=== PATIENT | female | born 1945 | race Caucasian/White ===

== ENCOUNTER 2018-03-27 01:25 | Outpatient (CLI) | payer MEDICARE, SELFPAY ==
[2018-03-27 11:33] LABS: INR 2.3 (1.0-3.5); Prothrombin Time 21.9 sec (9.3-10.8)
== END 2018-03-27 01:26 ==
PROVIDERS: PCP Family Medicine; Visit Provider Family Medicine
DX: I67.89 Other cerebrovascular disease (principal); Z79.01 Long term (current) use of anticoagulants
CPT/HCPCS: 36415; 85610

== ENCOUNTER 2018-04-23 09:34 | Outpatient (CLI) | payer MEDICARE, SELFPAY ==
[2018-04-23 11:21] LABS: ALT 24 U/L (12-78); AST 18 U/L (15-37); Albumin 3.9 g/dL (3.4-5.0); Alkaline Phosphatase 67 U/L (46-116); BUN 13 mg/dL (7-18); Bilirubin, Total 0.7 mg/dL (0.2-1.0); CREATININE 0.94 mg/dL (0.55-1.02); Calcium 8.5 mg/dL (8.5-10.1); Chloride 104 mmol/L (98-107); Cholesterol 161 mg/dL (50-200); Estimated GFR 58.37 (mL/min/1.73m2); Glucose 128 mg/dL (70-100); HDL Cholesterol 60 mg/dL (40-60); LDL CHOLESTEROL 86 mg/dL (<100); Potassium 4.3 mmol/L (3.5-5.1); Sodium 138 mmol/L (136-145); Total Protein 7.5 g/dL (6.4-8.2); Triglyceride 97 mg/dL (30-150)
[2018-04-23 11:59] LABS: Hemoglobin A1C 5.9 % (4.5-6.2)
== END 2018-04-23 09:35 ==
PROVIDERS: PCP Family Medicine; Visit Provider Family Medicine
DX: I10 Essential (primary) hypertension (principal); E11.9 Type 2 diabetes mellitus without complications; I63.9 Cerebral infarction, unspecified
CPT/HCPCS: 36415; 80053; 80061; 83721; 82043; 82570; 83036

== ENCOUNTER 2018-05-05 09:12 | Outpatient (CLI) | payer MEDICARE, SELFPAY | END 2018-05-05 09:32 | PROVIDERS: PCP Family Medicine; Visit Provider Family Medicine | DX: I67.89 Other cerebrovascular disease (principal); Z79.01 Long term (current) use of anticoagulants | CPT/HCPCS: 36415; 85610 ==

== ENCOUNTER 2018-05-09 12:56 | Outpatient (CLI) | payer MEDICARE, SELFPAY ==
--- NOTE | 2018-05-09 12:47 | DI.US_ITS ---
SYMPTOMS/DIAGNOSIS: POSTMENOPAUSAL BLEEDING, N95.0, ENDOMETRIAL BIOPSY INSUFFICIENT PELVIC ULTRASOUND: Comparison is made with July,. Transabdominal and transvaginal exams were performed. The uterus measures 5.3 x 2.2 x 3.9 cm. The endometrial stripe measures 2 mm in thickness. Calcified fibroid is again noted measuring 2.4 cm in greatest dimension. The ovaries were unable to be visualized. No free fluid or hydronephrosis is seen. IMPRESSION: Calcified uterine fibroid. Normal-thickness endometrial stripe. Nonvisualization of the ovaries.
== END 2018-05-09 13:16 ==
PROVIDERS: PCP Family Medicine; Visit Provider Family Medicine
DX: N95.0 Postmenopausal bleeding (principal); D25.9 Leiomyoma of uterus, unspecified
CPT/HCPCS: 76830; 76856

== ENCOUNTER 2018-06-04 00:55 | Outpatient (CLI) | payer MEDICARE, SELFPAY ==
[2018-06-04 11:29] LABS: INR 2.7 (1.0-3.5); Prothrombin Time 25.8 sec (9.3-10.8)
== END 2018-06-04 01:15 ==
PROVIDERS: PCP Family Medicine; Visit Provider Family Medicine
DX: I67.89 Other cerebrovascular disease (principal); Z79.01 Long term (current) use of anticoagulants
CPT/HCPCS: 36415; 85610

== ENCOUNTER 2018-07-07 01:46 | Outpatient (CLI) | payer MEDICARE, SELFPAY ==
[2018-07-07 11:39] LABS: INR 1.8 (1.0-3.5)
== END 2018-07-07 02:06 ==
LOC: LBO 01:46 → LOS 08:30
PROVIDERS: PCP Family Medicine; Visit Provider Family Medicine
DX: I67.89 Other cerebrovascular disease (principal); Z79.01 Long term (current) use of anticoagulants
CPT/HCPCS: 36415; 85610

== ENCOUNTER 2018-07-21 01:48 | Outpatient (CLI) | payer MEDICARE, SELFPAY ==
[2018-07-21 11:18] LABS: INR 1.8 (1.0-3.5); Prothrombin Time 17.3 sec (9.3-10.8)
== END 2018-07-21 02:08 ==
PROVIDERS: PCP Family Medicine; Visit Provider Family Medicine
DX: I67.89 Other cerebrovascular disease (principal); Z79.01 Long term (current) use of anticoagulants
CPT/HCPCS: 36415; 85610

== ENCOUNTER 2018-07-29 01:11 | Outpatient (CLI) | payer MEDICARE, SELFPAY ==
[2018-07-29 11:59] LABS: INR 2.3 (1.0-3.5); Prothrombin Time 21.4 sec (9.3-10.8)
== END 2018-07-29 01:31 ==
PROVIDERS: PCP Family Medicine; Visit Provider Family Medicine
DX: I67.89 Other cerebrovascular disease (principal); Z79.01 Long term (current) use of anticoagulants
CPT/HCPCS: 36415; 85610

== ENCOUNTER 2018-08-05 02:02 | Outpatient (CLI) | payer MEDICARE, SELFPAY ==
[2018-08-05 11:18] LABS: INR 2.2 (1.0-3.5); Prothrombin Time 21.1 sec (9.3-10.8)
== END 2018-08-05 02:22 ==
PROVIDERS: PCP Family Medicine; Visit Provider Family Medicine
DX: I67.89 Other cerebrovascular disease (principal); Z79.01 Long term (current) use of anticoagulants
CPT/HCPCS: 36415; 85610

== ENCOUNTER 2018-08-12 02:35 | Outpatient (CLI) | payer MEDICARE, SELFPAY ==
[2018-08-12 11:39] LABS: INR 2.8 (1.0-3.5); Prothrombin Time 28.7 sec (9.3-11.0)
== END 2018-08-12 02:55 ==
PROVIDERS: PCP Family Medicine; Visit Provider Family Medicine
DX: I67.89 Other cerebrovascular disease (principal); Z79.01 Long term (current) use of anticoagulants
CPT/HCPCS: 36415; 85610

== ENCOUNTER 2018-08-27 02:32 | Outpatient (CLI) | payer MEDICARE, SELFPAY ==
[2018-08-27 11:53] LABS: INR 2.3 (1.0-3.5); Prothrombin Time 22.8 sec (9.3-11.0)
== END 2018-08-27 02:52 ==
PROVIDERS: PCP Family Medicine; Visit Provider Family Medicine
DX: I67.89 Other cerebrovascular disease (principal); Z79.01 Long term (current) use of anticoagulants
CPT/HCPCS: 36415; 85610

== ENCOUNTER 2018-09-17 02:34 | Outpatient (CLI) | payer MEDICARE, SELFPAY ==
[2018-09-17 12:09] LABS: INR 2.9 (0.9-1.1); Prothrombin Time 29.1 sec (9.3-11.0)
== END 2018-09-17 02:54 ==
PROVIDERS: PCP Family Medicine; Visit Provider Family Medicine
DX: I67.89 Other cerebrovascular disease (principal); Z79.01 Long term (current) use of anticoagulants
CPT/HCPCS: 36415; 85610

== ENCOUNTER 2018-10-17 01:13 | Outpatient (CLI) | payer MEDICARE, SELFPAY ==
[2018-10-17 11:37] LABS: INR 3.5 (0.9-1.1); Prothrombin Time 35.5 sec (9.3-11.0)
== END 2018-10-17 01:33 ==
PROVIDERS: PCP Family Medicine; Visit Provider Family Medicine
DX: I67.89 Other cerebrovascular disease (principal); Z79.01 Long term (current) use of anticoagulants
CPT/HCPCS: 36415; 85610

== ENCOUNTER 2018-10-24 01:34 | Outpatient (CLI) | payer MEDICARE, SELFPAY ==
[2018-10-24 11:25] LABS: INR 2.9 (0.9-1.1)
[2018-10-24 11:32] LABS: ALT 28 U/L (12-78); AST 19 U/L (15-37); Alkaline Phosphatase 78 U/L (46-116); Anion Gap 7.4 mmol/L (3-11); BUN 13 mg/dL (7-18); Bilirubin, Total 0.6 mg/dL (0.2-1.0); CO2 29.6 mmol/L (21.0-32.0); CREATININE 0.82 mg/dL (0.55-1.02); Calcium 9.1 mg/dL (8.5-10.1); Chloride 104 mmol/L (98-107); Glucose 132 mg/dL (70-100); Potassium 4.6 mmol/L (3.5-5.1); Sodium 141 mmol/L (136-145); Total Protein 7.7 g/dL (6.4-8.2)
[2018-10-24 11:39] LABS: Hemoglobin A1C 6.1 % (4.5-6.2)
== END 2018-10-24 01:54 ==
PROVIDERS: PCP Family Medicine; Visit Provider Family Medicine
DX: I67.89 Other cerebrovascular disease (principal); Z79.01 Long term (current) use of anticoagulants; E11.9 Type 2 diabetes mellitus without complications
CPT/HCPCS: 36415; 80053; 82043; 82570; 83036; 85610

== ENCOUNTER 2018-11-07 02:21 | Outpatient (CLI) | payer MEDICARE, SELFPAY ==
[2018-11-07 11:06] LABS: INR 2.2 (0.9-1.1); Prothrombin Time 21.9 sec (9.3-11.0)
== END 2018-11-07 02:41 ==
PROVIDERS: PCP Family Medicine; Visit Provider Family Medicine
DX: I67.89 Other cerebrovascular disease (principal); Z79.01 Long term (current) use of anticoagulants
CPT/HCPCS: 36415; 85610

== ENCOUNTER 2018-11-19 01:45 | Outpatient (CLI) | payer MEDICARE, SELFPAY ==
--- NOTE | 2018-11-19 10:17 | DI.MAMMO_ITS ---
SYMPTOM/DIAGNOSIS: SCREENING, Z12.31 MAMMOGRAMS: Mammograms were interpreted according to the usual protocol including computer analysis with CAD system, tomosynthesis and C view imaging. Comparison is made with exams from [id number]. The breasts are composed of heterogeneously dense fibroglandular tissue, breast density, Category C. Benign calcifications are again noted bilaterally. There are also multiple stable benign appearing nodules. No suspicious masses or suspicious microcalcifications or changes are seen. IMPRESSION: Category 2, negative mammogram with benign findings. Yearly screening mammography is recommended. MQSA ASSESSMENT OF FINDINGS: Negative with benign findings. Category 2. Patient will receive a letter notifying them of these results. Bi-RADS category C. The breasts are heterogeneously dense, which may obscure small masses.
== END 2018-11-19 02:05 ==
PROVIDERS: PCP Family Medicine; Visit Provider Family Medicine
DX: Z12.31 Encounter for screening mammogram for malignant neoplasm of breast (principal)
CPT/HCPCS: 77063; 77067

== ENCOUNTER 2018-12-08 01:49 | Outpatient (CLI) | payer MEDICARE, SELFPAY ==
[2018-12-08 10:53] LABS: INR 2.7 (0.9-1.1); Prothrombin Time 27.4 sec (9.3-11.0)
== END 2018-12-08 02:09 ==
PROVIDERS: PCP Family Medicine; Visit Provider Family Medicine
DX: I67.89 Other cerebrovascular disease (principal); Z79.01 Long term (current) use of anticoagulants
CPT/HCPCS: 36415; 85610

== ENCOUNTER 2019-01-07 02:23 | Outpatient (CLI) | payer MEDICARE, SELFPAY ==
[2019-01-07 11:15] LABS: INR 2.3 (0.9-1.1); Prothrombin Time 22.8 sec (9.3-11.0)
== END 2019-01-07 02:43 ==
PROVIDERS: PCP Family Medicine; Visit Provider Family Medicine
DX: I67.89 Other cerebrovascular disease (principal); Z79.01 Long term (current) use of anticoagulants
CPT/HCPCS: 36415; 85610

== ENCOUNTER 2019-02-10 01:53 | Outpatient (CLI) | payer MEDICARE, SELFPAY ==
[2019-02-10 11:39] LABS: INR 1.6 (0.9-1.1); Prothrombin Time 15.8 sec (9.3-11.0)
== END 2019-02-10 02:13 ==
PROVIDERS: PCP Family Medicine; Visit Provider Family Medicine
DX: I67.89 Other cerebrovascular disease (principal); Z79.01 Long term (current) use of anticoagulants
CPT/HCPCS: 36415; 85610

== ENCOUNTER 2019-02-17 01:45 | Outpatient (CLI) | payer MEDICARE, SELFPAY ==
[2019-02-17 11:15] LABS: INR 2.2 (0.9-1.1); Prothrombin Time 22.5 sec (9.3-11.0)
== END 2019-02-17 02:05 ==
PROVIDERS: PCP Family Medicine; Visit Provider Family Medicine
DX: I67.89 Other cerebrovascular disease (principal); Z79.01 Long term (current) use of anticoagulants
CPT/HCPCS: 36415; 85610

== ENCOUNTER 2019-02-24 02:05 | Outpatient (CLI) | payer MEDICARE, SELFPAY ==
[2019-02-24 11:04] LABS: INR 2.3 (0.9-1.1)
== END 2019-02-24 02:25 ==
PROVIDERS: PCP Family Medicine; Visit Provider Family Medicine
DX: I67.89 Other cerebrovascular disease (principal); Z79.01 Long term (current) use of anticoagulants
CPT/HCPCS: 36415; 85610

== ENCOUNTER 2019-03-17 01:41 | Outpatient (CLI) | payer MEDICARE, SELFPAY ==
[2019-03-17 11:50] LABS: INR 2.8 (0.9-1.1); Prothrombin Time 28.3 sec (9.3-11.0)
== END 2019-03-17 02:01 ==
PROVIDERS: PCP Family Medicine; Visit Provider Family Medicine
DX: I67.89 Other cerebrovascular disease (principal); Z79.01 Long term (current) use of anticoagulants
CPT/HCPCS: 36415; 85610

== ENCOUNTER 2019-04-07 02:27 | Outpatient (CLI) | payer MEDICARE, SELFPAY ==
[2019-04-07 12:07] LABS: INR 2.6 (0.9-1.1); Prothrombin Time 26.3 sec (9.3-11.0)
== END 2019-04-07 02:47 ==
PROVIDERS: PCP Family Medicine; Visit Provider Family Medicine
DX: I67.89 Other cerebrovascular disease (principal); Z79.01 Long term (current) use of anticoagulants
CPT/HCPCS: 36415; 85610

== ENCOUNTER 2019-05-07 02:30 | Outpatient (CLI) | payer MEDICARE, SELFPAY ==
[2019-05-07 10:37] LABS: INR 2.3 (0.9-1.1); Prothrombin Time 22.7 sec (9.3-11.0)
== END 2019-05-07 02:50 ==
PROVIDERS: PCP Family Medicine; Visit Provider Family Medicine
DX: I67.89 Other cerebrovascular disease (principal); Z79.01 Long term (current) use of anticoagulants
CPT/HCPCS: 36415; 85610

== ENCOUNTER 2019-05-22 02:31 | Outpatient (CLI) | payer MEDICARE, SELFPAY ==
[2019-05-22 11:20] LABS: INR 2.8 (0.9-1.1); Prothrombin Time 27.6 sec (9.3-11.0)
[2019-05-22 11:26] LABS: ALT 29 U/L (14-59); AST 19 U/L (15-37); Albumin 3.9 g/dL (3.4-5.0); Alkaline Phosphatase 82 U/L (46-116); Anion Gap 8.9 mmol/L (3-11); BUN 14 mg/dL (7-18); Bilirubin, Total 0.6 mg/dL (0.2-1.0); CO2 28.1 mmol/L (21.0-32.0); CREATININE 0.96 mg/dL (0.55-1.02); Calcium 8.8 mg/dL (8.5-10.1); Chloride 103 mmol/L (98-107); Estimated GFR 56.81 (mL/min/1.73m2); Glucose 142 mg/dL (70-100); Potassium 4.4 mmol/L (3.5-5.1); Sodium 140 mmol/L (136-145); Total Protein 7.7 g/dL (6.4-8.2)
[2019-05-22 12:53] LABS: Hemoglobin A1C 6.1 % (4.5-6.2)
== END 2019-05-22 02:51 ==
LOC: LBO 02:32 → LOS 08:16
PROVIDERS: PCP Family Medicine; Visit Provider Family Medicine
DX: E11.9 Type 2 diabetes mellitus without complications (principal); I67.89 Other cerebrovascular disease; Z79.01 Long term (current) use of anticoagulants
CPT/HCPCS: 36415; 80053; 83036; 85610

== ENCOUNTER 2019-06-05 02:43 | Outpatient (CLI) | payer MEDICARE, SELFPAY ==
[2019-06-05 11:14] LABS: INR 2.7 (0.9-1.1); Prothrombin Time 26.3 sec (9.3-11.0)
== END 2019-06-05 03:03 ==
PROVIDERS: PCP Family Medicine; Visit Provider Family Medicine
DX: I67.89 Other cerebrovascular disease (principal); Z79.01 Long term (current) use of anticoagulants
CPT/HCPCS: 36415; 85610

== ENCOUNTER 2019-07-06 01:16 | Outpatient (CLI) | payer MEDICARE, SELFPAY ==
--- NOTE | 2019-07-06 12:40 | DI.US_ITS ---
EXAM: US PELVIS AND TRANSVAGINAL CLINICAL HISTORY: post menopausal spotting N95.0 TECHNIQUE: Ultrasound performed using standard protocol. COMPARISON: PELVLIC/LOWER ABD W/WO CONT(P) from 05/15/2017 US PELVIS TRANSVAGINAL from 05/09/2018 FINDINGS: Uterus measures 7 cm long by 3.1 cm AP x 3.3 cm transverse. There is a 2.7 x 2.5 x 2.1 cm calcified mass in the right aspect of the uterus, most consistent with a uterine fibroid. This is visualized o n the CT scan of the abdomen and pelvis from 05/15/2017. Endometrial stripe was not visualized. The ovaries were not visualized transabdominally or transvaginally. No adnexal mass is seen. No free pelvic fluid or hydronephrosis is present. IMPRESSION: 1. Limited examination secondary to bowel gas, calcified uterine fibroid. 2. Stable uterine fibroid. 3. Ovaries could not be visualized transabdominally or transvaginally.
== END 2019-07-06 01:36 ==
PROVIDERS: PCP Family Medicine; Visit Provider Family Medicine
DX: N95.0 Postmenopausal bleeding (principal); D25.2 Subserosal leiomyoma of uterus
CPT/HCPCS: 76830; 76856

== ENCOUNTER 2019-07-06 01:36 | Outpatient (CLI) | payer MEDICARE, SELFPAY ==
[2019-07-06 11:43] LABS: INR 3.3 (0.9-1.1); Prothrombin Time 32.4 sec (9.3-11.0)
== END 2019-07-06 01:56 ==
PROVIDERS: PCP Family Medicine; Visit Provider Family Medicine
DX: I67.89 Other cerebrovascular disease (principal); Z79.01 Long term (current) use of anticoagulants; N95.0 Postmenopausal bleeding; D25.2 Subserosal leiomyoma of uterus
CPT/HCPCS: 36415; 76830; 76856; 85610

== ENCOUNTER 2019-07-13 02:07 | Outpatient (CLI) | payer MEDICARE, SELFPAY ==
[2019-07-13 12:22] LABS: INR 2.4 (0.9-1.1)
== END 2019-07-13 02:27 ==
PROVIDERS: PCP Family Medicine; Visit Provider Family Medicine
DX: I67.89 Other cerebrovascular disease (principal); Z79.01 Long term (current) use of anticoagulants
CPT/HCPCS: 36415; 85610

== ENCOUNTER 2019-08-12 01:21 | Outpatient (CLI) | payer MEDICARE, SELFPAY ==
[2019-08-12 10:18] LABS: INR 2.9 (0.9-1.1); Prothrombin Time 28.4 sec (9.3-11.0)
== END 2019-08-12 01:41 ==
PROVIDERS: PCP Family Medicine; Visit Provider Family Medicine
DX: I67.89 Other cerebrovascular disease (principal); Z79.01 Long term (current) use of anticoagulants
CPT/HCPCS: 36415; 85610

== ENCOUNTER 2019-09-14 01:17 | Outpatient (CLI) | payer MEDICARE, SELFPAY ==
[2019-09-14 12:14] LABS: INR 2.2 (0.9-1.1); Prothrombin Time 21.6 sec (9.3-11.0)
== END 2019-09-14 01:37 ==
PROVIDERS: PCP Family Medicine; Visit Provider Family Medicine
DX: I67.89 Other cerebrovascular disease (principal); Z79.01 Long term (current) use of anticoagulants
CPT/HCPCS: 36415; 85610

== ENCOUNTER 2019-10-15 00:17 | Outpatient (CLI) | payer MEDICARE, SELFPAY ==
[2019-10-15 10:49] LABS: INR 3.2 (0.9-1.1); Prothrombin Time 31.5 sec (9.3-11.0)
== END 2019-10-15 00:37 ==
PROVIDERS: PCP Family Medicine; Visit Provider Family Medicine
DX: I67.89 Other cerebrovascular disease (principal); Z79.01 Long term (current) use of anticoagulants
CPT/HCPCS: 36415; 85610

== ENCOUNTER 2019-10-22 03:32 | Outpatient (CLI) | payer MEDICARE, SELFPAY ==
[2019-10-22 11:11] LABS: Prothrombin Time 34.5 sec (9.3-11.0)
[2019-10-22 11:21] LABS: INR 3.5 (0.9-1.1)
== END 2019-10-22 03:52 ==
PROVIDERS: PCP Family Medicine; Visit Provider Family Medicine
DX: Z79.01 Long term (current) use of anticoagulants (principal); I67.89 Other cerebrovascular disease
CPT/HCPCS: 36415; 85610

== ENCOUNTER 2019-11-02 01:53 | Outpatient (CLI) | payer MEDICARE, SELFPAY ==
[2019-11-02 12:16] LABS: INR 2.6 (0.9-1.1); Prothrombin Time 25.2 sec (9.3-11.0)
== END 2019-11-02 02:13 ==
PROVIDERS: PCP Family Medicine; Visit Provider Family Medicine
DX: I67.89 Other cerebrovascular disease (principal); Z79.01 Long term (current) use of anticoagulants
CPT/HCPCS: 36415; 85610

== ENCOUNTER 2019-11-16 02:59 | Outpatient (CLI) | payer MEDICARE, SELFPAY ==
[2019-11-16 10:57] LABS: INR 2.3 (0.9-1.1); Prothrombin Time 22.2 sec (9.3-11.0)
== END 2019-11-16 03:19 ==
PROVIDERS: PCP Family Medicine; Visit Provider Family Medicine
DX: I67.89 Other cerebrovascular disease (principal); Z79.01 Long term (current) use of anticoagulants
CPT/HCPCS: 36415; 85610

== ENCOUNTER 2020-02-29 02:23 | Outpatient (CLI) | payer MEDICARE, SELFPAY ==
[2020-02-29 12:45] LABS: ALT 21 U/L (14-59); AST 15 U/L (15-37); Albumin 3.9 g/dL (3.4-5.0); Alkaline Phosphatase 76 U/L (46-116); Anion Gap 10.6 mmol/L (3-11); BUN 19 mg/dL (7-18); Bilirubin, Total 0.6 mg/dL (0.2-1.0); CO2 26.4 mmol/L (21.0-32.0); CREATININE 0.79 mg/dL (0.55-1.02); Calcium 9.3 mg/dL (8.5-10.1); Calculated LDL 82 mg/dL (<100); Chloride 104 mmol/L (98-107); Cholesterol 154 mg/dL (<200); Glucose 111 mg/dL (74-106); HDL Cholesterol 57 mg/dL (40-60); Hemoglobin A1C 6.1 % (3.8-5.6); Potassium 4.5 mmol/L (3.5-5.1); Sodium 141 mmol/L (136-145); Total Protein 7.4 g/dL (6.4-8.2); Triglyceride 77 mg/dL (<150)
[2020-02-29 12:45] LABS: INR 1.5 (0.9-1.1); Prothrombin Time 15.3 sec (9.3-11.0)
== END 2020-02-29 02:43 ==
PROVIDERS: PCP Family Medicine; Visit Provider Family Medicine
DX: E11.9 Type 2 diabetes mellitus without complications (principal); E55.9 Vitamin D deficiency, unspecified; I67.89 Other cerebrovascular disease; Z79.01 Long term (current) use of anticoagulants
CPT/HCPCS: 36415; 80053; 80061; 82306; 82043; 82570; 83036; 85610

== ENCOUNTER 2020-03-09 01:28 | Outpatient (CLI) | payer MEDICARE, SELFPAY ==
[2020-03-09 14:31] LABS: INR 2.2 (0.9-1.1)
== END 2020-03-09 01:48 ==
PROVIDERS: PCP Family Medicine; Visit Provider Family Medicine
DX: I67.89 Other cerebrovascular disease (principal); Z79.01 Long term (current) use of anticoagulants
CPT/HCPCS: 36415; 85610

== ENCOUNTER 2020-04-22 00:37 | Outpatient (CLI) | payer MEDICARE, SELFPAY ==
[2020-04-22 13:23] LABS: INR 2.6 (0.9-1.1); Prothrombin Time 25.1 sec (9.3-11.0)
== END 2020-04-22 00:57 ==
PROVIDERS: PCP Family Medicine; Visit Provider Family Medicine
DX: Z79.01 Long term (current) use of anticoagulants (principal); I67.89 Other cerebrovascular disease
CPT/HCPCS: 36415; 85610

== ENCOUNTER 2020-05-23 03:14 | Outpatient (CLI) | payer MEDICARE, SELFPAY ==
[2020-05-23 13:22] LABS: INR 2.6 (0.9-1.1); Prothrombin Time 25.4 sec (9.3-11.0)
== END 2020-05-23 03:34 ==
PROVIDERS: PCP Family Medicine; Visit Provider Family Medicine
DX: I67.89 Other cerebrovascular disease (principal); Z79.01 Long term (current) use of anticoagulants
CPT/HCPCS: 36415; 85610

== ENCOUNTER 2020-06-22 04:09 | Outpatient (CLI) | payer MEDICARE, SELFPAY ==
[2020-06-22 13:25] LABS: INR 2.4 (0.9-1.1)
== END 2020-06-22 04:29 ==
PROVIDERS: PCP Family Medicine; Visit Provider Family Medicine
DX: I67.89 Other cerebrovascular disease (principal); Z79.01 Long term (current) use of anticoagulants
CPT/HCPCS: 36415; 85610

== ENCOUNTER 2020-07-25 03:11 | Outpatient (CLI) | payer MEDICARE, SELFPAY ==
[2020-07-25 12:31] LABS: INR 2.6 (0.9-1.1); Prothrombin Time 25.5 sec (9.3-11.0)
== END 2020-07-25 03:31 ==
PROVIDERS: PCP Family Medicine; Visit Provider Family Medicine
DX: I67.89 Other cerebrovascular disease (principal); Z79.01 Long term (current) use of anticoagulants
CPT/HCPCS: 36415; 85610

== ENCOUNTER 2020-08-22 02:48 | Outpatient (CLI) | payer MEDICARE, SELFPAY ==
[2020-08-22 12:48] LABS: INR 2.3 (0.9-1.1); Prothrombin Time 22.9 sec (9.3-11.0)
== END 2020-08-22 03:08 ==
PROVIDERS: PCP Family Medicine; Visit Provider Family Medicine
DX: I67.89 Other cerebrovascular disease (principal); Z79.01 Long term (current) use of anticoagulants
CPT/HCPCS: 36415; 85610

== ENCOUNTER 2020-09-23 01:13 | Outpatient (CLI) | payer MEDICARE, SELFPAY ==
[2020-09-23 12:36] LABS: INR 2.9 (0.9-1.1); Prothrombin Time 28.2 sec (9.3-11.0)
== END 2020-09-23 01:33 ==
PROVIDERS: PCP Family Medicine; Visit Provider Family Medicine
DX: I67.89 Other cerebrovascular disease (principal); Z79.01 Long term (current) use of anticoagulants
CPT/HCPCS: 36415; 85610

== ENCOUNTER 2020-09-28 12:32 | Outpatient (REF) | payer MEDICARE, SELFPAY ==
--- NOTE | 2020-09-28 10:45 | SKI_PTH ---
PATIENT: Viry Ward LOC: [facility] U#:[id number] AGE/SX: 75/F ROOM: RE09/28/[address]: Ginny Christina MD : [id number] BED: DIS: 09/28/2020 SPEC #: [id number] RECD: 09/28/20 13:01 STATUS: [facility] PRO #: [id number] EMY: 09/28/20 10:[address]: Ginny Christina DEPT: Surgical Specimen RECD BY: Rosalinda Pittman Tissues: 1 - SKIN BIOPSY(SHAVE/PUNCH) Procedures: SKIN LEVEL 4 Comments: [id number]
== END 2020-09-28 12:33 | disposition home or self-care (01) ==
LOC: LBN 12:32
PROVIDERS: PCP Family Medicine; Visit Provider Family Medicine
DX: L82.1 Other seborrheic keratosis (principal)
CPT/HCPCS: 88305

== ENCOUNTER 2020-10-24 03:33 | Outpatient (CLI) | payer MEDICARE, SELFPAY ==
[2020-10-24 12:43] LABS: INR 2.9 (0.9-1.1); Prothrombin Time 28.3 sec (9.3-11.0)
== END 2020-10-24 03:34 | disposition home or self-care (01) ==
LOC: LOS 03:33
PROVIDERS: PCP Family Medicine; Visit Provider Family Medicine
DX: I67.89 Other cerebrovascular disease (principal); Z79.01 Long term (current) use of anticoagulants
CPT/HCPCS: 36415; 85610

== ENCOUNTER 2020-11-22 03:36 | Outpatient (CLI) | payer MEDICARE, SELFPAY ==
[2020-11-22 12:59] LABS: INR 2.1 (0.9-1.1); Prothrombin Time 20.5 sec (9.3-11.0)
== END 2020-11-22 03:37 | disposition home or self-care (01) ==
LOC: LOS 03:36
PROVIDERS: PCP Family Medicine; Visit Provider Family Medicine
DX: I67.89 Other cerebrovascular disease (principal); Z79.01 Long term (current) use of anticoagulants
CPT/HCPCS: 36415; 85610

== ENCOUNTER 2020-12-23 01:41 | Outpatient (CLI) | payer MEDICARE, SELFPAY ==
[2020-12-23 13:19] LABS: INR 3.5 (0.9-1.1); Prothrombin Time 33.9 sec (9.3-11.0)
[2020-12-23 13:19] LABS: ALT 27 U/L (14-59); AST 17 U/L (15-37); Albumin 3.9 g/dL (3.4-5.0); Anion Gap 6.8 mmol/L (3-11); BUN 19 mg/dL (7-18); Bilirubin, Total 0.6 mg/dL (0.2-1.0); CO2 30.2 mmol/L (21.0-32.0); CREATININE 0.8 mg/dL (0.55-1.02); Calcium 8.6 mg/dL (8.5-10.1); Chloride 106 mmol/L (98-107); Cholesterol 133 mg/dL (<200); Glucose 118 mg/dL (74-106); Hemoglobin A1C 5.8 % (<5.7); Potassium 4.3 mmol/L (3.5-5.1); Sodium 143 mmol/L (136-145); Total Protein 7.5 g/dL (6.4-8.2); Triglyceride 75 mg/dL (<150)
[2020-12-23 13:40] LABS: Alkaline Phosphatase 80 U/L (46-116); Calculated LDL 56 mg/dL (<100); HDL Cholesterol 62 mg/dL (40-60)
== END 2020-12-23 01:42 | disposition home or self-care (01) ==
LOC: LOS 01:42
PROVIDERS: PCP Family Medicine; Visit Provider Family Medicine
DX: I67.89 Other cerebrovascular disease (principal); Z79.01 Long term (current) use of anticoagulants; E11.9 Type 2 diabetes mellitus without complications
CPT/HCPCS: 36415; 80053; 80061; 83036; 85610

== ENCOUNTER 2020-12-28 04:21 | Outpatient (CLI) | payer MEDICARE, SELFPAY ==
[2020-12-28 13:34] LABS: Prothrombin Time 19.9 sec (9.3-11.0)
== END 2020-12-28 04:22 | disposition home or self-care (01) ==
PROVIDERS: PCP Family Medicine; Visit Provider Family Medicine
DX: I67.89 Other cerebrovascular disease (principal); Z79.01 Long term (current) use of anticoagulants
CPT/HCPCS: 36415; 85610

== ENCOUNTER 2021-01-11 02:27 | Outpatient (CLI) | payer MEDICARE, SELFPAY ==
[2021-01-11 13:01] LABS: INR 1.2 (0.9-1.1); Prothrombin Time 12.1 sec (9.3-11.0)
== END 2021-01-11 02:28 | disposition home or self-care (01) ==
LOC: LOS 02:28
PROVIDERS: PCP Family Medicine; Visit Provider Family Medicine
DX: I67.89 Other cerebrovascular disease (principal); Z79.01 Long term (current) use of anticoagulants
CPT/HCPCS: 36415; 85610

== ENCOUNTER 2021-01-18 03:14 | Outpatient (CLI) | payer MEDICARE, SELFPAY ==
[2021-01-18 13:23] LABS: Prothrombin Time 19.3 sec (9.3-11.0)
[2021-01-18 13:24] LABS: INR 1.9 (0.9-1.1)
== END 2021-01-18 03:15 | disposition home or self-care (01) ==
LOC: LOS 03:14
PROVIDERS: PCP Family Medicine; Visit Provider Family Medicine
DX: I67.89 Other cerebrovascular disease (principal); Z79.01 Long term (current) use of anticoagulants
CPT/HCPCS: 36415; 85610

== ENCOUNTER 2021-02-01 02:35 | Outpatient (CLI) | payer MEDICARE, SELFPAY ==
[2021-02-01 14:13] LABS: INR 2.6 (0.9-1.1); Prothrombin Time 25.2 sec (9.3-11.0)
== END 2021-02-01 02:36 | disposition home or self-care (01) ==
LOC: LOS 02:36
PROVIDERS: PCP Family Medicine; Visit Provider Family Medicine
DX: I67.89 Other cerebrovascular disease (principal); Z79.01 Long term (current) use of anticoagulants
CPT/HCPCS: 36415; 85610

== ENCOUNTER 2021-03-03 01:09 | Outpatient (CLI) | payer MEDICARE, SELFPAY ==
[2021-03-03 13:02] LABS: Prothrombin Time 24.1 sec (9.3-11.0)
[2021-03-03 13:05] LABS: INR 2.4 (0.9-1.1)
== END 2021-03-03 01:10 | disposition home or self-care (01) ==
LOC: LOS 01:09
PROVIDERS: PCP Family Medicine; Visit Provider Family Medicine
DX: I67.89 Other cerebrovascular disease (principal); Z79.01 Long term (current) use of anticoagulants
CPT/HCPCS: 36415; 85610

== ENCOUNTER 2021-03-27 10:41 | Outpatient (CLI) | payer MEDICARE, SELFPAY ==
[2021-03-27 13:43] LABS: Hemoglobin A1C 6.1 % (<5.7)
== END 2021-03-27 10:42 | disposition home or self-care (01) ==
LOC: LOS 10:42
PROVIDERS: PCP Family Medicine; Visit Provider Family Medicine
DX: E11.9 Type 2 diabetes mellitus without complications (principal)
CPT/HCPCS: 36415; 83036

== ENCOUNTER 2021-04-03 03:38 | Outpatient (CLI) | payer MEDICARE, SELFPAY ==
[2021-04-03 12:52] LABS: INR 3.1 (0.9-1.1); Prothrombin Time 30.7 sec (9.3-11.0)
== END 2021-04-03 03:39 | disposition home or self-care (01) ==
LOC: LOS 03:38
PROVIDERS: PCP Family Medicine; Visit Provider Family Medicine
DX: I67.89 Other cerebrovascular disease (principal); Z86.73 Personal history of transient ischemic attack (TIA), and cerebral infarction without residual deficits; Z79.01 Long term (current) use of anticoagulants
CPT/HCPCS: 36415; 85610

== ENCOUNTER 2021-05-04 02:35 | Outpatient (CLI) | payer MEDICARE, SELFPAY ==
[2021-05-04 12:40] LABS: INR 2.3 (0.9-1.1); Prothrombin Time 22.9 sec (9.3-11.0)
== END 2021-05-04 02:36 | disposition home or self-care (01) ==
LOC: LOS 02:35
PROVIDERS: PCP Family Medicine; Visit Provider Family Medicine
DX: I67.89 Other cerebrovascular disease (principal); Z86.73 Personal history of transient ischemic attack (TIA), and cerebral infarction without residual deficits; Z79.01 Long term (current) use of anticoagulants
CPT/HCPCS: 36415; 85610

== ENCOUNTER 2021-06-02 01:43 | Outpatient (CLI) | payer MEDICARE, SELFPAY ==
[2021-06-02 12:47] LABS: INR 3.2 (0.9-1.1); Prothrombin Time 30.8 sec (9.3-11.0)
== END 2021-06-02 01:44 | disposition home or self-care (01) ==
LOC: LOS 01:43
PROVIDERS: PCP Family Medicine; Visit Provider Family Medicine
DX: Z79.01 Long term (current) use of anticoagulants (principal)
CPT/HCPCS: 36415; 85610

== ENCOUNTER 2021-06-16 01:53 | Outpatient (CLI) | payer MEDICARE, SELFPAY ==
[2021-06-16 10:03] LABS: Prothrombin Time 29.1 sec (9.3-11.0)
== END 2021-06-16 01:54 | disposition home or self-care (01) ==
LOC: LOS 01:54
PROVIDERS: PCP Family Medicine; Visit Provider Family Medicine
DX: I67.89 Other cerebrovascular disease (principal); Z79.01 Long term (current) use of anticoagulants
CPT/HCPCS: 36415; 85610

== ENCOUNTER 2021-07-17 02:05 | Outpatient (CLI) | payer MEDICARE, SELFPAY ==
[2021-07-17 11:39] LABS: INR 3.6 (0.9-1.1); Prothrombin Time 35.4 sec (9.3-11.0)
== END 2021-07-17 02:06 | disposition home or self-care (01) ==
LOC: LOS 02:05
PROVIDERS: PCP Family Medicine; Visit Provider Family Medicine
DX: Z79.01 Long term (current) use of anticoagulants (principal)
CPT/HCPCS: 36415; 85610

== ENCOUNTER 2021-08-01 02:44 | Outpatient (CLI) | payer MEDICARE, SELFPAY ==
[2021-08-01 09:17] LABS: INR 2.5 (0.9-1.1); Prothrombin Time 24.8 sec (9.3-11.0)
== END 2021-08-01 02:45 | disposition home or self-care (01) ==
LOC: LBO 02:44
PROVIDERS: PCP Family Medicine; Visit Provider Family Medicine
DX: Z79.01 Long term (current) use of anticoagulants (principal)
CPT/HCPCS: 36415; 85610

== ENCOUNTER 2021-08-15 01:56 | Outpatient (CLI) | payer MEDICARE, SELFPAY ==
[2021-08-15 08:58] LABS: Prothrombin Time 39.1 sec (9.3-11.0)
== END 2021-08-15 01:57 | disposition home or self-care (01) ==
LOC: LBO 01:56
PROVIDERS: PCP Family Medicine; Visit Provider Family Medicine
DX: I67.89 Other cerebrovascular disease (principal); Z79.01 Long term (current) use of anticoagulants
CPT/HCPCS: 36415; 85610

== ENCOUNTER 2021-08-29 03:02 | Outpatient (CLI) | payer MEDICARE, SELFPAY ==
[2021-08-29 09:24] LABS: INR 2.5 (0.9-1.1); Prothrombin Time 24.6 sec (9.3-11.0)
== END 2021-08-29 03:03 | disposition home or self-care (01) ==
LOC: LBO 03:02
PROVIDERS: PCP Family Medicine; Visit Provider Family Medicine
DX: Z79.01 Long term (current) use of anticoagulants (principal)
CPT/HCPCS: 36415; 85610

== ENCOUNTER 2021-10-04 01:46 | Outpatient (CLI) | payer MEDICARE, SELFPAY ==
[2021-10-04 11:22] LABS: INR 1.9 (0.9-1.1); Prothrombin Time 18.7 sec (9.3-11.0)
== END 2021-10-04 01:47 | disposition home or self-care (01) ==
LOC: LBO 01:46
PROVIDERS: PCP Family Medicine; Visit Provider Family Medicine
DX: I67.89 Other cerebrovascular disease (principal); Z79.01 Long term (current) use of anticoagulants
CPT/HCPCS: 36415; 85610

== ENCOUNTER 2021-11-01 03:55 | Outpatient (CLI) | payer MEDICARE, SELFPAY ==
[2021-11-01 08:41] LABS: INR 1.8 (0.9-1.1); Prothrombin Time 17.6 sec (9.3-11.0)
== END 2021-11-01 03:56 | disposition home or self-care (01) ==
LOC: LBO 03:55
PROVIDERS: PCP Family Medicine; Visit Provider Family Medicine
DX: Z79.01 Long term (current) use of anticoagulants (principal); I67.89 Other cerebrovascular disease
CPT/HCPCS: 36415; 85610

== ENCOUNTER 2021-11-15 02:13 | Outpatient (CLI) | payer MEDICARE, SELFPAY ==
[2021-11-15 08:50] LABS: INR 3.4 (0.9-1.1); Prothrombin Time 33.4 sec (9.3-11.0)
== END 2021-11-15 02:14 | disposition home or self-care (01) ==
LOC: LBO 02:13
PROVIDERS: PCP Family Medicine; Visit Provider Family Medicine
DX: Z79.01 Long term (current) use of anticoagulants (principal); I67.89 Other cerebrovascular disease
CPT/HCPCS: 36415; 85610

== ENCOUNTER 2021-11-22 12:38 | Outpatient (CLI) | payer MEDICARE, SELFPAY ==
[2021-11-22 11:29] LABS: INR 4.3 (0.9-1.1)
== END 2021-11-22 12:39 | disposition home or self-care (01) ==
LOC: LBO 12:40
PROVIDERS: Referring Provider Nurse Practitioner Family; Visit Provider Nurse Practitioner Family
DX: I63.9 Cerebral infarction, unspecified (principal)
CPT/HCPCS: 36415; 85610

== ENCOUNTER 2021-11-28 04:38 | Outpatient (CLI) | payer MEDICARE, SELFPAY ==
[2021-11-28 12:03] LABS: INR 1.5 (0.9-1.1)
== END 2021-11-28 04:39 | disposition home or self-care (01) ==
LOC: LBO 04:38
PROVIDERS: PCP Family Medicine; Visit Provider Family Medicine
DX: I67.89 Other cerebrovascular disease; Z79.01 Long term (current) use of anticoagulants
CPT/HCPCS: 36415; 85610

== ENCOUNTER 2021-12-05 03:12 | Outpatient (CLI) | payer MEDICARE, SELFPAY ==
[2021-12-05 13:23] LABS: INR 1.5 (0.9-1.1)
== END 2021-12-05 03:13 | disposition home or self-care (01) ==
LOC: LBO 03:12
PROVIDERS: PCP Family Medicine; Visit Provider Family Medicine
DX: I67.89 Other cerebrovascular disease (principal); Z79.01 Long term (current) use of anticoagulants
CPT/HCPCS: 36415; 85610

== ENCOUNTER 2021-12-11 02:47 | Outpatient (CLI) | payer MEDICARE, SELFPAY ==
[2021-12-11 14:33] LABS: INR 1.5 (0.9-1.1); Prothrombin Time 14.5 sec (9.3-11.0)
== END 2021-12-11 02:48 | disposition home or self-care (01) ==
LOC: LBO 02:47
PROVIDERS: PCP Family Medicine; Visit Provider Family Medicine
DX: Z79.01 Long term (current) use of anticoagulants (principal); I67.89 Other cerebrovascular disease
CPT/HCPCS: 36415; 85610

== ENCOUNTER 2022-01-01 01:27 | Outpatient (CLI) | payer MEDICARE, SELFPAY ==
[2022-01-01 13:00] LABS: INR 3.2 (0.9-1.1); Prothrombin Time 31.4 sec (9.3-11.0)
[2022-01-01 13:22] LABS: ALT 29 U/L (14-59); Anion Gap 8.7 mmol/L (3-11); BUN 19 mg/dL (7-18); CO2 26.3 mmol/L (21.0-32.0); CREATININE 0.9 mg/dL (0.55-1.02); Calcium 8.7 mg/dL (8.5-10.1); Chloride 103 mmol/L (98-107); Glucose 140 mg/dL (74-106); Potassium 4.5 mmol/L (3.5-5.1); Sodium 138 mmol/L (136-145)
[2022-01-01 13:47] LABS: Calculated LDL 70 mg/dL (<100); Cholesterol 148 mg/dL (<200); HDL Cholesterol 63 mg/dL (40-60); Triglyceride 76 mg/dL (<150)
[2022-01-01 13:53] LABS: Hemoglobin A1C 6.4 % (<5.7)
== END 2022-01-01 01:28 | disposition home or self-care (01) ==
LOC: LOS 01:27
PROVIDERS: PCP Family Medicine; Visit Provider Family Medicine
DX: E11.9 Type 2 diabetes mellitus without complications (principal); I10 Essential (primary) hypertension; I63.89 Other cerebral infarction; E78.5 Hyperlipidemia, unspecified; N93.9 Abnormal uterine and vaginal bleeding, unspecified; I67.89 Other cerebrovascular disease; Z79.01 Long term (current) use of anticoagulants
CPT/HCPCS: 36415; 80048; 80061; 82043; 82570; 83036; 84460; 85610

== ENCOUNTER 2022-01-03 13:00 | Outpatient (REF) | payer MEDICARE, SELFPAY ==
[2022-01-03 14:23] LABS: COMMENT (LAB VIEW ONLY) < 13.00 mg/dL
== END 2022-01-03 13:01 | disposition home or self-care (01) ==
LOC: LBN 13:00
PROVIDERS: PCP Family Medicine; Visit Provider Family Medicine
DX: E11.9 Type 2 diabetes mellitus without complications (principal); I10 Essential (primary) hypertension
CPT/HCPCS: 82043; 82570

== ENCOUNTER 2022-01-09 02:05 | Outpatient (CLI) | payer MEDICARE, SELFPAY ==
[2022-01-09 12:54] LABS: INR 1.9 (0.9-1.1); Prothrombin Time 19.2 sec (9.3-11.0)
== END 2022-01-09 02:06 | disposition home or self-care (01) ==
LOC: LOS 02:05
PROVIDERS: PCP Family Medicine; Visit Provider Family Medicine
DX: I63.89 Other cerebral infarction (principal); Z79.01 Long term (current) use of anticoagulants
CPT/HCPCS: 36415; 85610

== ENCOUNTER 2022-01-19 01:35 | Outpatient (CLI) | payer MEDICARE, SELFPAY ==
[2022-01-19 12:30] LABS: INR 1.8 (0.9-1.1); Prothrombin Time 17.9 sec (9.3-11.0)
== END 2022-01-19 01:36 | disposition home or self-care (01) ==
LOC: LOS 01:36
PROVIDERS: PCP Family Medicine; Visit Provider Family Medicine
DX: I63.89 Other cerebral infarction (principal); Z79.01 Long term (current) use of anticoagulants
CPT/HCPCS: 36415; 85610

== ENCOUNTER 2022-01-26 01:12 | Outpatient (CLI) | payer MEDICARE, SELFPAY ==
[2022-01-26 15:19] LABS: Prothrombin Time 21.8 sec (9.3-11.0)
[2022-01-26 15:55] LABS: INR 2.3 (0.9-1.1)
== END 2022-01-26 01:13 | disposition home or self-care (01) ==
LOC: LOS 01:12
PROVIDERS: PCP Family Medicine; Visit Provider Family Medicine
DX: I63.89 Other cerebral infarction (principal); Z79.01 Long term (current) use of anticoagulants
CPT/HCPCS: 36415; 85610

== ENCOUNTER 2022-02-09 10:35 | Outpatient (CLI) | payer MEDICARE, SELFPAY ==
[2022-02-09 09:11] LABS: INR 3.1 (0.9-1.1); Prothrombin Time 29.2 sec (9.3-11.0)
== END 2022-02-09 10:36 | disposition home or self-care (01) ==
LOC: LBO 10:35
PROVIDERS: PCP Family Medicine; Visit Provider Nurse Practitioner Family
DX: I63.89 Other cerebral infarction (principal); Z79.01 Long term (current) use of anticoagulants
CPT/HCPCS: 36415; 85610

== ENCOUNTER 2022-02-16 11:44 | Outpatient (CLI) | payer MEDICARE, SELFPAY ==
[2022-02-16 12:55] LABS: INR 2.8 (0.9-1.1)
== END 2022-02-16 11:45 | disposition home or self-care (01) ==
LOC: LOS 11:49
PROVIDERS: PCP Family Medicine; Visit Provider Nurse Practitioner Family
DX: I63.89 Other cerebral infarction (principal); Z79.01 Long term (current) use of anticoagulants
CPT/HCPCS: 36415; 85610

== ENCOUNTER 2022-02-23 02:35 | Outpatient (CLI) | payer MEDICARE, SELFPAY ==
[2022-02-23 12:39] LABS: INR 2.9 (0.9-1.1)
== END 2022-02-23 02:36 | disposition home or self-care (01) ==
LOC: LOS 02:35
PROVIDERS: PCP Family Medicine; Visit Provider Family Medicine
DX: I63.89 Other cerebral infarction (principal); Z79.01 Long term (current) use of anticoagulants
CPT/HCPCS: 36415; 85610

== ENCOUNTER 2022-03-09 09:16 | Outpatient (CLI) | payer MEDICARE, SELFPAY ==
[2022-03-09 12:41] LABS: INR 1.4 (0.9-1.1); Prothrombin Time 14.2 sec (9.3-11.0)
== END 2022-03-09 09:17 | disposition home or self-care (01) ==
LOC: LOS 09:19
PROVIDERS: PCP Family Medicine; Visit Provider Nurse Practitioner Family
DX: I63.9 Cerebral infarction, unspecified (principal); Z79.01 Long term (current) use of anticoagulants
CPT/HCPCS: 36415; 85610

== ENCOUNTER 2022-03-28 02:59 | Outpatient (CLI) | payer MEDICARE, SELFPAY ==
[2022-03-28 12:42] LABS: Prothrombin Time 27.9 sec (9.3-11.0)
== END 2022-03-28 03:00 | disposition home or self-care (01) ==
LOC: LOS 02:59
PROVIDERS: Nurse Practitioner Family; PCP Family Medicine; Visit Provider Family Medicine
DX: I63.89 Other cerebral infarction (principal); Z79.01 Long term (current) use of anticoagulants
CPT/HCPCS: 36415; 85610

== ENCOUNTER 2022-04-04 03:13 | Outpatient (CLI) | payer MEDICARE, SELFPAY ==
[2022-04-04 12:35] LABS: INR 3.1 (0.9-1.1); Prothrombin Time 29.2 sec (9.3-11.0)
== END 2022-04-04 03:14 | disposition home or self-care (01) ==
LOC: LOS 03:13
PROVIDERS: Nurse Practitioner Family; PCP Family Medicine; Visit Provider Family Medicine
DX: I63.9 Cerebral infarction, unspecified (principal)
CPT/HCPCS: 36415; 85610

== ENCOUNTER 2022-04-11 09:45 | Outpatient (CLI) | payer MEDICARE, SELFPAY ==
[2022-04-11 12:50] LABS: INR 2.5 (0.9-1.1); Prothrombin Time 23.5 sec (9.3-11.0)
== END 2022-04-11 09:46 | disposition home or self-care (01) ==
LOC: LOS 09:46
PROVIDERS: PCP Family Medicine; Visit Provider Nurse Practitioner Family
DX: I63.89 Other cerebral infarction (principal); Z79.01 Long term (current) use of anticoagulants
CPT/HCPCS: 36415; 85610

== ENCOUNTER → 2022-04-26 08:18 | Outpatient (BNVA) | payer MEDICARE, SELFPAY | PROVIDERS: PCP Family Medicine; Referring Provider Family Medicine; Visit Provider Psychiatry & Neurology Neurology | DX: I65.22 Occlusion and stenosis of left carotid artery (principal) | CPT/HCPCS: 99205 ==

== ENCOUNTER → 2022-05-04 14:55 | Outpatient (CLI) | payer MEDICARE, SELFPAY ==
--- NOTE | 2022-05-04 | DI.US_ITS ---
Exam(s) US CAROTID EXAM: US CAROTID CLINICAL HISTORY: LT ICA OCCLUSION, CVA, CEREBRAL INFARCTION, I63.9. TECHNIQUE: Ultrasound carotids performed using grayscale, color-flow, and spectral Doppler imaging. COMPARISON: US CAROTID ULTRASOUND from 04/01/2012 FINDINGS: RIGHT CAROTID ARTERY: Plaque: [id number] calcific plaque is seen in the carotid bulb, proximal external carotid and p roximal internal carotid artery. Velocity elevation: Please see below. LEFT CAROTID ARTERY: Plaque: Calcific plaque seen in the carotid bulb and proximal external carotid artery. Velocity elevation: None. VERTEBRAL ARTERIES: Antegrade flow. Measurements: R Bulb: 51.6 cm/s PS / 12.2 cm/s ED R CCA: 87.4 cm/s PS / 21.7 cm/s ED R ECA: 122.2 cm/s PS / 19.1 cm/s ED R ICA Prox: 153.3 cm/s PS / 39.6 cm/s ED R ICA Mid: 95 cm/s PS / 25.8 cm/s ED R ICA Distal: 102.2 cm/s PS /31 cm/s ED R Vert: 99.4 cm/s PS / 25.8 cm/s ED R SVR: 1.8 R DVR: 1.8 L Bulb: 92.4 cm/s PS / 13.6 cm/s ED L CCA: 49.9 cm/s PS / 8.91 cm/s ED L ECA: 161.6 cm/s PS / 28.7 cm/s ED L ICA Prox: There is again seen occlusion of the left internal carotid artery. L Vert: 95.5 cm/s PS / 22 cm/s ED L SVR:1.8 L DVR:1.6 IMPRESSION: 1. Velocity elevations seen in the proximal right ICA consistent with 50-69 percent proximal right in ternal carotid artery stenosis. 2. Findings again is seen of occlusion of the left internal carotid artery. Criteria for Carotid Stenosis: Normal: ICA PSV <125 cm/s no plaque or intimal thickening is visible. <50% stenosis: ICA PSV <125 cm/s and plaque or intimal thickening is visible. 50-69% stenosis: ICA PSV is 125-250 cm/s and plaque is visible. >70% stenosis to near occlusion: ICA PSV >250 cm/s with visible plaque and luminal narrowing. DATA REPOSITORY:
== END ==
PROVIDERS: PCP Family Medicine; Visit Provider Psychiatry & Neurology Neurology
DX: I63.9 Cerebral infarction, unspecified (principal); I65.23 Occlusion and stenosis of bilateral carotid arteries
CPT/HCPCS: 93880

== ENCOUNTER 2022-05-11 01:18 | Outpatient (CLI) | payer MEDICARE, SELFPAY ==
[2022-05-11 12:34] LABS: INR 1.8 (0.9-1.1); Prothrombin Time 17.2 sec (9.3-11.0)
== END 2022-05-11 01:19 | disposition home or self-care (01) ==
LOC: LOS 01:18
PROVIDERS: Nurse Practitioner Family; PCP Family Medicine; Visit Provider Family Medicine
DX: I65.9 Occlusion and stenosis of unspecified precerebral artery (principal)
CPT/HCPCS: 36415; 85610

== ENCOUNTER 2022-05-22 03:30 | Outpatient (CLI) | payer MEDICARE, SELFPAY | END 2022-05-22 03:31 | disposition home or self-care (01) | LOC: RT 03:30 | PROVIDERS: PCP Family Medicine; Visit Provider Psychiatry & Neurology Neurology | DX: I63.9 Cerebral infarction, unspecified (principal) | CPT/HCPCS: 93246 ==

== ENCOUNTER 2022-05-25 01:21 | Outpatient (CLI) | payer MEDICARE, SELFPAY ==
[2022-05-25 13:32] LABS: INR 2.6 (0.9-1.1); Prothrombin Time 24.6 sec (9.3-11.0)
== END 2022-05-25 01:22 | disposition home or self-care (01) ==
LOC: LOS 01:21
PROVIDERS: Nurse Practitioner Family; PCP Family Medicine; Visit Provider Family Medicine
DX: I63.9 Cerebral infarction, unspecified (principal)
CPT/HCPCS: 36415; 85610

== ENCOUNTER 2022-06-18 14:46 | Outpatient (CLI) | payer MEDICARE, SELFPAY ==
--- NOTE | 2022-06-18 14:54 | W.CARDEVENT ---
Date of service: 06/18/22 Time of Service: 14:55 Cardiac Event Recorder Referring Provider:: Elisa Phillips Indications:: Stroke Cardiac Event Note: This is a 14-day cardiac event monitor. Predominant rhythm was sinus with an average heart rate of 82. Minimum was 64, maximum 138 There were rare premature ventricular contractions There were very rare atrial premature beats there was no atrial fibrillation no high-grade AV block no pauses greater than 3 seconds No patient symptoms were reported 6
== END 2022-06-18 14:47 | disposition home or self-care (01) ==
LOC: CARDOPNVT 14:46
PROVIDERS: PCP Family Medicine; Visit Provider Internal Medicine Cardiovascular Disease
DX: I63.9 Cerebral infarction, unspecified (principal); I49.1 Atrial premature depolarization
CPT/HCPCS: 93248

== ENCOUNTER → 2022-06-25 14:47 | Outpatient (BNVA) | payer MEDICARE, SELFPAY | PROVIDERS: PCP Family Medicine; Referring Provider Family Medicine; Visit Provider Psychiatry & Neurology Neurology | DX: I69.320 Aphasia following cerebral infarction (principal); I69.351 Hemiplegia and hemiparesis following cerebral infarction affecting right dominant side; Z79.82 Long term (current) use of aspirin; Z79.02 Long term (current) use of antithrombotics/antiplatelets; I10 Essential (primary) hypertension; E11.9 Type 2 diabetes mellitus without complications; I65.22 Occlusion and stenosis of left carotid artery | CPT/HCPCS: 99214 ==

== ENCOUNTER 2022-06-26 03:51 | Outpatient (CLI) | payer MEDICARE, SELFPAY ==
[2022-06-26 12:53] LABS: BUN 20 mg/dL (7-18); CREATININE 0.9 mg/dL (0.55-1.02); Calcium 9.3 mg/dL (8.5-10.1); Chloride 106 mmol/L (98-107); Estimated GFR 65.84 (mL/min/1.73m2); Glucose 160 mg/dL (74-106); Potassium 4.4 mmol/L (3.5-5.1); Sodium 142 mmol/L (136-145)
== END 2022-06-26 03:52 | disposition home or self-care (01) ==
LOC: LOS 03:51
PROVIDERS: PCP Family Medicine; Visit Provider Family Medicine
DX: E11.9 Type 2 diabetes mellitus without complications (principal)
CPT/HCPCS: 36415; 80048

== ENCOUNTER 2022-07-11 02:49 | Outpatient (CLI) | payer MEDICARE, SELFPAY ==
[2022-07-11 12:38] LABS: Prothrombin Time 9.8 sec (9.3-11.0)
== END 2022-07-11 02:50 | disposition home or self-care (01) ==
LOC: LOS 02:49
PROVIDERS: PCP Family Medicine; Visit Provider Family Medicine
DX: I63.89 Other cerebral infarction (principal); Z79.01 Long term (current) use of anticoagulants
CPT/HCPCS: 36415; 85610

== ENCOUNTER → 2022-12-31 13:14 | Outpatient (BNVA) | payer MEDICARE, SELFPAY | PROVIDERS: PCP Family Medicine; Referring Provider Family Medicine; Visit Provider Psychiatry & Neurology Neurology | DX: I69.351 Hemiplegia and hemiparesis following cerebral infarction affecting right dominant side (principal); I69.320 Aphasia following cerebral infarction; I69.312 Visuospatial deficit and spatial neglect following cerebral infarction; I65.22 Occlusion and stenosis of left carotid artery; Z79.01 Long term (current) use of anticoagulants | CPT/HCPCS: 99214 ==

== ENCOUNTER 2023-02-11 02:47 | Outpatient (CLI) | payer MEDICARE, SELFPAY ==
--- NOTE | 2023-02-11 08:00 | DI.US_ITS ---
Exam(s) US CAROTID EXAM: US CAROTID CLINICAL HISTORY: R carotid stenosis, I65.21 OCCLUSION/STENOSIS RT CAROTID ARTERY. TECHNIQUE: Ultrasound carotids performed using grayscale, color-flow, and spectral Doppler imaging. COMPARISON: US US CAROTID from 05/04/2022 FINDINGS: RIGHT CAROTID ARTERY: Plaque: [id number] Velocity elevation: Mildly elevated systolic and diastolic velocities in the proximal and mid right i nternal carotid artery. LEFT CAROTID ARTERY: Plaque: Occlusive plaque. Velocity elevation: N/a VERTEBRAL ARTERIES: Antegrade flow. Measurements: R Bulb: 83.4cm/s PS / 25.6cm/s ED R CCA: 89.8cm/s PS / 24.3cm/s ED R ECA: 114.3cm/s PS / 14.5cm/s ED R ICA Prox: 128.9cm/s PS / 37.5cm/s ED R ICA Mid: 150.7cm/s PS / 28.7cm/s ED R ICA Distal: 119.2cm/s PS /30.1cm/s ED R Vert: 37cm/s PS / 7.6cm/s ED R SVR: 1.7 R DVR: 1.2 L Bulb: 58.2cm/s PS / 7.6cm/s ED L CCA: 56.9cm/s PS / 15.4cm/s ED L ECA: 106.1cm/s PS / 11.5cm/s ED L ICA Prox: Occlusion L ICA Mid: Occlusion L ICA Distal: O'clock L Vert: 79.1cm/s PS / 22.9cm/s ED L SVR: 1.9 L DVR: 1 IMPRESSION: Occlusion of the left internal carotid artery is again noted. 50-69 percent stenosis of the proximal and mid right internal carotid artery. Criteria for Carotid Stenosis: Normal: ICA PSV <125 cm/s no plaque or intimal thickening is visible. <50% stenosis: ICA PSV <125 cm/s and plaque or intimal thickening is visible. 50-69% stenosis: ICA PSV is 125-250 cm/s and plaque is visible. >70% stenosis to near occlusion: ICA PSV >250 cm/s with visible plaque and luminal narrowing. DATA REPOSITORY:
== END 2023-02-11 03:07 ==
LOC: DI 02:47
PROVIDERS: PCP Family Medicine; Visit Provider Psychiatry & Neurology Neurology
DX: I65.21 Occlusion and stenosis of right carotid artery (principal)
CPT/HCPCS: 93880

== ENCOUNTER 2023-06-13 04:45 | Outpatient (CLI) | payer MEDICARE, SELFPAY ==
[2023-06-13 12:37] LABS: Anion Gap 6.5 mmol/L (3-11); BUN 14 mg/dL (7-18); CO2 29.5 mmol/L (21.0-32.0); CREATININE 0.8 mg/dL (0.55-1.02); Calcium 9.4 mg/dL (8.5-10.1); Chloride 104 mmol/L (98-107); Estimated GFR 75.37 (mL/min/1.73m2); Glucose 152 mg/dL (74-106); Potassium 4.5 mmol/L (3.5-5.1); Sodium 140 mmol/L (136-145)
[2023-06-13 13:14] LABS: Microalb ug/mg Crea 7.6 ug/mg Cr
== END 2023-06-13 04:46 | disposition home or self-care (01) ==
LOC: LOS 04:45
PROVIDERS: PCP Family Medicine; Visit Provider Family Medicine
DX: E11.9 Type 2 diabetes mellitus without complications
CPT/HCPCS: 36415; 80048; 82043; 82570

== ENCOUNTER → 2023-10-09 01:32 | Outpatient (CLI) | payer MEDICARE, SELFPAY ==
--- NOTE | 2023-10-09 07:45 | DI.US_ITS ---
Exam(s) US CAROTID EXAM: US CAROTID CLINICAL HISTORY: f/u RT carotid stenosis,i65.21,HYPERTENSION. TECHNIQUE: Ultrasound carotids performed using grayscale, color-flow, and spectral Doppler imaging. COMPARISON: US US CAROTID from 05/04/2022 US US CAROTID from 02/11/2023 FINDINGS: RIGHT CAROTID ARTERY: Plaque: Moderate plaque at common carotid bulb and proximal internal carotid artery. LEFT CAROTID ARTERY: Plaque: Heavily calcified plaque at left common carotid bulb. VERTEBRAL ARTERIES: Antegrade flow. Measurements: R Bulb: 69.3cm/s PS / 7.5cm/s ED R CCA: 105cm/s PS / 29.8cm/s ED R ECA: 202.4cm/s PS / 25.4cm/s ED R ICA Prox: 141.6cm/s PS / 31.2cm/s ED R ICA Mid: 145.7cm/s PS / 38.5cm/s ED R ICA Distal: 123.6cm/s PS /31.3cm/s ED R Vert: 38.2cm/s PS / 2.7cm/s ED R SVR: 1.4 R DVR: 1.3 L Bulb: 69.7cm/s PS / 7.7cm/s ED L CCA: 70 PS / 9.7cm/s ED L ECA: 119cm/s PS / 11.3cm/s ED L ICA Prox: 34.3cm/s PS / 19.7cm/s ED L ICA Mid: 20.5cm/s PS / 0cm/s ED L ICA Distal: Flow not detected. L Vert: 60.2cm/s PS / 12.2cm/s ED L SVR: 1 L DVR: 0.8 IMPRESSION: Heavy calcific plaque at the left common carotid bulb. Very little flow detected in the proximal and mid ICA. Occlusion of the distal ICA. calcific plaque at the right common carotid bulb and proximal right internal carotid artery, consiste nt with a 50-69 percent stenosis, similar to prior.. Criteria for Carotid Stenosis: Normal: ICA PSV <125 cm/s no plaque or intimal thickening is visible. <50% stenosis: ICA PSV <125 cm/s and plaque or intimal thickening is visible. 50-69% stenosis: ICA PSV is 125-250 cm/s and plaque is visible. >70% stenosis to near occlusion: ICA PSV >250 cm/s with visible plaque and luminal narrowing. DATA REPOSITORY:
== END ==
PROVIDERS: PCP Family Medicine; Visit Provider Family Medicine
DX: I65.21 Occlusion and stenosis of right carotid artery (principal); I10 Essential (primary) hypertension
CPT/HCPCS: 93880

== ENCOUNTER 2023-10-11 02:30 | Outpatient (CLI) | payer MEDICARE, SELFPAY ==
[2023-10-15 16:34] LABS: Renin Activity, Plasma 0.6 ng/mL/h
== END 2023-10-11 02:31 | disposition home or self-care (01) ==
LOC: LOS 02:30 → LBO 10:17
PROVIDERS: PCP Family Medicine; Visit Provider Family Medicine
DX: I10 Essential (primary) hypertension (principal)
CPT/HCPCS: 36415; 82088; 84244

== ENCOUNTER → 2023-12-31 12:15 | Outpatient (BNVA) | payer MEDICARE, SELFPAY | PROVIDERS: PCP Family Medicine; Visit Provider Psychiatry & Neurology Neurology | DX: I63.9 Cerebral infarction, unspecified (principal); I65.22 Occlusion and stenosis of left carotid artery; I65.21 Occlusion and stenosis of right carotid artery | CPT/HCPCS: 99213 ==

== ENCOUNTER 2024-01-24 00:42 | Outpatient (CLI) | payer MEDICARE, SELFPAY ==
[2024-01-24 10:51] LABS: Hemoglobin A1C 7.1 % (<5.7)
[2024-01-24 10:55] LABS: ALT 24 U/L (14-59); AST 16 U/L (15-37); Albumin 3.6 g/dL (3.4-5.0); Alkaline Phosphatase 100 U/L (46-116); Anion Gap 6.1 mmol/L (3-11); BUN 17 mg/dL (7-18); Bilirubin, Total 0.9 mg/dL (0.2-1.0); CO2 30.9 mmol/L (21.0-32.0); CREATININE 0.9 mg/dL (0.55-1.02); Calcium 9.1 mg/dL (8.5-10.1); Chloride 106 mmol/L (98-107); Estimated GFR 65.44 (mL/min/1.73m2); Glucose 170 mg/dL (74-106); Potassium 4.4 mmol/L (3.5-5.1); Sodium 143 mmol/L (136-145); Total Protein 7.4 g/dL (6.4-8.2)
== END 2024-01-24 00:43 | disposition home or self-care (01) ==
LOC: LOS 00:42
PROVIDERS: PCP Family Medicine; Visit Provider Family Medicine
DX: Z00.00 Encounter for general adult medical examination without abnormal findings (principal)
CPT/HCPCS: 36415; 80053; 83036

== ENCOUNTER 2024-06-05 02:03 | Outpatient (CLI) | payer MEDICARE, SELFPAY ==
[2024-06-05 12:38] LABS: Anion Gap 7.2 mmol/L (3-11); BUN 16 mg/dL (7-18); CO2 29.8 mmol/L (21.0-32.0); CREATININE 0.9 mg/dL (0.55-1.02); Chloride 108 mmol/L (98-107); Estimated GFR 65.03 (mL/min/1.73m2); Glucose 148 mg/dL (74-106); Potassium 4.1 mmol/L (3.5-5.1); Sodium 145 mmol/L (136-145)
[2024-06-05 12:39] LABS: Hemoglobin A1C 6.4 % (<5.7)
[2024-06-05 12:52] LABS: COMMENT (LAB VIEW ONLY) 93.16 mg/dL; Microalb ug/mg Crea 5.5 ug/mg Cr
== END 2024-06-05 02:04 | disposition home or self-care (01) ==
LOC: LOS 02:03
PROVIDERS: PCP Family Medicine; Visit Provider Family Medicine
DX: E08.40 Diabetes mellitus due to underlying condition with diabetic neuropathy, unspecified; Z23 Encounter for immunization; I10 Essential (primary) hypertension
CPT/HCPCS: 36415; 80048; 82043; 82570; 83036

== ENCOUNTER 2024-09-15 01:47 | Outpatient (CLI) | payer MEDICARE, SELFPAY ==
--- NOTE | 2024-09-15 07:30 | DI.US_ITS ---
Exam(s) US CAROTID EXAM: US CAROTID CLINICAL HISTORY: R carotid stenosis,lt carotid occlusion,i65.22,i65.21. TECHNIQUE: Ultrasound carotids performed using grayscale, color-flow, and spectral Doppler imaging. COMPARISON: US US CAROTID from 10/09/2023 FINDINGS: RIGHT CAROTID ARTERY: Plaque: Minimal plaque at the common carotid artery. Calcific plaque at the common carotid bulb and proximal internal carotid artery. Velocity elevation: Elevated systolic and diastolic velocity measurements consistent with a 50-69 per cent stenosis. LEFT CAROTID ARTERY: Plaque: Plaque at the common carotid bulb causing occlusion. Occlusion of proximal through distal internal carotid artery. External carotid artery patent which shows plaque and elevated velocities with visually [address] enosis. VERTEBRAL ARTERIES: Antegrade flow. IMPRESSION: Occlusion of the left internal carotid artery beginning at the origin. 50-69 percent stenosis of the proximal right internal carotid artery. DATA REPOSITORY:
== END 2024-09-15 02:07 ==
LOC: DI 01:47
PROVIDERS: PCP Family Medicine; Visit Provider Psychiatry & Neurology Neurology
DX: I65.22 Occlusion and stenosis of left carotid artery (principal); I65.21 Occlusion and stenosis of right carotid artery
CPT/HCPCS: 93880

== ENCOUNTER 2024-09-16 01:51 | Outpatient (CLI) | payer MEDICARE, SELFPAY ==
[2024-09-16 12:35] LABS: Anion Gap 7.6 mmol/L (3-11); BUN 34 mg/dL (7-18); CO2 31.4 mmol/L (21.0-32.0); CREATININE 1.1 mg/dL (0.55-1.02); Chloride 103 mmol/L (98-107); Estimated GFR 51.11 (mL/min/1.73m2); Glucose 168 mg/dL (74-106); Potassium 3.8 mmol/L (3.5-5.1); Sodium 142 mmol/L (136-145)
== END 2024-09-16 01:52 | disposition home or self-care (01) ==
LOC: LOS 01:51
PROVIDERS: PCP Family Medicine; Referring Provider Family Medicine; Visit Provider Family Medicine
DX: E11.9 Type 2 diabetes mellitus without complications (principal); I10 Essential (primary) hypertension
CPT/HCPCS: 36415; 80048

== ENCOUNTER → 2024-12-29 12:37 | Outpatient (BNVA) | payer MEDICARE, SELFPAY | PROVIDERS: PCP Family Medicine; Visit Provider Psychiatry & Neurology Neurology | DX: I63.9 Cerebral infarction, unspecified (principal); I65.22 Occlusion and stenosis of left carotid artery; I65.21 Occlusion and stenosis of right carotid artery; I10 Essential (primary) hypertension; E11.9 Type 2 diabetes mellitus without complications | CPT/HCPCS: 99214 ==

== ENCOUNTER 2025-03-16 03:06 | Outpatient (CLI) | payer MEDICARE, SELFPAY ==
[2025-03-16 12:40] LABS: Calculated LDL 63 mg/dL (<100); Cholesterol 135 mg/dL (<200); HDL Cholesterol 49 mg/dL (>or=50); Triglyceride 119 mg/dL (<150)
[2025-03-16 13:37] LABS: Hemoglobin A1C 6.3 % (<5.7)
== END 2025-03-16 03:07 | disposition home or self-care (01) ==
PROVIDERS: PCP Family Medicine; Visit Provider Family Medicine
DX: E08.40 Diabetes mellitus due to underlying condition with diabetic neuropathy, unspecified (principal)
CPT/HCPCS: 36415; 80061; 83036

== ENCOUNTER 2025-07-17 11:55 | Outpatient (REF) | payer MEDICARE, SELFPAY ==
[2025-07-17 12:47] LABS: Glucose Negative (Negative)
== END 2025-07-17 11:56 | disposition home or self-care (01) ==
LOC: LBN 11:55
PROVIDERS: PCP Nurse Practitioner Family; Visit Provider Nurse Practitioner Family
DX: R41.0 Disorientation, unspecified (principal)
CPT/HCPCS: 81003; 87086

== ENCOUNTER 2025-08-04 12:38 | Inpatient (IN) | payer MEDICARE, SELFPAY ==
[2025-08-04] VITALS (66 sets, daily range): BP systolic 96–142; BP diastolic 40–93; PULSE 65–87; RESP 15–29; TEMP 36.8–37; O2SAT 92–99
--- NOTE | 2025-08-04 | DI.CT_ITS ---
Exam(s) CT CHEST/ABD/PEL W CT THORACIC LUMBAR SPINE REC EXAM: CT CHEST/ABD/PEL W CLINICAL HISTORY: right hip deformed, ecchymosis flank, fall. TECHNIQUE: Imaging Protocol: Axial computed tomography images with coronal and sagittal reformatted images were created and reviewed. Computer aided detection (CAD) was utilized. CONTRAST MATERIAL: Intravenous: Omnipaque 350 Contrast volume:75 ml Oral: no COMPARISON: CT PELVLIC/LOWER ABD W/WO CONT(P) from 05/15/2017 FINDINGS: CHEST: Pulmonary parenchyma: Limited evaluation due to expiratory changes and respiratory motion. No evidence of consolidation. No consolidation. No dominant measurable mass. Pleura: No effusion or pneumothorax. Mediastinum: Within normal limits. Markedly enlarged multinodular goiter. Pulmonary arteries: No visible emboli. Cardiovascular: Heart is mildly enlarged. There are coronary artery calcifications. No pericardial effusion. Thoracic aorta non-dilated. Bones: Unremarkable for age. No lytic or blastic lesions. No rib fractures or thoracic spine compression fractures. Soft tissues: Unremarkable. ABDOMEN and PELVIS: Liver: Evaluation mildly limited due to streak artifact secondary to patient arm positioning. Normal density. No suspicious mass. Gallbladder and biliary tract: Single calcified gallstone. No evidence of wall thickening. No biliary dilatation. Pancreas: Normal density, no abnormal calcifications or inflammatory process. Spleen: Normal. Kidneys: Normal size, contour and axis. No radiodense stones. No obstructive uropathy. No evidence of renal injury. There is an exophytic lobulated and enhancing mass from the posterior medial aspect of the right kidney measuring 2 by 2.5 x 3.8 cm. Adrenal glands: No masses seen. Aorta: Abdominal portion non-dilated. Lymph nodes: Within normal limits. Soft tissues: Small fat containing left inguinal hernia. Small fat containing umbilical hernia. Bladder: Unremarkable. Bowel: No obstruction or bowel wall thickening. Peritoneal cavity: No ascites. No focal collection. No mesenteric inflammatory response. No free air. Bones: Comminuted intertrochanteric fracture of the right femur. Mild amount of surrounding hematoma. No additional pelvic fractures. No evidence of spine fracture. Reproductive organs: Calcified uterine fibroid. IMPRESSION: No acute abnormality in the chest. Comminuted intertrochanteric fracture of the right femur. No additional posttraumatic findings. Suspicious appearing mass of the right kidney. Findings called to ER provider. RADIATION DOSE DELIVERED: Total DLP DATA REPOSITORY: All CT scans at this facility are submitted to the National Radiology Data Registry (NRDR) Dose Index Registry (DIR) with the [employer] (A[employer]). RADIATION OPTIMIZATION: All CT scans at this facility use at least one of these dose optimization techniques: automated exposure control; mA and/or kV adjustment per patient size (includes targeted exams where dose is matched to clinical indication); or iterative reconstruction.
--- NOTE | 2025-08-04 12:45 | DI.RAD_ITS ---
Exam(s) XR PELVIS AP XR FEMUR RT EXAM: XR PELVIS AP CLINICAL HISTORY: fall, hip injury. TECHNIQUE: 2D digital imaging was performed. Single AP view of the pelvis. AP and lateral views of the right femur. COMPARISON: CR XR FEMUR RT from 08/04/2025 FINDINGS: BONES: There is an intertrochanteric fracture of the right femur. The greater and lesser trochanters are fractured as a separate fragments. There is varus and posterior angulation. No additional fractures are identified elsewhere in the pelvis or in the right femur. No bony destructive lesion is seen. JOINTS: No dislocation present. No joint space narrowing is present. The SI joints and pubic symphysis appear intact. SOFT TISSUE: Calcified uterine fibroid. Vascular calcifications. IMPRESSION: Comminuted intertrochanteric fracture of the right femur. DATA REPOSITORY: RADIATION DOSE DELIVERED:
--- NOTE | 2025-08-04 12:45 | RT.EKG_ITS ---
APPROVED REPORT Exam: Resting ECG Reason for Exam: right hip injury, fall Patient Location: E HR:68 bpm ECG Measurements Heart Rate 68 AXIS NH 219 P 46 QRSd 72 QRS 0 QT 408 T 30 QTc 436 Conclusion Sinus rhythm...normal P axis, V-rate 60- 99 Borderline prolonged NH interval...NH >212, V-rate 50- 90 Low voltage, precordial leads...precordial leads <1.0mV Physician: No STEMI
--- NOTE | 2025-08-04 12:45 | DI.CT_ITS ---
Exam(s) CT HEAD CERVICAL SPINE WO EXAM: CT HEAD CERVICAL SPINE WO CLINICAL HISTORY: fall, [place]. TECHNIQUE: Imaging Protocol: Axial computed tomography images with coronal and sagittal reformatted images were created and reviewed COMPARISON: CT HEAD WITHOUT CONTRAST from 01/12/2012 US CAROTID ULTRASOUND from 04/01/2012 CT HEAD WITHOUT STROKE PROTOCOL from 07/09/2012 US US CAROTID from 09/15/[address] CHEST/ABD/PEL W from 08/04/2025 FINDINGS: Head CT Ventricles and Extra axial spaces: Normal in size and morphology for the patient's age. Hemorrhage: There is a question of a small focus of hemorrhage adjacent to the superior aspect of the left lateral ventricle, in the left frontal lobe versus calcification in the region of an old infarct. Cerebral parenchyma: No evidence of mass or acute infarct. There are large areas of infarct in the left for parietal and occipital lobes. Smaller areas of infarct are seen in the left frontal lobe. There is significant underlying atrophy. Midline shift: None. Brainstem/Cerebellum: Normal. Calvarium: Normal. Visualized Paranasal sinuses/Mastoids: Clear. Soft tissues: Unremarkable. Cervical Spine CT BONES: Vertebral body heights are maintained. Alignment is normal. There is no evidence of acute fracture. Degenerative disc changes and facet degenerative changes are seen . SOFT TISSUES: No paraspinal hematoma. The airway appears intact. No pneumothorax is seen at the lung apices. There are large nodules in both lobes of the thyroid, right greater than left. IMPRESSION: Head CT: Large areas of old infarct noted in the left frontal, parietal occipital lobes. Small area of increased in the left frontal lobe adjacent to the left lateral ventricle which could represent a small focus of hemorrhage versus calcification. No evidence of subdural hematoma or skull fracture. C-spine CT: Degenerative changes, no acute abnormality. Findings called to ER provider. RADIATION DOSE DELIVERED: Total DLP DATA REPOSITORY: All CT scans at this facility are submitted to the National Radiology Data Registry (NRDR) Dose Index Registry (DIR) with the [employer] (ACR). RADIATION OPTIMIZATION: All CT scans at this facility use at least one of these dose optimization techniques: automated exposure control; mA and/or kV adjustment per patient size (includes targeted exams where dose is matched to clinical indication); or iterative reconstruction.
[2025-08-04 13:28] LABS: Abs Immature Grans 0.03 10^3/uL (0.0-0.06); HCT 31.3 % (36.0-46.0); HGB 10.6 g/dL (11.2-15.7); Immature Grans % 0.3 %; MCH 31.5 pg (27.0-33.0); MCHC 33.9 % (32.0-36.0); MCV 93 fL (80-95); MPV 10.4 fL (8.0-11.0); Platelet Count 216 10^3/uL (130-400); RBC 3.37 10^6/uL (3.93-5.22); RDW 12.3 % (11.7-14.6); RDW-SD 41.8 fL; WBC 8.97 10^3/uL (4.4-10.8)
[2025-08-04 13:53] LABS: Lipase 35 U/L (<53)
[2025-08-04] MEDS: fentaNYL 100 MCG/2 ML VIAL 50 MCG IVP ×4 (13:53→23:20)
[2025-08-04 13:58] LABS: ALT 18 U/L (10-49); AST 18 U/L (<34); Albumin 4.3 g/dL (3.2-5.0); Alkaline Phosphatase 83 U/L (46-116); Anion Gap 9.2 mmol/L (3-11); BUN 42 mg/dL (9-23); Bilirubin, Total 0.8 mg/dL (0.2-1.2); CO2 28.8 mmol/L (20.0-31.0); Calcium 9.3 mg/dL (8.3-10.6); Chloride 100 mmol/L (98-107); Glucose 172 mg/dL (74-106); Potassium 4.1 mmol/L (3.5-5.1); Sodium 138 mmol/L (136-145); Total Protein 7.2 g/dL (5.7-8.2)
--- NOTE | 2025-08-04 15:08 | W.ORTHOCONSU ---
Date of service: 08/05/25 Time of Service: 09:51 Assessment and Plan Assessment and plan (1) Closed intertrochanteric fracture of right hip: Status: Acute Assessment and plan: 80 year old female with Right hip intertrochanteric fracture Reviewed with ER. Recommend EMD SPECIAL EDUCATION TEACHER evaluation. Medical admission & optimization for surgery tomorrow: Right hip intramedullary nailing. Hold clopidogrel if possible. NPO post midnight. Full consult to follow... Brief review and focused orthopedic involvement of medically high risk and complex patient. Unfortunately patient is a very vague and poor historian given her short-term memory loss and cognition impairment. Please see ER note and hospitalist admission for full HPI. In short patient had a mechanical fall at home yesterday injuring her right hip. The patient tells me she lives at home with her and cat and typically ambulates without assistance. However, the chart also states that she has been decompensating and was scheduled to move into [facility] and rehab yesterday.Gait disturbance first and right sided hemiparesis, unclear baseline, status post multiple CVA in 2011. Patient was in the process of moving to [facility] rehab facility yesterday for her continuing decline, patient is unaware of this. It should be noted that initial head CT was concerning for possible intracranial bleed versus calcification. [facility] neurosurgery was consulted, recommended observation and repeat CT in 6 hours. Did not have the ability to accept the patient in transfer. Repeat CT revealed stable small focus of high attenuation. Patient resting comfortably in hospital bed. No obvious head trauma. Awake, alert, oriented x 2. No acute distress. Demonstrates the ability to move both upper extremities. Visual inspection reveals a small resolving area of ecchymosis about the anterior right shoulder. Nontender. Right leg is shortened and externally rotated. Demonstrates the ability to wiggle her toes and ankle pumps. Skin is intact about the hip. No obvious ecchymosis. Sensation intact throughout. 1+ pedal pulse and normal capillary refill. Left lower extremity, demonstrates wiggling of toes and ankle pump. Limited range of motion of the knee. Any movement of the left leg exacerbates her right hip pain. There is nontender ecchymosis about the third toe. No deformity. Reviewed heightened risk, high risk status at baseline given multiple CVAs, deconditioning, and poor ambulatory status prior to this injury. Even higher risk due to the current CT head abnormality, but it has been stable. Unfortunately, neither [facility] nor [facility] can accept the patient for transfer. It is probably best to still repair/fix her hip in order to minimize morbidity and facilitate care moving forward. There is also the unfortunate incidental finding of a suspicious kidney mass, which the medical team will address at the appropriate time. Decision to proceed with surgery today Right hip intramedullary nail I attempted to discuss the risk, benefits, and tenderness with the patient, but I am not clear her level of understanding. All her questions were answered. Her is not available here in the hospital or over the phone. He is apparently not doing well himself and is currently admitted to the [facility] and rehab. Reportedly, he has been contacted and knows that his is admitted here to the hospital with hip fracture with plans for surgery today. There was no one else to contact or available per the patient. Informed consent was obtained with the patient as best possible as well as the usual counseling regarding pain, expected postoperative course, recovery timeline, which is expected to be more challenging difficult and guarded prognosis in this case. Remains heightened risk. Right shoulder possible old bruising but good pain less motion and CT scan includes the shoulder without injury. Left toe with painless ecchymosis, will consider postoperative left foot x-rays to fully evaluate. Lastly, patient has no SCDs or teds on her and is heightened risk for Blose bleeding and clotting problems. We will place these in the OR and she should have usual mechanical DVT prophylaxis while inpatient. Chemical DVT prophylaxis per primary medical team likely based on discussion on CT head results with neurosurgery at [facility]. Patient is breathing comfortably on room air. No coughs or wheezes. 2+ right radial pulse. Regular rate and rhythm. After multiple at times and hold, we were able to finally review this patient's injury treatment plan with the surgery and heightened risk with her who is at the rehab facility across the street from this hospital. He voices very good understanding, understands her heightened risk, and agrees with our plan to proceed with the surgery to facilitate her recovery with potential mobility and palliative for pain discomfort. Verbal consent was obtained well with Alan and myself and other witnesses. PFSH All Active Problems (Updated 08/04/25 @ 23:57 by Zhang Alvarez MD) Benign essential hypertension (Acute) Abnormal head CT (Acute) Closed comminuted intertrochanteric fracture of right femur (Acute) Abnormal CT scan, kidney (Acute) Fall (Acute) Intracranial bleed (Acute) Trochanteric fracture of right femur (Acute) Closed intertrochanteric fracture of right hip (Acute 08/04/25) Short-term memory loss (Chronic) Due to stroke in 2011. They feel it is stable. 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 to thrombus L ICA (R)hemiparesis,expressive aphasia/(R) visual field cut/impaired mobility : TIA Chronic anticoagulation (03/22/14) CVA + TIA ,goal inr 2-3; changed to plavix 05/2022 Surgical History Status post fracture of left tibia Family History Mother , 90's Heart disease Father , 90's No problems noted. Sister , 70's Heart disease Sister , 60's Cancer Social History (Updated 03/17/25 @ 10:13 by Ana M Feliciano MD) Smoking/Tobacco Use Status: Former Tobacco Use tobacco type: cigarettes Quit Date: 08/26/11 Tobacco: How many years used: 40 Second Hand Exposure: Yes Smoking risk assessment performed?: Yes Alcohol Intake: current Alcohol Intake frequency: holidays/special occasions only Alcohol type: wine and hard liquor Drug use: Never Substance use type: does not use Caregiver/Support person: Yes Household members: spouse Housing: house Number of Children: 0 Communication Needs: None Education Level: other Do you need help understanding health information?: Rarely Pets and animals: Yes Pets and animals: cat(s) Sexually active: No Do you think of yourself as: straight/heterosexual Current gender identity: female What is your relationship status?: How often do you talk on the phone with friends or family?: once per week How often do you get together with friends or relatives?: decline to answer How often do you attend alevism or temple services?: decline to answer Do you belong to any clubs or organized social groups?: no Panel score (0-1 are the most socially isolated patients): 1 Rayna/Caodaism: No preference Seatbelt use: always Helmet use: No Drive intox or ride w/intox hearse driver: No Results Last Vital Signs Temp 98.6 F 08/04/25 12:38 Pulse 68 08/04/25 14:10 Resp 16 08/04/25 14:10 BP 100/83 08/04/25 14:01 Pulse Ox 95 08/04/25 13:50 Labs 08/05/25 06:17 08/05/25 06:17 Labs: Laboratory Results - last 24 hr 08/04/25 13:20 WBC 8.97 RBC 3.37 L Hgb 10.6 L Hct 31.3 L MCV 93 MCH 31.5 MCHC 33.9 RDW 12.3 Plt Count 216 MPV 10.4 Immature Gran % 0.3 Neutrophils % 76.2 Lymphocytes % 16.8 Monocytes % 6.0 Eosinophils % 0.3 Basophils % 0.4 Nucleated RBC % 0.0 Absolute Neutrophils 6.82 H Absolute Lymphocytes 1.51 Absolute Monocytes 0.54 Absolute Eosinophils 0.03 Absolute Basophils 0.04 Sodium 138 Potassium 4.1 Chloride 100 Carbon Dioxide 28.8 Anion Gap 9.2 BUN 42 H Creatinine 1.09 H Est GFR (CKD-EPI 2020) 48.25 Glucose 172 H Calcium 9.3 Total Bilirubin 0.8 AST 18 ALT 18 Alkaline Phosphatase 83 Total Protein 7.2 Albumin 4.3 Lipase 35
[2025-08-04] MEDS: Normal Saline Flush 10 ML SYR IVP (15:12)
[2025-08-04] MEDS: Omnipaque 350 MG/ML 100 ML BTL IJ (15:12)
[2025-08-04] MEDS: Normal Saline - Diluent 50 ML VIAL IJ (15:12)
--- NOTE | 2025-08-04 15:54 | W.ED.GENAD ---
Discharge Plan Disposition Patient Disposition: Admit to [facility] Condition: Stable Discharge Details Clinical Impression: Trochanteric fracture of right femur, Intracranial bleed, Fall Admit Date/Time: 08/04/25 18:43 Admit Provider: Zhang Alvarez Attending Provider: Zhang Alvarez Primary Care Provider: Marleen Boyle ED Provider: Maria Alejandra Chino Discharge Data Discharge Date/Time-TO BE ENTERED AT DEPARTURE: 08/04/25 20:12 HPI <LEISA Banda - Last Filed: 08/05/25 19:56> General Date/Time Provider Initiated Documentation: 08/04/25 12:43. HPI Narrative: This 80-year-old female with complex medical history with recurrent CVA in 2011 with right-sided hemiparesis, hypertension, hyperlipidemia, on clopidogrel presents after a mechanical fall at home. Patient states she was walking too quickly and lost her balance, falling on right hip. She did not lose consciousness but that states she hit her head and her right hip. She denies any additional injuries. Patient states she has some baseline short-term memory loss secondary to recurrent CVA. She is currently living independently as her is hospitalized but does have caregivers and was set to move to [place] rehab today. She denies any headache nausea or vomiting. States the event occurred just prior to arrival. She denies any strength or sensation changes to her extremities. Related Data Home Medications ?Medication ?Instructions ?Recorded ?Confirmed cholecalciferol (vitamin D3) 50 2,000 unit PO DAILY #90 tab-caps 09/04/16 08/04/25 mcg (2,000 unit) capsule (Vitamin D3) clopidogrel 75 mg tablet 75 mg PO DAILY #90 tabs 12/29/24 08/04/25 hydrochlorothiazide 25 mg tablet 25 mg PO DAILY #90 tabs 05/04/25 08/04/25 lisinopril 40 mg tablet (Zestril) 40 mg PO DAILY #90 tabs 05/04/25 08/04/25 metoprolol succinate 100 mg 100 mg PO DAILY #90 tabs 06/07/25 08/04/25 tablet,extended release 24 hr simvastatin 80 mg tablet 80 mg PO QPM 08/04/25 08/04/25 Previous Rx's ?Medication ?Instructions ?Recorded clopidogrel 75 mg tablet 75 mg PO DAILY #90 tabs 12/29/24 hydrochlorothiazide 25 mg tablet 25 mg PO DAILY #90 tabs 05/04/25 lisinopril 40 mg tablet (Zestril) 40 mg PO DAILY #90 tabs 05/04/25 metoprolol succinate 100 mg 100 mg PO DAILY #90 tabs 06/07/25 tablet,extended release 24 hr Allergies Allergy/AdvReac Type Severity Reaction Status Date / Time spider venom Allergy Intermediate Swelling Verified 08/04/25 12:42 General Stated Complaint: Orthopedic RAHEL: 3 Exam <LEISA Banda - Last Filed: 08/05/25 19:56> Narrative Exam Narrative: 80-year-old female fully alert and oriented x 2, no visible head sign head trauma pupils equal round reactive to light and accommodation no cervical spine tenderness, right hip with abduction and internal rotation, neurovascularly intact with Doppler, no tenderness to abdomen but ecchymosis noted on right flank. Lungs clear to auscultation cardiac rate rhythm regular no evidence of trauma noted to left lower extremity or left upper extremity. GCS 15, right-sided hemiparesis consistent with prior stroke. Female Course <LEISA Banda - Last Filed: 08/05/25 19:56> Vital Signs Vital signs: Vital Signs Temperature 37.0 C 08/04/25 12:38 Pulse 72 08/04/25 12:38 Respiratory Rate 15 08/04/25 12:38 Blood Pressure 142/43 H 08/04/25 12:38 Pulse Oximetry 97 08/04/25 12:38 Temperature 37.0 C 08/04/25 12:38 Temperature Source Oral 08/04/25 12:38 Pulse 68 08/04/25 14:10 Pulse 68 08/04/25 14:10 Respiratory Rate 16 08/04/25 14:10 Blood Pressure 100/83 08/04/25 14:01 Blood Pressure Mean 86 08/04/25 14:01 Blood Pressure Position Supine 08/04/25 12:38 Pulse Oximetry 95 08/04/25 13:50 Oxygen Delivery Method Room Air 08/04/25 12:38 Oxygen Flow Rate 0 08/04/25 12:38 Pain Level 7 08/04/25 13:53 Lab/Test Results Lab/Test Results: Laboratory Tests Range/Units 08/04/25 13:20 WBC (4.4-10.8) 10^3/uL 8.97 RBC (3.93-5.22) 10^6/uL 3.37 L Hgb (11.2-15.7) g/dL 10.6 L Hct (36.0-46.0) % 31.3 L MCV (80-95) fL 93 MCH (27.0-33.0) pg 31.5 MCHC (32.0-36.0) % 33.9 RDW (11.7-14.6) % 12.3 Plt Count (130-400) 10^3/uL 216 MPV (8.0-11.0) fL 10.4 Immature Gran % % 0.3 Neutrophils % % 76.2 Lymphocytes % % 16.8 Monocytes % % 6.0 Eosinophils % % 0.3 Basophils % % 0.4 Nucleated RBC % (0.0-0.3) % 0.0 Absolute Neutrophils (1.2-6.7) 10^3/uL 6.82 H Absolute Lymphocytes (1.2-3.4) 10^3/uL 1.51 Absolute Monocytes (0.1-0.8) 10^3/uL 0.54 Absolute Eosinophils (0.0-0.7) 10^3/uL 0.03 Absolute Basophils (0.0-0.2) 10^3/uL 0.04 Sodium (136-145) mmol/L 138 Potassium (3.5-5.1) mmol/L 4.1 Chloride (98-107) mmol/L 100 Carbon Dioxide (20.0-31.0) mmol/L 28.8 Anion Gap (3-11) mmol/L 9.2 BUN (9-23) mg/dL 42 H Creatinine (0.55-1.02) mg/dL 1.09 H Est GFR (CKD-EPI 2020) (mL/min/1.73m2) 48.25 Glucose (74-106) mg/dL 172 H Calcium (8.3-10.6) mg/dL 9.3 Total Bilirubin (0.2-1.2) mg/dL 0.8 AST (<34) U/L 18 ALT (10-49) U/L 18 Alkaline Phosphatase (46-116) U/L 83 Total Protein (5.7-8.2) g/dL 7.2 Albumin (3.2-5.0) g/dL 4.3 Lipase (<53) U/L 35 Medical Decision Making <LEISA Banda - Last Filed: 08/05/25 19:56> Results: CT head and cervical spine shows possible small focus of hemorrhage in the superior aspect of the left lateral ventricle, this was discussed with our radiologist, Dr. Cote, CT chest abdomen pelvis does not show acute pathology per radiologist, CBC, CMP to be baseline for patient although she does have a mild decrease in hemoglobin hematocrit her last was in 2016 so we do not have reliable comparison x-ray of right hip shows intertrochanteric fracture Assessment and plan: Patient presenting status post fall with an intertrochanteric fracture on the right side per radiology interpretation my review neurological status has remained intact throughout encounter, pending urinalysis, Elias catheter will be placed. Patient mentation intact, CT head shows possible area of hemorrhage in the lateral ventricle overlying the area of stroke, will consult [facility], blood pressure 120/80 head of bed at 30 degrees, seizure pads placed. I did discuss the case briefly with Dr. Neff, orthopedics he is willing to perform surgery here, this is pending CT scans. I also spoke with our anesthesiologist, Dl Ugalde and her preference is that we transfer patient secondary to high risk of recurrent stroke and history of hemiparesis. I have a call out to [facility] to see if they are able to accept this patient both for a possible intracranial hemorrhage and right hip fracture. She wishes to be full CODE STATUS at this time. She has received 100 mcg of fentanyl 50 from EMS and 50 mcg at our facility. She is resting comfortably in room at time of reassessment. Care be transitioned to Maria Alejandra Chino pending [facility] trauma surgery consultation. Quality:SDOH Health Related Social Needs: Health related social needs risk of homeless transpo insecurity material hardship daily activities Health related social needs details Pt will need assistance with ADLs due to recent fracture from a fall prompting this admission <Maria Alejandra Chino NP - Last Filed: 08/04/25 19:59> Medical Records Medical records narrative: 1620: S[place]: Care assumed from provider (LEISA Banda) Please see their initial HPI, PE, and documentation. Discussed patient details and case and pending workup and disposition. Patient is hemodynamically stable, and alert and oriented x 2. Patient was signed out to me pending a [facility] trauma consult for a mechanical fall prior to arrival she does have a right intertrochanteric fracture and a possible intracranial hemorrhage. She does have a history of recurrent strokes and hemiparesis. Currently blood pressure is 121/65 heart rate 78 O2 sat is 96% on room air. 1644: Spoke with [facility] transfer center they do not have capacity at this time to accomidate a transfer of the patient, I did still request to speak with Neurosurgery regarding CT head to verify that this is in fact a intracranial bleed versus calcification. Will contact [facility]. 1659: Spoke with Dr. Mike with [facility] Neuro surgery who was able to view the images, he will call me back and reccommends interval imaging if anything. 1703: Spoke with [facility] transfer center regarding patient, they also are at capacity. Awaiting call back from Neuro surgery. 1740: Spoke again with Dr. Mike with Neurosurgery, recommends interval CT in 6 hours to determine stability. Also hold plavix until follow up in their clinic, would also like a call after interval imaging. Patient reevaluation she is resting comfortably in the bed has no complaints of pain at this time. I did discuss the plan of care she verbalizes understanding. Vital signs are stable. 1805: Hospitalist paged. 1840: Spoke with Dr. Alvarez with hospitalist team, she agrees to accept patient for admission. This text was generated using [employer] dictation system, please disregard any oddities of phrase or misspellings. Lab Data Lab results reviewed: Yes I reviewed the patient's lab results. Labs: Laboratory Tests Range/Units 08/04/25 13:20 WBC (4.4-10.8) 10^3/uL 8.97 RBC (3.93-5.22) 10^6/uL 3.37 L Hgb (11.2-15.7) g/dL 10.6 L Hct (36.0-46.0) % 31.3 L MCV (80-95) fL 93 MCH (27.0-33.0) pg 31.5 MCHC (32.0-36.0) % 33.9 RDW (11.7-14.6) % 12.3 Plt Count (130-400) 10^3/uL 216 MPV (8.0-11.0) fL 10.4 Immature Gran % % 0.3 Neutrophils % % 76.2 Lymphocytes % % 16.8 Monocytes % % 6.0 Eosinophils % % 0.3 Basophils % % 0.4 Nucleated RBC % (0.0-0.3) % 0.0 Absolute Neutrophils (1.2-6.7) 10^3/uL 6.82 H Absolute Lymphocytes (1.2-3.4) 10^3/uL 1.51 Absolute Monocytes (0.1-0.8) 10^3/uL 0.54 Absolute Eosinophils (0.0-0.7) 10^3/uL 0.03 Absolute Basophils (0.0-0.2) 10^3/uL 0.04 Sodium (136-145) mmol/L 138 Potassium (3.5-5.1) mmol/L 4.1 Chloride (98-107) mmol/L 100 Carbon Dioxide (20.0-31.0) mmol/L 28.8 Anion Gap (3-11) mmol/L 9.2 BUN (9-23) mg/dL 42 H Creatinine (0.55-1.02) mg/dL 1.09 H Est GFR (CKD-EPI 2020) (mL/min/1.73m2) 48.25 Glucose (74-106) mg/dL 172 H Calcium (8.3-10.6) mg/dL 9.3 Total Bilirubin (0.2-1.2) mg/dL 0.8 AST (<34) U/L 18 ALT (10-49) U/L 18 Alkaline Phosphatase (46-116) U/L 83 Total Protein (5.7-8.2) g/dL 7.2 Albumin (3.2-5.0) g/dL 4.3 Lipase (<53) U/L 35 PFSH <LEISA Banda - Last Filed: 08/05/25 19:56> All Active Problems (Updated 08/04/25 @ 23:57 by Zhang Alvarez MD) Benign essential hypertension (Acute) Abnormal head CT (Acute) Closed comminuted intertrochanteric fracture of right femur (Acute) Abnormal CT scan, kidney (Acute) Fall (Acute) Intracranial bleed (Acute) Trochanteric fracture of right femur (Acute) Closed intertrochanteric fracture of right hip (Acute 08/04/25) Short-term memory loss (Chronic) Due to stroke in 2011. They feel it is stable. 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 to thrombus L ICA (R)hemiparesis,expressive aphasia/(R) visual field cut/impaired mobility : TIA Chronic anticoagulation (03/22/14) CVA + TIA ,goal inr 2-3; changed to plavix 05/2022 Surgical History Status post fracture of left tibia Family History Mother , 90's Heart disease Father , 90's No problems noted. Sister , 70's Heart disease Sister , 60's Cancer Social History (Updated 03/17/25 @ 10:13 by Ana M Feliciano MD) Smoking/Tobacco Use Status: Former Tobacco Use tobacco type: cigarettes Quit Date: 08/26/11 Tobacco: How many years used: 40 Second Hand Exposure: Yes Smoking risk assessment performed?: Yes Alcohol Intake: current Alcohol Intake frequency: holidays/special occasions only Alcohol type: wine and hard liquor Drug use: Never Substance use type: does not use Caregiver/Support person: Yes Household members: spouse Housing: house Number of Children: 0 Communication Needs: None Education Level: other Do you need help understanding health information?: Rarely Pets and animals: Yes Pets and animals: cat(s) Sexually active: No Do you think of yourself as: straight/heterosexual Current gender identity: female What is your relationship status?: How often do you talk on the phone with friends or family?: once per week How often do you get together with friends or relatives?: decline to answer How often do you attend latter-day or denominational services?: decline to answer Do you belong to any clubs or organized social groups?: no Panel score (0-1 are the most socially isolated patients): 1 Rayna/Yazidi: No preference Seatbelt use: always Helmet use: No Drive intox or ride w/intox driver manager: No
[2025-08-04] MEDS: Normal Saline 1,000 ML 200 ML IV (16:58)
[2025-08-04 17:00] LABS: Glucose Negative (Negative)
[2025-08-04 17:11] LABS: C & S Indicated? No; RBC 0-2 HPF (0-2); WBC Negative HPF (0-5)
--- NOTE | 2025-08-04 18:57 | W.PM.HP.N ---
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 to advise on any intraoperative concerns Neuro checks q4h (2) Closed comminuted intertrochanteric fracture of right femur: Status: Acute Assessment and plan: Noted on CT Orthopedic surgery consulted, likely to OR Aug 05 As above, 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 asks for neurosurgery to advise on any intraoperative concerns Morning PT/INR, H&H, BMP (3) Abnormal CT scan, kidney: Status: Acute Assessment and plan: Incidental CT finding: There is an exophytic lobulated and enhancing mass from the posterior medial aspect of the right kidney measuring 2 by 2.5 x 3.8 cm Not discussed with patient on admission due to her confusion (4) Hx of ischemic left MCA stroke: Assessment and plan: History of multiple CVAs Residual right hemiparesis Hold clopidogrel for surgery (5) Diabetes mellitus due to underlying condition, controlled, with diabetic neuropathy, without long-term current use of insulin: Status: Acute Assessment and plan: Last known A1C 6.3 in February 2025 Not on any meds at this time (6) Benign essential hypertension: Status: Acute Assessment and plan: Normotensive on admission Discussed with 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 ADJUDICATOR, give morning metoprolol succinate Hold home HCTZ, lisinopril Discharge Planning Discharge Planning: Could be ready for PT eval late Aug 05, likely to [facility] (as had been planned for Aug 04 regardless), may be ready to go Aug 06 pending recovery from surgery. History of Present Illness History of Present Illness Chief Complaint: mechanical fall Narrative: Viry Ward is an 80 year old woman presenting August 04 after falling while walking. She lost her balance during a direction change and fell, hitting her head and right hip. She reported that she did not lose consciousness; patient has baseline cognitive deficit and history of recurrent CVA with right hemiparesis. Patient reports severe pain in the right hip. Patient had been feeling well prior to the incident. Patient had been scheduled to be admitted at [facility] on August 04, where her (her primary industrial safety and health specialist) currently resides. No chest pain, no shortness of breath, no abdominal pain, no N/V/D. In the ED, vitals were unremarkable. EKG showed no occlusion. CT head showed attenuation at left frontal lobe concerning for bleed; [facility] neurosurgery was consulted and advised repeat CT and re-consult. XR femur/pelvis showed comminuted intertrochanteric fracture of the right femur. Orthopedic surgery was consulted and will likely take patient to the OR pending neurosurgery followup. CT chest/abdomen/pelvis noted right kidney mass. Labs showed mild anemia, mild BRENDON with elevated BUN, mildly elevated glucose. She was given fentanyl and IV fluids. PMH includes multiple CVAs with residual right hemiparesis, cognitive decline, HTN, DM on orals, carotid stenosis PFSH All Active Problems (Updated 08/04/25 @ 23:57 by Zhang Alvarez MD) Benign essential hypertension (Acute) Abnormal head CT (Acute) Closed comminuted intertrochanteric fracture of right femur (Acute) Abnormal CT scan, kidney (Acute) Fall (Acute) Intracranial bleed (Acute) Trochanteric fracture of right femur (Acute) Closed intertrochanteric fracture of right hip (Acute 08/04/25) Short-term memory loss (Chronic) Due to stroke in 2011. They feel it is stable. 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 to thrombus L ICA (R)hemiparesis,expressive aphasia/(R) visual field cut/impaired mobility : TIA Chronic anticoagulation (03/22/14) CVA + TIA ,goal inr 2-3; changed to plavix 05/2022 Surgical History Status post fracture of left tibia Family History Mother , 90's Heart disease Father , 90's No problems noted. Sister , 70's Heart disease Sister , 60's Cancer Social History (Updated 03/17/25 @ 10:13 by Ana M Feliciano MD) Smoking/Tobacco Use Status: Former Tobacco Use tobacco type: cigarettes Quit Date: 08/26/11 Tobacco: How many years used: 40 Second Hand Exposure: Yes Smoking risk assessment performed?: Yes Alcohol Intake: current Alcohol Intake frequency: holidays/special occasions only Alcohol type: wine and hard liquor Drug use: Never Substance use type: does not use Caregiver/Support person: Yes Household members: spouse Housing: house Number of Children: 0 Communication Needs: None Education Level: other Do you need help understanding health information?: Rarely Pets and animals: Yes Pets and animals: cat(s) Sexually active: No Do you think of yourself as: straight/heterosexual Current gender identity: female What is your relationship status?: How often do you talk on the phone with friends or family?: once per week How often do you get together with friends or relatives?: decline to answer How often do you attend mandaen or taoism services?: decline to answer Do you belong to any clubs or organized social groups?: no Panel score (0-1 are the most socially isolated patients): 1 Rayna/Cheondoism: No preference Seatbelt use: always Helmet use: No Drive intox or ride w/intox driver education road instructor: No Meds Allergies and Home Medications Allergies Allergy/AdvReac Type Severity Reaction Status Date / Time spider venom Allergy Intermediate Swelling Verified 08/04/25 12:42 Home Medications ?Medication ?Instructions ?Recorded ?Confirmed ?Type cholecalciferol (vitamin D3) 50 2,000 unit PO DAILY #90 tab-caps 09/04/16 08/04/25 History mcg (2,000 unit) capsule (Vitamin D3) clopidogrel 75 mg tablet 75 mg PO DAILY #90 tabs 12/29/24 08/04/25 Rx hydrochlorothiazide 25 mg tablet 25 mg PO DAILY #90 tabs 05/04/25 08/04/25 Rx lisinopril 40 mg tablet (Zestril) 40 mg PO DAILY #90 tabs 05/04/25 08/04/25 Rx metoprolol succinate 100 mg 100 mg PO DAILY #90 tabs 06/07/25 08/04/25 Rx tablet,extended release 24 hr simvastatin 80 mg tablet 80 mg PO QPM 08/04/25 08/04/25 History Exam Narrative Exam Narrative: General: This is a pleasantly confused elderly woman in no distress HEENT: Normocephalic, atraumatic CV: RRR Resp: CTAB Abd: soft, NTND. Right flank ecchymosis. MSK: voluntary motion x4. Right hip abducted and internally rotated, pulses intact Neuro: awake, alert, chronic right hemiparesis Results Labs 08/04/25 13:20 08/04/25 13:20 Labs: Laboratory Results - last 24 hr 08/04/25 08/04/25 08/04/25 13:20 16:15 16:55 WBC 8.97 RBC 3.37 L Hgb 10.6 L Hct 31.3 L MCV 93 MCH 31.5 MCHC 33.9 RDW 12.3 Plt Count 216 MPV 10.4 Immature Gran % 0.3 Neutrophils % 76.2 Lymphocytes % 16.8 Monocytes % 6.0 Eosinophils % 0.3 Basophils % 0.4 Nucleated RBC % 0.0 Absolute Neutrophils 6.82 H Absolute Lymphocytes 1.51 Absolute Monocytes 0.54 Absolute Eosinophils 0.03 Absolute Basophils 0.04 Sodium 138 Potassium 4.1 Chloride 100 Carbon Dioxide 28.8 Anion Gap 9.2 BUN 42 H Creatinine 1.09 H Est GFR (CKD-EPI 2020) 48.25 Glucose 172 H Calcium 9.3 Total Bilirubin 0.8 AST 18 ALT 18 Alkaline Phosphatase 83 Total Protein 7.2 Albumin 4.3 Lipase 35 Urine Color Yellow Urine Clarity Clear Urine pH 5.5 Ur Specific [place] <= 1.005 Urine Protein Negative Urine Ketones Trace H Urine Blood Trace-intact H Urine Nitrite Negative Urine Bilirubin Negative Urine Urobilinogen 0.2 Ur Leukocyte Esterase Negative Urine RBC 0-2 Urine WBC Negative Ur Epithelial Cells Rare Urine Crystals Negative Urine Bacteria Rare Urine Casts Negative Urine Mucus Negative Urine Other Rare Transitional Ur Culture Indicated? No Urine Glucose Negative ABO/Rh O Positive Antibody Screen NEGATIVE Last Vital Signs Temp 37.0 C 08/04/25 12:38 Pulse 79 08/04/25 18:50 Resp 26 H 08/04/25 18:50 BP 124/48 L 08/04/25 18:45 Pulse Ox 94 08/04/25 18:50 VTE Prohylaxis Risk Level: Moderate/High Risk Contraindications: Active bleed/high bleed risk and Other (pre-operative, possible head bleed) Prophylaxis: Mechanical Time Spent Time spent with Patient: 40-54 minutes Time was spent: preparing to see the patient(eg.review tests), obtaining and/or reviewing separately otained hiistory, ordering medications,tests, procedures, referring, communicating with other health family day care worker, indepentently interpreting results, counseling the patient and care coordination
--- NOTE | 2025-08-04 21:11 | DI.CT_ITS ---
Exam(s) CT HEAD WO EXAM: CT HEAD WO CLINICAL HISTORY: interval bleed, per [facility]. TECHNIQUE: Imaging Protocol: Axial computed tomography images with coronal and sagittal reformatted images were created and reviewed COMPARISON: CT CT HEAD CERVICAL SPINE WO from 08/04/2025 FINDINGS: Ventricles and Extra axial spaces: Normal in size and morphology for the patient's age. Hemorrhage: Stable small focus of increased attenuation adjacent to the left lateral ventricle, in the left frontal lobe. This again could represent a small area of acute hemorrhage versus calcification. Cerebral parenchyma: No evidence of acute infarct or mass. Large areas of old infarct again noted in the left temporoparietal occipital region and left frontal region. Atrophy and microvascular changes. Midline shift: None. Brainstem/Cerebellum: Normal. Bones: No skull or facial fractures. Visualized Paranasal sinuses:Clear. Mastoids: Clear. Soft Tissues: Unremarkable. ORBITS: Unremarkable. PITUITARY: Not enlarged. IMPRESSION: Stable small focus of high attenuation adjacent to the left lateral ventricle. No new abnormalities since the exam performed earlier the same day. The preliminary [facility] report was reviewed. RADIATION DOSE DELIVERED: 862.17mGy.cm Total DLP DATA REPOSITORY: All CT scans at this facility are submitted to the National Radiology Data Registry (NRDR) Dose Index Registry (DIR) with the [employer] (ACR). RADIATION OPTIMIZATION: All CT scans at this facility use at least one of these dose optimization techniques: automated exposure control; mA and/or kV adjustment per patient size (includes targeted exams where dose is matched to clinical indication); or iterative reconstruction.
--- NOTE | 2025-08-04 21:25 | DI.[facility]_ITS ---
PROCEDURE INFORMATION: Exam: CT Head Without Contrast Exam date and time: 08/04/2025 9:05 PM Age: 80 years old Clinical indication: Other: Interval bleeding TECHNIQUE: Imaging protocol: Computed tomography of the head without contrast. Radiation optimization: All CT scans at this facility use at least one of these dose optimization techniques: automated exposure control; mA and/or kV adjustment per patient size (includes targeted exams where dose is matched to clinical indication); or iterative reconstruction. COMPARISON: 1. CT HEAD CERVICAL SPINE WO 08/04/2025 3:[address] HEAD WITHOUT CONTRAST 01/12/2012 3:41 PM FINDINGS: Brain: There is redemonstration of a small region of parenchymal hyperattenuation extending along the margin of the frontal horn of the left lateral ventricle on images 20-21 of series 6 and 29 of series 4 at the base of the small old left frontal infarct. A small region of acute hemorrhage or parenchymal calcification could have this appearance. This finding is grossly stable compared with the prior exam from earlier in the day but is new since the comparison exam from January 12, 2012. There is also a moderate-sized old left parietal infarct and a large old left occipitotemporal infarct. Otherwise, the lozano-white matter differentiation appears preserved. There is no gross mass effect or midline shift. Cerebral ventricles: The ventricular system and basilar cisterns appear appropriate in size and configuration. Paranasal sinuses: The visualized paranasal sinuses appear well-aerated. Mastoid air cells: The mastoid air cells appear well-aerated. Auditory system: The middle ear cavities appear clear. Orbital cavities: The globes and intraorbital structures appear grossly intact. Bones: The bony calvarium appears intact. No depressed skull fracture is seen. Soft tissues: No significant scalp lesion is seen. Vasculature: There is atherosclerotic calcification within the intracranial portion of the left vertebral artery and bilateral internal carotid arteries. IMPRESSION: 1. Small region of parenchymal hyperattenuation redemonstrated along the margin of the frontal horn of the left lateral ventricle at the base of a small old left frontal infarct. It is uncertain if this finding represents a small region of acute subarachnoid hemorrhage or parenchymal calcification. This finding appears grossly stable compared with the recent prior exam from earlier in the day but is new since the comparison exam from 2011. 2. Moderate-sized old left parietal infarct. Large old left occipitotemporal infarct. Dictated and Authenticated by: Meek Broussard MD. Orderin Antonio Holcomb MD
[2025-08-05] VITALS (31 sets, daily range): BP systolic 99–145; BP diastolic 34–104; PULSE 73–134; RESP 16–31; TEMP 36.3–37.3; O2SAT 92–99; BMI 26.7
--- NOTE | 2025-08-05 | DI.RAD_ITS ---
Exam(s) XR FOOT LT COMPLETE EXAM: XR FOOT LT COMPLETE CLINICAL HISTORY: fall/toe injury. TECHNIQUE: 2D digital imaging was performed. Three views. Portable. COMPARISON: No exams were available for comparison FINDINGS: Exam is limited by overlying densities present within the patient's ox. BONES: No acute fracture is present. No bony destructive lesion is seen. JOINTS: No dislocation present. SOFT TISSUE: Normal. IMPRESSION: Unremarkable radiographs of the left foot. DATA REPOSITORY: RADIATION DOSE DELIVERED:
--- NOTE | 2025-08-05 00:53 | W.PC.ACHO ---
Registration Status: ADM SEN Primary Language: Preferred Language: Occitan ED Information & Data Chief Complaint Orthopedic 08/04/25 16:02 Triage Note Pt believes that she turned 08/04/25 12:38 too quickly when ambulating, lost her balance and fell injuring her right hip- hip appears swollen with leg internally rotated and shortened- given 50 mcg fentanyl and 1G Apap via EMS Medical / Surgical History (Last Reviewed 12/29/24 @ 12:59 by Elisa Phillips MD) Hx of ischemic left MCA stroke (~2013) Chronic anticoagulation (03/22/14) (Last Reviewed 12/29/24 @ 12:59 by Elisa Phillips MD) Status post fracture of left tibia Most Recent Vital Signs Temperature 36.8 C 08/05/25 00:08 Temperature Source Temporal Artery Scan 08/05/25 00:08 Pulse 85 08/05/25 00:08 Pulse Rhythm Regular 08/04/25 20:46 Pulse 81 08/04/25 19:31 Respiratory Rate 17 08/04/25 20:46 Respiratory Effort Normal 08/04/25 20:46 Respiratory Depth Normal 08/04/25 20:46 Respiratory Pattern Normal 08/04/25 20:46 Blood Pressure 99/49 L 08/05/25 00:08 Blood Pressure Mean 65 08/05/25 00:08 Blood Pressure Position Supine 08/04/25 12:38 Pulse Oximetry 95 08/05/25 00:08 Oxygen Delivery Method Room Air 08/05/25 00:08 Oxygen Flow Rate 0 08/05/25 00:08 Pain Level 8 08/04/25 23:20 Comment O2 Via NC temp/pt just had fentanyl 08/04/25 20:46 Allergies spider venom Allergy (Intermediate, Verified 08/04/25 12:42) Swelling Precautions Isolation Standard precaution 08/04/25 12:41 Active Medications Generic Name Dose Route Start Last Admin Trade Name Freq PRN Reason Stop Dose Admin Fentanyl 50 mcg 08/04/25 16:09 08/04/25 23:20 Fentanyl 100 Mcg/2 Ml Vial IVP 50 mcg Q2H PRN PRN Administration Iohexol 100 ml 08/04/25 15:15 08/04/25 15:12 Omnipaque 350 Mg/Ml 100 Ml Btl IJ 09/03/25 23:59 75 ml DIRECTED FERMÍN Administration Sodium Chloride 50 ml 08/04/25 15:15 08/04/25 15:12 Normal Saline - Diluent 50 Ml Vial IJ 50 ml DIRECTED FERMÍN Administration Sodium Chloride 0 ml 08/04/25 15:10 08/04/25 15:12 Normal Saline Flush 10 Ml Syr IVP 10 ml PRN PRN Administration IV IV Catheter Type [Left Saline Lock Antecubital] IV Catheter Gauge [Left 20 Antecubital] Diet Orders Category Date Time Status npo [Nothing Per Oral] [DIET] Nutrition 08/05/25 00:01 Active Diagnostics 08/05/25 08/04/25 08/04/25 Range/Units 05:35 16:55 16:15 WBC (4.4-10.8) 10^3/uL RBC (3.93-5.22) 10^6/uL Hgb Pending (11.2-15.7) g/dL Hct Pending (36.0-46.0) % MCV (80-95) fL MCH (27.0-33.0) pg MCHC (32.0-36.0) % RDW (11.7-14.6) % Plt Count (130-400) 10^3/uL MPV (8.0-11.0) fL Immature Gran % % Neutrophils % % Lymphocytes % % Monocytes % % Eosinophils % % Basophils % % Nucleated RBC % (0.0-0.3) % Absolute Neutrophils (1.2-6.7) 10^3/uL Absolute Lymphocytes (1.2-3.4) 10^3/uL Absolute Monocytes (0.1-0.8) 10^3/uL Absolute Eosinophils (0.0-0.7) 10^3/uL Absolute Basophils (0.0-0.2) 10^3/uL PT Pending INR Pending Sodium Pending (136-145) mmol/L Potassium Pending (3.5-5.1) mmol/L Chloride Pending (98-107) mmol/L Carbon Dioxide Pending (20.0-31.0) mmol/L Anion Gap Pending (3-11) mmol/L BUN Pending (9-23) mg/dL Creatinine Pending (0.55-1.02) mg/dL Est GFR (CKD-EPI 2020) Pending (mL/min/1.73m2) Glucose Pending (74-106) mg/dL Calcium Pending (8.3-10.6) mg/dL Total Bilirubin (0.2-1.2) mg/dL AST (<34) U/L ALT (10-49) U/L Alkaline Phosphatase (46-116) U/L Total Protein (5.7-8.2) g/dL Albumin (3.2-5.0) g/dL Lipase (<53) U/L Urine Color Yellow (Yellow) Urine Clarity Clear (Clear) Urine pH 5.5 (5-8) Ur Specific [place] <= 1.005 (1.005-1.025) Urine Protein Negative (Neg-Trace) mg/dL Urine Ketones Trace H (Negative) mg/dL Urine Blood Trace-intact H (Negative) Urine Nitrite Negative (Negative) Urine Bilirubin Negative (Negative) Urine Urobilinogen 0.2 (Up to 0.2) mg/dL Ur Leukocyte Esterase Negative (Negative) Urine RBC 0-2 (0-2) HPF Urine WBC Negative (0-5) HPF Ur Epithelial Cells Rare (Negative) HPF Urine Crystals Negative (Negative) HPF Urine Bacteria Rare (Negative) HPF Urine Casts Negative (Negative) LPF Urine Mucus Negative (Negative) Urine Other Rare Transitional (Negative) Ur Culture Indicated? No Urine Glucose Negative (Negative) mg/dL ABO/Rh O Positive Antibody Screen NEGATIVE 08/04/25 Range/Units 13:20 WBC 8.97 (4.4-10.8) 10^3/uL RBC 3.37 L (3.93-5.22) 10^6/uL Hgb 10.6 L (11.2-15.7) g/dL Hct 31.3 L (36.0-46.0) % MCV 93 (80-95) fL MCH 31.5 (27.0-33.0) pg MCHC 33.9 (32.0-36.0) % RDW 12.3 (11.7-14.6) % Plt Count 216 (130-400) 10^3/uL MPV 10.4 (8.0-11.0) fL Immature Gran % 0.3 % Neutrophils % 76.2 % Lymphocytes % 16.8 % Monocytes % 6.0 % Eosinophils % 0.3 % Basophils % 0.4 % Nucleated RBC % 0.0 (0.0-0.3) % Absolute Neutrophils 6.82 H (1.2-6.7) 10^3/uL Absolute Lymphocytes 1.51 (1.2-3.4) 10^3/uL Absolute Monocytes 0.54 (0.1-0.8) 10^3/uL Absolute Eosinophils 0.03 (0.0-0.7) 10^3/uL Absolute Basophils 0.04 (0.0-0.2) 10^3/uL PT INR Sodium 138 (136-145) mmol/L Potassium 4.1 (3.5-5.1) mmol/L Chloride 100 (98-107) mmol/L Carbon Dioxide 28.8 (20.0-31.0) mmol/L Anion Gap 9.2 (3-11) mmol/L BUN 42 H (9-23) mg/dL Creatinine 1.09 H (0.55-1.02) mg/dL Est GFR (CKD-EPI 2020) 48.25 (mL/min/1.73m2) Glucose 172 H (74-106) mg/dL Calcium 9.3 (8.3-10.6) mg/dL Total Bilirubin 0.8 (0.2-1.2) mg/dL AST 18 (<34) U/L ALT 18 (10-49) U/L Alkaline Phosphatase 83 (46-116) U/L Total Protein 7.2 (5.7-8.2) g/dL Albumin 4.3 (3.2-5.0) g/dL Lipase 35 (<53) U/L Urine Color (Yellow) Urine Clarity (Clear) Urine pH (5-8) Ur Specific [place] (1.005-1.025) Urine Protein (Neg-Trace) mg/dL Urine Ketones (Negative) mg/dL Urine Blood (Negative) Urine Nitrite (Negative) Urine Bilirubin (Negative) Urine Urobilinogen (Up to 0.2) mg/dL Ur Leukocyte Esterase (Negative) Urine RBC (0-2) HPF Urine WBC (0-5) HPF Ur Epithelial Cells (Negative) HPF Urine Crystals (Negative) HPF Urine Bacteria (Negative) HPF Urine Casts (Negative) LPF Urine Mucus (Negative) Urine Other (Negative) Ur Culture Indicated? Urine Glucose (Negative) mg/dL ABO/Rh Antibody Screen Intake and Output - 24 Hour Total 08/04/25 12:18 thru 08/04/25 22:53 Intake Total 1010 Output Total 200 Balance 810 Weight 70.7 kg Intake: IV 1010 Output: Urine 200 Other: Urine Color Yellow Urine Appearance Clear Comment x1 unsuccessful attempt by ML (assisted by KEVON, art history instructor). 1x successful attempt by MARKUS, RN (assisted by JESSICA, RN and KEVON, art history instructor). Pt tolerated procedure well. Urinary Catheter Urinary Catheter Date of 08/04/25 Insertion [Urethral (Elias)] Time of insertion [Urethral ( 16:50 Elias)] Falls Risk Assessment History of Falls Admit Due to Fall 08/04/25 20:46 Contributing Factors Confusion 08/04/25 20:46 Ambulatory Aids Independent 08/04/25 13:26 Tubes/Lines W/no contributing factors 08/04/25 13:26 Gait Evaluation W/no contributing factors 08/04/25 13:26 Cognition No cognitive impairment 08/04/25 13:26 Fall Total Score 28 08/04/25 20:46 Level of Risk Moderate Risk 08/04/25 20:46 Problems (Last Reviewed 12/29/24 @ 12:59 by Elisa Phillips MD) Benign essential hypertension (Acute) Abnormal head CT (Acute) Closed comminuted intertrochanteric fracture of right femur (Acute) Abnormal CT scan, kidney (Acute) Closed intertrochanteric fracture of right hip (Acute 08/04/25) Diabetes mellitus due to underlying condition, controlled, with diabetic neuropathy, without long-term current use of insulin (Acute) Attestation Statement: By documenting the first initial, last name, and credentials of the reporting nurse below, both parties acknowledge that all relevant information regarding the patient handoff has been communicated, and that all questions have been addressed to ensure continuity and safety of care. Additional Patient Information/Comments: Pt admitted for fractured right femur and concern for acute SAH, on pain control. Neurosurg and ortho consulted. Report Received From: ED RN
[2025-08-05] MEDS: fentaNYL 100 MCG/2 ML VIAL 50 MCG IVP ×2 (06:36→20:08)
[2025-08-05 06:41] LABS: HCT 28.6 % (36.0-46.0); HGB 9.6 g/dL (11.2-15.7)
[2025-08-05 06:59] LABS: INR 1.0 (0.9-1.1); Prothrombin Time 10.3 sec (9.1-11.1)
[2025-08-05 07:05] LABS: Anion Gap 8.5 mmol/L (3-11); BUN 35 mg/dL (9-23); CO2 26.5 mmol/L (20.0-31.0); Calcium 8.7 mg/dL (8.3-10.6); Chloride 106 mmol/L (98-107); Glucose 152 mg/dL (74-106); Potassium 4.0 mmol/L (3.5-5.1); Sodium 141 mmol/L (136-145)
--- NOTE | 2025-08-05 07:05 | PDOC.CMIN ---
Date of service: 08/05/25 Time of Service: 11:02 Care Management Initial Assmt Initial Assessment Reason for Hospitalization: Fall Functional Status/Living Situation Patient Presentation: Viry was in the OR when attempted to meet with her. She presented to the Emergency Department after a fall in which she landed on her right hip. Orthopedic Surgery has been consulted, and it is anticipated that she will go to the operating room today. A repeat CT scan is planned. A Palliative Care consult was requested, as appropriate. Viry resides in [place] with her , Sridhar. Sridhar has been out of the home for several weeks due to his own medical issues and is currently at [facility]. Vriy reports that her neighbors have been checking in on her regularly and providing significant support, including delivering meals three times daily during Sridhar?s six-week absence. Viry?s community health director is Maryjo Richey ([phone] ext. [phone]). According to Maryjo, Viry was previously accepted for private-pay respite care at [facility] for 08/04. contacted Jeanette Christianson and Dimple Lindsey to provide an update and confirm whether the prior offer remains valid. Per Jeanette, the facility is still willing to accept Viry pending a new referral and a qualifying hospital stay. A PT consult will be ordered and it is anticipated that a referral for STR will be submitted following evaluation. Advanced directives are on file, listing Sridhar as Viry?s health care agent. With the patient?s permission, a [facility] referral has been submitted to support Viry and Sridhar with long-term planning. Per Rosa at [facility], she will follow up with Maryjo Richey to review the necessary financial documentation. Rosa noted that a private home care provider may be the most appropriate option for the family. Sridhar had previously been actively pursuing a live-in home care provider through the [facility] agency. CM will continue to follow. Town of Residence: [place] Resides with: Spouse (Sridhar Ward) Significant Other/Family: Local Caregiver/Guardian: Sridhar Ward Natural Supports: Neighbors, [facility] Maryjo Richey, Instrumental Activities of Daily Living (ADLs): Requires support Medications Medication Management: No Issues/Barriers identified Advance Directives Advance Directives: Do you have an Advance Directive: Y 01/16/13, 08:13 AD On File at [facility]: Y 10/23/12, 15:35 Date Asked 08/04/25 08/04/25, 12:41 AD Date Reviewed 08/04/25 Today, 08:23 COLST On File at [facility] No 03/12/25, 16:52 COLST Date Scanned Code Status Resuscitation Status Full Code Portal Pt does not currently have a portal and education provided: Yes Insurance Coverage/Financial Issues Insurance: Medicare Part A & B - [id number] Care Team Visit Care Team Role Provider Type Jackson Mccray MD MD [facility] STAFF PHYSICIAN Marleen Boyle, [place] Primary Care Provider NURSE PRACTITIONER Regis Neff MD Other Providers [facility] STAFF PHYSICIAN Maria Alejandra Chino, [place] Emergency Provider NURSE PRACTITIONER Zhang Alvarez MD Admit Provider [facility] STAFF PHYSICIAN Attending Provider Discharge Potential Discharge Needs: Consult Consult Services Needed: Palliative, PT Evaluation, PCP F/U Appt and Surgical F/U Appt Anticipated Barriers to Discharge: Bed availability Patient/Family Education Needs: Review discharge instructions, discuss Ask Me Three Plan: Anticipate Viry will be discharged to SNF for STR, once medically ready for discharge. Viry will undergo surgical repair of her hip today, and will have a PT consult following. It will be recommended she follow up with her community provider, palliaitive care, surgical team, and discharge plan of care. Transportation will be determined by PT and mobility at time of discharge. CM will follow. Social Determinants of Health Screening Social Determinants of health last assessed in clinic: 08/05/25 Will the Patient Participate in the Screening?: Yes Do you worry about having a steady place to live?: yes What is your living situation today?: I have housing today, but am worried about losing it Problems where you live: no known problems In the past 12 months, have you had to go without electric, gas, oil or water in your home?: yes 1. Within the past 12 months, we worried whether our food would run out before we got money to buy more.: Don't know/refused 2. Within the past 12 months, the food we bought just didn't last and we didn't have money to get more.: Don't know/refused Has lack of transportation kept you from medical appointments or from doing things needed for daily living?: yes Has anyone in your life made you feel unsafe or unsupported?: no How hard is it for you to pay for the very basics like food, housing, medical care, and heating? Would you say it is:: Not hard at all Do you want help finding or keeping work or a job?: I do not need or want help If for any reason you need help with day-to-day activities such as bathing, preparing meals, shopping, managing finances, etc., do you get the help you need?: I could use a little more help How often do you feel lonely or isolated from those around you?: Never Do you speak a language other than [place] at home?: No Does the patient want assistance with any of the above?: No Health Related Social Needs Health related social needs: housing instability, housed, with risk of homelessness (Z59.811), transportation insecurity (Z59.82), material hardship(utilities) (Z59.12) and problems with daily activities (Z73.9) Health related social needs details: Pt will need assistance with ADLs due to recent fracture from a fall prompting this admission [facility] All Active Problems (Updated 08/04/25 @ 23:57 by Zhang Alvarez MD) Benign essential hypertension (Acute) Abnormal head CT (Acute) Closed comminuted intertrochanteric fracture of right femur (Acute) Abnormal CT scan, kidney (Acute) Fall (Acute) Intracranial bleed (Acute) Trochanteric fracture of right femur (Acute) Closed intertrochanteric fracture of right hip (Acute 08/04/25) Short-term memory loss (Chronic) Due to stroke in 2011. They feel it is stable. 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 to thrombus L ICA (R)hemiparesis,expressive aphasia/(R) visual field cut/impaired mobility : TIA Chronic anticoagulation (03/22/14) CVA + TIA ,goal inr 2-3; changed to plavix 05/2022 Surgical History Status post fracture of left tibia Family History Mother , 90's Heart disease Father , 90's No problems noted. Sister , 70's Heart disease Sister , 60's Cancer Social History (Updated 03/17/25 @ 10:13 by Ana M Feliciano MD) Smoking/Tobacco Use Status: Former Tobacco Use tobacco type: cigarettes Quit Date: 08/26/11 Tobacco: How many years used: 40 Second Hand Exposure: Yes Smoking risk assessment performed?: Yes Alcohol Intake: current Alcohol Intake frequency: holidays/special occasions only Alcohol type: wine and hard liquor Drug use: Never Substance use type: does not use Caregiver/Support person: Yes Household members: spouse Housing: house Number of Children: 0 Communication Needs: None Education Level: other Do you need help understanding health information?: Rarely Pets and animals: Yes Pets and animals: cat(s) Sexually active: No Do you think of yourself as: straight/heterosexual Current gender identity: female What is your relationship status?: How often do you talk on the phone with friends or family?: once per week How often do you get together with friends or relatives?: decline to answer How often do you attend mormon or orthodox services?: decline to answer Do you belong to any clubs or organized social groups?: no Panel score (0-1 are the most socially isolated patients): 1 Rayna/Gnosticist: No preference Seatbelt use: always Helmet use: No Drive intox or ride w/intox gas truck driver: No Readmission Within the Past 30 Days Yes or No: No
[2025-08-05] MEDS: Metoprolol CR 100 MG TABCR PO (09:08)
--- NOTE | 2025-08-05 09:31 | DI.RAD_ITS ---
Exam(s) XR HIP RT IN OR EXAM: XR HIP RT IN OR CLINICAL HISTORY: Closed intertrochanteric fracture of right hip. TECHNIQUE: 2D and realtime digital imaging was performed. COMPARISON: CR XR PELVIS AP from 08/04/2025 FINDINGS: Hard copy images show placement of hardware in the right proximal femur for fracture fixation. The alignment appears satisfactory. Please see procedure note for details. Fluoro time: 59.6seconds RADIATION DOSE DELIVERED: yaw Cade=9.6 mGy
--- NOTE | 2025-08-05 09:59 | ANES.PREOP_ITS ---
General Info Date of Service Date Performed: 08/05/25 Height: 5 ft 4 in Weight: 70.7 kg Body Mass Index (BMI): 26.7 Surgical Procedure: Operation Date: 08/05/25 10:30 Proposed Procedure Side Surgeon p Hip TFNA Right Regis Neff MD Meds Allergies and Home Medications Allergies Allergy/AdvReac Type Severity Reaction Status Date / Time spider venom Allergy Intermediate Swelling Verified 08/04/25 12:42 Home Medication ?Medication ?Instructions ?Recorded cholecalciferol (vitamin D3) 50 2,000 unit PO DAILY #9 0 tab-caps 09/04/16 mcg (2,000 unit) capsule (Vitamin D3) clopidogrel 75 mg tablet 75 mg PO DAILY #90 tabs 0502/17 hydrochlorothiazide 25 mg tablet 25 mg PO DAILY #90 ta bs 05/04/25 lisinopril 40 mg tablet (Zestril) 40 mg PO DAILY #90 t abs 05/04/25 metoprolol succinate 100 mg 100 mg PO DAILY #90 tabs 1 tablet,extended release 24 hr simvastatin 80 mg tablet 80 mg PO QPM 08/04/25 Current Visit Medications: Current Medications Generic Name Dose Route Start Last Admin Trade Name Freq PRN Reason Stop Dose Admin Fentanyl 50 mcg 08/04/25 16:09 08/05/25 06:36 Fentanyl 100 Mcg/2 Ml Vial IVP 50 mcg Q2H PRN PRN Administration Metoprolol Succinate 100 mg 08/05/25 08:30 08/05/25 09:08 Metoprolol Cr 100 Mg Tabcr PO 100 mg DAILY FERMÍN Administration Sodium Chloride 0 ml 08/04/25 15:10 08/04/25 15:12 Normal Saline Flush 10 Ml Syr IVP 10 ml PRN PRN Administration PFSH Active Problems Active Problems: Problem Status Onset Code Benign essential hypertension Acute I10 Abnormal head CT Acute R93.0 Closed comminuted intertrochanteric fracture of right femur Acute S72.141A Abnormal CT scan, kidney Acute R93.429 Fall Acute W19.XXXA Intracranial bleed Acute I62.9 Trochanteric fracture of right femur Acute S72.101A Closed intertrochanteric fracture of right hip Acute 08/04/25 S72.141A Short-term memory loss Chronic R41.3 Carotid stenosis, right Acute I65.21 Diabetes mellitus due to underlying condition, controlled, with diabetic neuropathy, without long-term current use of insulin Acute E08.40 Carotid occlusion, left Chronic I65.22 Essential hypertension Chronic 07/27/13 I10 Hyperlipidemia Chronic 12/19/11 E78.5 Vitamin D deficiency Chronic E55.9 Medical History Medical History Hx of ischemic left MCA stroke (~2013) 09-10-2011: Left MCA infarct sec. to thrombus L ICA (R)hemiparesis,expressive aphasia/(R) visual field cut/impaired mobility : TIA Chronic anticoagulation (03/22/14) CVA + TIA ,goal inr 2-3; changed to plavix 05/2022 Surgical History Surgical History Status post fracture of left tibia Tobacco Smoking/Tobacco Use Status: Former Tobacco Use Passive smoking exposure: Yes Second hand exposure: Yes Alcohol Alcohol Intake: current Alcohol intake frequency: holidays/special occasions only Alcohol type: wine and hard liquor Substance Use Substance use: Never Substance use type: does not use Vital Signs and Lab Results Vital Signs Most Recent Vital Signs in EMR: Most Recent Vital Signs Temp Pulse Resp BP Pulse Ox 36.3 C L 78 16 114/59 L 96 08/05/25 08:18 08/05/25 08:18 08/05/25 08:18 08/05/25 08:18 08/05/25 08:18 Lab Results 08/05/25 06:17 08/05/25 06:17 Blood Type / Crossmatch: 2 Antibody Screen NEGATIVE 08/04/25 Complete Blood Count: 2 WBC, (4.4-10.8) 8.97 10^3/uL 08/04/25, 13:20 RBC, (3.93-5.22) 3.37 10^6/uL L 08/04/25, 13:20 Hgb, (11.2-15.7) 9.6 g/dL L Today, 06:17 Hct, (36.0-46.0) 28.6 % L Today, 06:17 Plt Count, (130-400) 216 10^3/uL 08/04/25, 13:20 Complete Metabolic Panel: 2 Sodium, (136-145) 141 mmol/L Today, 06:17 Potassium, (3.5-5.1) 4.0 mmol/L Today, 06:17 Chloride, (98-107) 106 mmol/L Today, 06:17 Carbon Dioxide, (20.0-31.0) 26.5 mmol/L Today, 06:17 BUN, (9-23) 35 mg/dL H Today, 06:17 Creatinine, (0.55-1.02) 0.92 mg/dL Today, 06:17 Est GFR (CKD-EPI 2020), (mL/min/1.73m2) 58.68 Today, 06:17 Calcium, (8.3-10.6) 8.7 mg/dL Today, 06:17 Albumin, (3.2-5.0) 4.3 g/dL 08/04/25, 13:20 Glucose, (74-106) 152 mg/dL H Today, 06:17 Liver Function Panel: 2 ALT, (10-49) 18 U/L 08/04/25, 13:20 AST, (<34) 18 U/L 08/04/25, 13:20 Coagulation Panel: 2 INR, (0.9-1.1) 1.0 Today, 06:17 PT, (9.1-11.1) 10.3 sec Today, 06:17 Pancreas Panel: 2 Lipase, (<53) 35 U/L 08/04/25, 13:20 Imaging and Studies Imaging and Studies Study information below may be from another EMR and interpreted by another provider. Please see original notes in EMR for more complete details. EKG Summary: 08/04/25 Exam: Resting ECG Reason for Exam: right hip injury, fall Patient Location: E HR:68 bpm ECG Measurements Heart Rate 68 AXIS FL 219 P 46 QRSd 72 QRS 0 QT 408 T30 QTc 436 Conclusion Sinus rhythm...normal P axis, V-rate 60- 99 Borderline prolonged FL interval...FL >212, V-rate 50- 90 Low voltage, precordial leads...precordial leads <1.0mV Carotid Artery Summary:: 09/15/24 RIGHT CAROTID ARTERY: Plaque: Minimal plaque at the common carotid artery. Calcific plaque at the common carotid bulb and proximal internal carotid artery. Velocity elevation: Elevated systolic and diastolic velocity measurements consistent with a 50-69 percent stenosis. LEFT CAROTID ARTERY: Plaque: Plaque at the common carotid bulb causing occlusion. Occlusion of proximal through distal internal carotid artery. External carotid artery patent which shows plaque and elevated velocities with visually 50 percent stenosis. VERTEBRAL ARTERIES: Antegrade flow. IMPRESSION: Occlusion of the left internal carotid artery beginning at the origin. 50-69 percent stenosis of the proximal right internal carotid artery. Anesthesia Assessment and Plan Anesthesia History Personal History: No History of Anesthesia Complications Family History: No Family History of Anesthesia Complications Exercise Tolerance Exercise Tolerance: Metabolic Equivalents<4 Cardiac & Pulmonary Exam Cardiac Exam: Normal S1/S2 Heart Sounds Pulmonary Exam: Clear Bilateral Breath Sounds Implantable Cardiac Device Does patient have a Pacemaker or an ICD?: No Airway Exam Known Difficult Airway: No Mallampati Class: 4 Mouth Opening: Normal (> 3cm) Thyromental Distance: Greater than 3 cm Neck Range of Motion: Full ROM Neck Circumference: Normal Teeth Condition: Normal Dentition ASA Classification ASA Score: ASA 3 Emergency Case?: No NPO Status NPO Status: NPO Clears >2 hours, Solids >8 hours Anesthesia Plan Resuscitation Status: Full Code Anesthesia Technique: General Anesthesia Airway Planned: Endotracheal Tube Monitors Used: Standard Monitors Preoperative Comments:: 80 yo with recent fall with hip fracture. No LOC was described. CT scan of head showed ? of small hemorrhage vs calcification. She was admitted overnight with plans of attempting to move her to a tertiary center - for which there are no beds. [facility] neuro was reached out to for input on the head CT. Per their recommendation a repeat scan was obtained with no interval change. Sig PMHx: HTN (lisinopril, HCTZ, metoprolol), CVA (left MCA infarct, has a residual right gabriel), carotid stenosis/occlusion (Plavix - unclear on last dose), DM Former smoker, occ EtOH. ECG: sinus. Carotid US: occlusion of the left ICA. 50-69% stenosis on the right. Discussed plan with patient who was a less than desirable historian. She seems to understand most of her history, but very unclear on some. I was able to chat with her , Sridhar. We reviewed the risks of anesthesia. Specifically the serious risks such as heart attack and stroke (both hemorrhagic and ischemic). Sridhar is on board with the plan, and so is Viry.
--- NOTE | 2025-08-05 10:07 | PGE_ITS ---
Date of Service Date of service: 08/05/25 Time of Service: 14:55 Assessment and Plan Assessment and plan (1) Abnormal head CT: Status: Acute Assessment and plan: -Possible head injury with no LOC upon falling -Initial CT head on 08/04 showing multiple old infarcts, with left frontal lobe attenuation near left lateral ventricle concerning for hemorrhage vs calcification; no changes on repeat CT performed 8 hours later -[facility] neurosurgery consulted at 23:30 for followup, no intraoperative concerns. -Continue neuro checks q4h (2) Closed comminuted intertrochanteric fracture of right femur: Status: Acute Assessment and plan: -Noted on CT -Orthopedic surgery performed R intramedullary nailing, no intraoperative events -Morning PT/INR, H&H, BMP all reassuring -start lovenox in AM 08/06 (3) Abnormal CT scan, kidney: Status: Acute Assessment and plan: -Incidental CT finding: There is an exophytic lobulated and enhancing mass from the posterior medial aspect of the right kidney measuring 2 by 2.5 x 3.8 cm -Not discussed with patient on admission due to her confusion -outpt f/u recommended w PCP (4) Diabetes mellitus due to underlying condition, controlled, with diabetic neuropathy, without long-term current use of insulin: Status: Acute Assessment and plan: -Last known A1C 6.3 in February 2025, not on any meds at this time (5) Benign essential hypertension: Status: Acute Assessment and plan: -Normotensive on admission -Discussed with BANKING AND FINANCE INSTRUCTOR, pt given morning metoprolol succinate -Hold home HCTZ, lisinopril Subjective Subjective Interval history since last seen: No acute events overnight. Viry was brought to the OR around 10 am for R hip intramedullary nailing for R hip intertrochanteric fx. Pt returned from OR, no report of intraoperative complications. She reports she is feeling well, denies recent fever/chills, signs of illness such as congestion/sore throat/congestion/cough, chest pain, abdominal pain, n/v, change in bowel function. Denies pain at this time. Exam Const General: cooperative, healthy appearing, comfortable and no acute distress Nutritional Appearance: average body habitus and well nourished Orientation: alert HENMD Head: normal to inspection and atraumatic Ears: hearing grossly normal bilaterally General nose exam: external nose normal Face and sinus: normal facial exam Resp Effort & Inspection: normal respiratory effort and able to speak in complete sentences Auscultation: clear to auscultation bilaterally Cardio Rate: regular rate Rhythm: regular rhythm GI Inspection: normal to inspection Palpation: soft and nontender Skin General skin exam: other (clean dry bandage intact to R proximal lateral thigh) Neuro Motor: other (R sided LE paresis, 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) Sensory Exam: no sensory deficits noted Objective Last Vital Signs Temp 97.3 F L 08/05/25 08:18 Pulse 78 08/05/25 08:18 Resp 16 08/05/25 08:18 BP 114/59 L 08/05/25 08:18 Pulse Ox 96 08/05/25 08:18 Laboratory Results - last 24 hr 08/04/25 08/04/25 08/04/25 13:20 16:15 16:55 WBC 8.97 RBC 3.37 L Hgb 10.6 L Hct 31.3 L MCV 93 MCH 31.5 MCHC 33.9 RDW 12.3 Plt Count 216 MPV 10.4 Immature Gran % 0.3 Neutrophils % 76.2 Lymphocytes % 16.8 Monocytes % 6.0 Eosinophils % 0.3 Basophils % 0.4 Nucleated RBC % 0.0 Absolute Neutrophils 6.82 H Absolute Lymphocytes 1.51 Absolute Monocytes 0.54 Absolute Eosinophils 0.03 Absolute Basophils 0.04 PT INR Sodium 138 Potassium 4.1 Chloride 100 Carbon Dioxide 28.8 Anion Gap 9.2 BUN 42 H Creatinine 1.09 H Est GFR (CKD-EPI 2020) 48.25 Glucose 172 H Calcium 9.3 Total Bilirubin 0.8 AST 18 ALT 18 Alkaline Phosphatase 83 Total Protein 7.2 Albumin 4.3 Lipase 35 Urine Color Yellow Urine Clarity Clear Urine pH 5.5 Ur Specific [place] <= 1.005 Urine Protein Negative Urine Ketones Trace H Urine Blood Trace-intact H Urine Nitrite Negative Urine Bilirubin Negative Urine Urobilinogen 0.2 Ur Leukocyte Esterase Negative Urine RBC 0-2 Urine WBC Negative Ur Epithelial Cells Rare Urine Crystals Negative Urine Bacteria Rare Urine Casts Negative Urine Mucus Negative Urine Other Rare Transitional Ur Culture Indicated? No Urine Glucose Negative ABO/Rh O Positive Antibody Screen NEGATIVE 08/05/25 06:17 WBC RBC Hgb 9.6 L Hct 28.6 L MCV MCH MCHC RDW Plt Count MPV Immature Gran % Neutrophils % Lymphocytes % Monocytes % Eosinophils % Basophils % Nucleated RBC % Absolute Neutrophils Absolute Lymphocytes Absolute Monocytes Absolute Eosinophils Absolute Basophils PT 10.3 INR 1.0 Sodium 141 Potassium 4.0 Chloride 106 Carbon Dioxide 26.5 Anion Gap 8.5 BUN 35 H Creatinine 0.92 Est GFR (CKD-EPI 2020) 58.68 Glucose 152 H Calcium 8.7 Total Bilirubin AST ALT Alkaline Phosphatase Total Protein Albumin Lipase Urine Color Urine Clarity Urine pH Ur Specific [place] Urine Protein Urine Ketones Urine Blood Urine Nitrite Urine Bilirubin Urine Urobilinogen Ur Leukocyte Esterase Urine RBC Urine WBC Ur Epithelial Cells Urine Crystals Urine Bacteria Urine Casts Urine Mucus Urine Other Ur Culture Indicated? Urine Glucose ABO/Rh Antibody Screen VTE Prohylaxis Risk Level: Moderate/High Risk Contraindications: Active bleed/high bleed risk and Other (pre-operative, possible head bleed) Prophylaxis: Mechanical Time Spent with Patient Time Spent with Patient: >50 minutes Time was spent: preparing to see the patient(eg.review tests), obtaining and/or reviewing separately otained hiistory, ordering medications,tests, procedures, referring, communicating with other health primary health care nurse, indepentently interpreting results, counseling the patient and care coordination
--- NOTE | 2025-08-05 10:09 | ROE_ITS ---
Operative Note Operative Note PRE-OP DIAGNOSIS: Right hip intertrochanteric fracture POST-OP DIAGNOSIS: same PROCEDURE: Right hip intramedullary nail, CPT #00326 SURGEON: Regis Neff FEED IN WORKER: None None ANESTHESIA TYPE: Local By Surgeon and General LMA/ETT Refer to Anesthesia Record ESTIMATED BLOOD LOSS: 10 COMPLICATIONS: Other (Please see anesthesia record for arterial line issue on the left wrist) Patient was transported to: PACU Patient's condition: stable Implants: Synthes TFNA [id number] 130 deg, 85 mm TFNA helical blade, 34 mm 5.0mm distal locking screw Indications: Please see medical record for details Findings: Displaced peritrochanteric type fracture with comminuted extremely poor bone trochanteric bone quality Procedure Description: In the operating room, general anesthesia was induced. The patient was transferred and positioned supine on the fracture table. All bony prominences were well padded. Pre-operative antibiotics were administered. C-arm fluoroscopy was used to confirm appropriate provisional fracture reduction with traction and internal rotation. The correct patient, procedure, and side of the procedure were all verified prior to incision. The hip was prepped and draped in the usual sterile fashion. Local anesthetic with epinephrine was infiltrated about the planned start point as well as later about the lateral entry site for cephalomedullary and distal locking screws. C- arm fluoroscopy was used to locate the appropriate start point for the guide wire on the tip of the greater trochanter. This guide wire was advanced centrally down the proximal femur to the level of the lessor trochanter. Lateral images confirmed appropriate start point on the trochanter. Next the incision was extended about the guide wire to accommodate the nailing jig and this incision was carried down through the fascia and spread apart for ease of future instrument passage. The entry reamer was inserted along with the soft tissue protection tube and this reamer was used to open the proximal femur. The entry reamer, soft tissue protector, and guidewire were removed from the proximal femur. The appropriately selected nail was assembled on the back table to the jig and tested to ensure proper passage of the cephalomedullary drill. This implant was manually inserted into the proximal femur and advanced to the appropriate level for cephalomedullary fixation. Another incision was made laterally to accommodate the cephalomedullary aiming tube and trochar, which were advanced down to bone. The guide wire was then advanced into the femoral neck and adjusted on AP and lateral fluoroscopy until it was placed near subchondral bone in the center-center position in the femoral head. The depth gauge was used to measure the helical blade length accommodating for depth of guidewire insertion. Next, the drills were used to open the lateral cortex, drill over the wire, and the helical blade was advanced to the appropriate depth by gentle mallet blows. The set screw was engaged and backed off 180 degrees to allow for rotationally- controlled sliding and compression. Traction was released, and the fracture was compressed appropriately via the buttress and compression nut on the jig. The cephalomedullary aiming guide was removed. The distal locking screw guide was inserted through another small incision down the bone. The drill was used to drill for this static locking screw and measure the length. The appropriate length screw was then inserted bicortically. The jig was removed from the nail. Final AP and lateral fluoroscopic images were taken and confirmed appropriate fracture reduction and implant placement. All wounds were copiously irrigated. Deep layers were closed with 2-0 Monocryl buried interrupted. Subcutaneous tissue was closed using 2-0 monocryl in a buried interrupted fashion followed by 3-0 Monocryl subcuticular running. Skin glue was applied to all incisions. Incisions were covered with Mepilex Band- Aids. The patient awoke from anesthesia without complication and was transferred to [facility] recovery room in stable condition. Date of Procedure: 08/05/25
[2025-08-05] MEDS: Lactated Ringers 1,000 ML 30 ML IV ×2 (11:00→20:10)
--- NOTE | 2025-08-05 11:05 | PHA.REVIEW2 ---
Pharmacy Admission Review Admission Clinical Review Admission Pharmacy Review: Benign essential hypertension (Acute) Abnormal head CT (Acute) Closed comminuted intertrochanteric fracture of right femur (Acute) Abnormal CT scan, kidney (Acute) Closed intertrochanteric fracture of right hip (Acute 08/04/25) Diabetes mellitus due to underlying condition, controlled, with diabetic neuropathy, without long-term current use of insulin (Acute) spider venom Allergy (Intermediate, Verified 08/04/25 12:42) Swelling Resuscitation Status Full Code Height 5 ft 4 in Weight 70.7 kg Comments Comments/Follow Ups: POD #0 R hip intramedullary nailing for R hip intertrochanteric fx Pharmacy Admission Review Renal Dosing Renal Dosing: BUN 35 mg/dL (9-23) H 08/05/25 06:17 Creatinine 0.92 mg/dL (0.55-1.02) 08/05/25 06:17 Medications needing adjustments: Reviewed (CrCl 43.27 mL/min) List of meds needing interventions: Current medications are okay Anticoagulation Anticoagulation: Hgb 9.6 g/dL (11.2-15.7) L 10.6 g/dL (11.2-15.7) L 08/05/25 06:17 08/04/25 13:20 Hct 28.6 % (36.0-46.0) L 08/05/25 06:17 Plt Count 216 10^3/uL (130-400) 08/04/25 13:20 INR 1.0 (0.9-1.1) 08/05/25 06:17 Creatinine 0.92 mg/dL (0.55-1.02) 08/05/25 06:17 DVT Prophylaxis: Reviewed (None at this time - OR this morning) Opiate Usage Evaluate Pain Scale/Pains Meds: Reviewed (fentanyl 50 mcg IVP q2h PRN - 200mcg/24hrs) Scheduled Bowel Reg ordered if on Opiates?: No Relevant Labs Relevant Labs: Sodium 141 mmol/L (136-145) 08/05/25 06:17 Potassium 4.0 mmol/L (3.5-5.1) 08/05/25 06:17 Chloride 106 mmol/L (98-107) 08/05/25 06:17 Electrolytes, C-Reactive P, ESR: Reviewed DM Control DM Control: Glucose 152 mg/dL (74-106) H 08/05/25 06:17 DM Control: Reviewed Insulin Dosing, Diabetic Medication: T2DM not on medication Cardiac Review Cardiac Review: Blood Pressure 114/59 0818 Blood Pressure 112/53 0435 Blood Pressure 99/49 0008 BP, HR, EF%: Reviewed (HR WNL) List meds needing interventions: Has order for metoprolol XL 100mg daily QTc Review QTc: Reviewed (436 from 08/04/25) IV to PO Switch IV Medications: Reviewed (Fentanyl) Home Meds Home Med List reviewed: Intervened Relevent Home Meds Not ordered & why?: clopidogrel (on hold per H+P), HCTZ (on hold per H+P), lisinopril (on hold per H+P), vitamin D3 Simvastatin on home med list but wasn't ordered - spoke to provider, order put in Current Meds Current Medication Order Review: Reviewed Comments Comments/Follow Ups: POD #0 R hip intramedullary nailing for R hip intertrochanteric fx
[2025-08-05] MEDS: ceFAZolin 2 GM/50 ML BAG 50 GM (11:23)
[2025-08-05] MEDS: TRANEXAMIC ACID/SOD. CHL. 1,000 MG/100 ML BAG 100 MG (11:25)
[2025-08-05] MEDS: Bupivacaine 0.25% Pres-Free W/EPI 30 ML VIAL ×2 (11:52→11:54)
--- NOTE | 2025-08-05 13:02 | W.ANESPOSTOP ---
Postoperative Evaluation Date, Time and Location Date Performed: 08/05/25 Time Performed: 13:02 Patient Location: PACU Vital Signs Most Recent Imported Vital Signs: Most Recent Vital Signs Temp Pulse Resp BP Pulse Ox 36.6 C 78 27 H 134/56 L 96 08/05/25 12:51 08/05/25 12:55 08/05/25 12:55 08/05/25 12:51 08/05/25 12:55 Could be ready for PT eval late Aug 05, likely to [facility] (as had been planned for Aug 04 regardless), may be ready to go Aug 06 pending recovery from surgery. Pain Score Most Recent Pain Score: Most Recent Pain Score Pain Level [Right Hip] 10 08/04/25 19:31 Pain Level 8 08/04/25 23:20 Assessment Mental Status: Awake (Alert & Oriented to Patient Baseline) Airway and Respiratory Function: Patent airway with normal (patient baseline) respiratory exam Cardiovascular Function: Hemodynamically Stable Hydration Status: Adequately Hydrated Nausea & Vomiting: No Nausea or Vomiting Pain: Pain is tolerable per patient Peripheral Nerve Block: Patient did not receive a nerve block
[2025-08-05] MEDS: Normal Saline Flush 10 ML SYR (14:32)
--- NOTE | 2025-08-05 15:06 | CHAPLAIN ---
I had a brief visit with Viry. She was sitting up in bed. When I introduced myself and explained my role, Viry said is fine and in touch with family. Her is currently at [facility] and according to Care Management notes, Viry is making plans to be there as well.
--- NOTE | 2025-08-05 15:25 | W.PM.PROGNOT ---
Date of Service Date of service: 08/05/25 Time of Service: 15:25 Assessment and Plan Assessment and plan (1) Closed comminuted intertrochanteric fracture of right femur: Status: Acute Assessment and plan: 80-year-old female postop day #0 status post Right Hip IMN Resting pleasantly uncomfortably in PACU. Not complaining of any pain. Hip dressings clean dry intact. Foot x-rays just done, and interpreted by me negative for any toe fracture. Left hand is cooler than the contra right hand. Both have a similar feeling 2+ radial pulse. Capillary refill seems similarly slow?sluggish on both sides. Orders placed- Complete 24 hours postoperative antibiotics Physical therapy: Weightbearing as tolerated with assist device Per hospitalist- Discontinue Leias catheter postop day #1 Pain control-Multimodal May start chemical DVT prophylaxis tomorrow assuming hemodynamically stable: MUST weigh risks and benefits of any additional medications that may cause bleeding with heightened fall risk and potential heightened intracranial hemorrhage risk. Resuming clopidogrel dose may suffice. Continue mechanical DVT prophylaxis with SCDs and/or VIJI hose Discharge when medically appropriate My office messaged- Follow-up with Dr. Neff outpatient [facility] in about 2-3 weeks DISCHARGE INSTRUCTIONS (please update & copy into discharge document) Surgery: Right hip IMN 08/05/25 Activity: Weightbearing as tolerated with walker. Prescriptions per primary medical team Dressings: Leave dressing in place for 10-14 days, and then may remove and leave skin glue open to air. Keep clean and dry at all times. Follow-up: About 2-[address] Neff or orthopedic physician service assistant Please call [facility] during business hours with any questions or concerns. Objective Last Vital Signs Temp 98.1 F 08/05/25 13:42 Pulse 74 08/05/25 13:42 Resp 23 08/05/25 13:42 BP 121/39 L 08/05/25 13:42 Pulse Ox 93 08/05/25 13:42 Laboratory Results - last 24 hr 08/04/25 08/04/25 08/05/25 16:15 16:55 06:17 Hgb 9.6 L Hct 28.6 L PT 10.3 INR 1.0 Sodium 141 Potassium 4.0 Chloride 106 Carbon Dioxide 26.5 Anion Gap 8.5 BUN 35 H Creatinine 0.92 Est GFR (CKD-EPI 2020) 58.68 Glucose 152 H Calcium 8.7 Urine Color Yellow Urine Clarity Clear Urine pH 5.5 Ur Specific [place] <= 1.005 Urine Protein Negative Urine Ketones Trace H Urine Blood Trace-intact H Urine Nitrite Negative Urine Bilirubin Negative Urine Urobilinogen 0.2 Ur Leukocyte Esterase Negative Urine RBC 0-2 Urine WBC Negative Ur Epithelial Cells Rare Urine Crystals Negative Urine Bacteria Rare Urine Casts Negative Urine Mucus Negative Urine Other Rare Transitional Ur Culture Indicated? No Urine Glucose Negative ABO/Rh O Positive Antibody Screen NEGATIVE VTE Prohylaxis Risk Level: Moderate/High Risk Contraindications: Active bleed/high bleed risk and Other (pre-operative, possible head bleed) Prophylaxis: Mechanical Time Spent with Patient Time Spent with Patient: <25 minutes Time was spent: care coordination
[2025-08-05] MEDS: ceFAZolin 1 GM/50 ML BAG IVPB (17:49)
[2025-08-05] MEDS: Normal Saline Flush 10 ML SYR IVP (17:49)
[2025-08-05] MEDS: Simvastatin 40 MG TAB 80 MG PO (20:07)
[2025-08-06] MEDS: ceFAZolin 1 GM/50 ML BAG IVPB ×2 (02:31→10:08)
[2025-08-06 03:29] VITALS: BP 123/71; PULSE 86; RESP 16; TEMP 36.6; O2SAT 94
[2025-08-06] MEDS: fentaNYL 100 MCG/2 ML VIAL 50 MCG IVP ×2 (05:37→09:09)
[2025-08-06] MEDS: Normal Saline Flush 10 ML SYR IVP ×5 (07:27→13:55)
--- NOTE | 2025-08-06 07:55 | PGE_ITS ---
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 neurosurgery consulted, no intraoperative concerns. Advised holding anticoagulation (2) Closed comminuted intertrochanteric fracture of right femur: Status: Acute Assessment and plan: -Orthopedic surgery performed R intramedullary nailing on 08/05, no intraoperative events. 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 measuring 2 by 2.5 x 3.8 cm -Not discussed with patient on admission due to her confusion -outpt f/u recommended w PCP (4) Diabetes mellitus due to underlying condition, controlled, with diabetic neuropathy, without long-term current use of insulin: Status: Acute Assessment and plan: -Last known A1C 6.3 in February 2025, not on any meds at this time (5) Benign essential hypertension: Status: Acute Assessment and plan: -Normotensive on admission -Continue home dosing of metoprolol succinate -Hold home HCTZ, lisinopril Subjective Subjective Interval history since last seen: No acute events reported overnight. Viry reports she is feeling well today, but is c/o R hip pain while trying to get up for ambulation with PT. She reports she is otherwise feeling well, ate breakfast this AM without difficulty. Denies fever/chills, chest pain, n/v, abdominal pain, bleeding from bandage, RLE numbness/tingling. Exam Const General: cooperative, healthy appearing, comfortable and no acute distress Nutritional Appearance: average body habitus and well nourished Orientation: alert [facility] Head: normal to inspection and atraumatic Ears: hearing grossly normal bilaterally General nose exam: external nose normal Face and sinus: normal facial exam Resp Effort & Inspection: normal respiratory effort and able to speak in complete sentences Auscultation: clear to auscultation bilaterally Cardio Rate: regular rate Rhythm: regular rhythm GI Inspection: normal to inspection Palpation: soft and nontender Skin General skin exam: other (clean dry bandage intact to R proximal lateral thigh) Neuro General: patient alert, tone normal and moves all extremities Motor: muscle tone normal throughout and other (R sided LE paresis, 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) Sensory Exam: no sensory deficits noted Objective Last Vital Signs Temp 97.9 F 08/06/25 03:29 Pulse 86 08/06/25 03:29 Resp 16 08/06/25 03:29 BP 123/71 08/06/25 03:29 Pulse Ox 94 08/06/25 03:29 VTE Prohylaxis Risk Level: Moderate/High Risk Contraindications: Active bleed/high bleed risk and Other (pre-operative, possible head bleed) Prophylaxis: Mechanical Time Spent with Patient Time Spent with Patient: >50 minutes Time was spent: preparing to see the patient(eg.review tests), obtaining and/or reviewing separately otained hiistory, ordering medications,tests, procedures, referring, communicating with other health childcare worker, indepentently interpreting results, counseling the patient and care coordination
[2025-08-06 08:02] VITALS: BP 128/79; PULSE 80; RESP 16; TEMP 36.3; O2SAT 94
--- NOTE | 2025-08-06 09:33 | PDOC.CMPRO ---
Date of service: 08/06/25 Time of Service: 09:33 Care Management Progress Note Progress Note Text Progress Note Text: Viry was transferring from chair to bed with PT when CM went to see her. This morning PT had attempted to get her OOB and ambulating, however Viry was in too much pain to participate. This afternoon she stated that her pain was much better and she was able to at least stand and pivot. Viry's Sridhar is at [facility]. Viry has a bed offer there for next week, hopefully Saturday. Sridhar called CM today for an update and to communicate his desire to see her as soon as possible. Viry shared that it has been weeks since they have been together. Discharge Potential Discharge Needs: Other (SNF for short term rehab) Anticipated Barriers to Discharge: None Identified Patient/Family Education Needs: Review discharge instructions, discuss Ask Me Three Transportation: RCT Plan: Viry will likely be transferred to [facility] for short term rehab on Saturday as long as she continues to improve. She will follow up with the facility providers and plan of care and transport via RCT. CM will follow and continue to support discharge planning efforts. Social Determinants of Health Screening Social Determinants of health last assessed in clinic: 08/06/25 Will the Patient Participate in the Screening?: Yes Do you worry about having a steady place to live?: yes What is your living situation today?: I have housing today, but am worried about losing it Problems where you live: no known problems In the past 12 months, have you had to go without electric, gas, oil or water in your home?: yes 1. Within the past 12 months, we worried whether our food would run out before we got money to buy more.: Never true 2. Within the past 12 months, the food we bought just didn't last and we didn't have money to get more.: Never true Has lack of transportation kept you from medical appointments or from doing things needed for daily living?: yes Has anyone in your life made you feel unsafe or unsupported?: no How hard is it for you to pay for the very basics like food, housing, medical care, and heating? Would you say it is:: Not hard at all Do you want help finding or keeping work or a job?: I do not need or want help If for any reason you need help with day-to-day activities such as bathing, preparing meals, shopping, managing finances, etc., do you get the help you need?: I could use a little more help How often do you feel lonely or isolated from those around you?: Never Do you speak a language other than [place] at home?: No Does the patient want assistance with any of the above?: No Health Related Social Needs Health related social needs: housing instability, housed, with risk of homelessness (Z59.811), transportation insecurity (Z59.82), material hardship(utilities) (Z59.12) and problems with daily activities (Z73.9) Health related social needs details: Pt will need assistance with ADLs due to recent fracture from a fall prompting this admission
--- NOTE | 2025-08-06 09:37 | IN_ITS ---
PT Notes Visit Reasons: Right Hip Fracture Physical Therapy Inpatient Initial Evaluation Date: 08/06/2025 Referring Doctor: Regis Neff MD PT Orders: PT CONSULT: eval and treat Precautions: Fall. Standard. Activity as tolerated. WBAT, Dementia Patient Profile/Admitting Diagnosis: 80-year-old pt admitted after falling at home and neighbors found her. Pt Fx her right hip, specifically closed comminuted intertrochanteric Fx of R hip. Pt to OR on 08/05/2025 for IM Nailing under general anesthisa. Post op uncomplicated. Pt is now Post op #1. PMHX: Benign essential hypertension (Acute) Abnormal head CT (Acute) Closed comminuted intertrochanteric fracture of right femur (Acute) Abnormal CT scan, kidney (Acute) Fall (Acute) Intracranial bleed (Acute) Trochanteric fracture of right femur (Acute) Closed intertrochanteric fracture of right hip (Acute 08/04/25) Short-term memory loss (Chronic) Due to stroke in 2011. They feel it is stable.Carotid stenosis, right (Acute) Diabetes mellitus due to underlying condition, controlled, with diabetic neuropathy, without long-term current use of insulin (Acute) Carotid occlusion, left (Chronic) Essential hypertension (Chronic 07/27/13) Hyperlipidemia (Chronic 12/19/11) Vitamin D deficiency (Chronic) Medical History Hx of ischemic left MCA stroke (~2013) 09-10-2011: Left MCA infarct sec. to thrombus L ICA (R)hemiparesis,expressive aphasia/(R) visual field cut/impaired mobility : TIA Chronic anticoagulation (03/22/14) CVA + TIA ,goal inr 2-3; changed to plavix 05/2022 Surgical History Status post fracture of left tibia Social History/Home Situation: Pt lives at home with who is normally her security management specialist. Pt has been at [facility] for a couple of days and was in the hospital [facility] prior to that. Pt has 2 DIMITRI with a railing on both sides. Pt doesn?t cook for herself and her neighbors deliver her food three times a day. Equipment Owned/DME: none Subjective: Pt reported feeling better than yesterday, but still in pain with movement. Pt reported her foot was also in a great deal of pain. Objective: General Observation: Pt laying in bed just finished breakfast with compression cuffs around B calves. Pt had B plantar flexor posturing. Mental Status: Alert and oriented as to person, place, time, and purpose. Able to pay attention, focus, Pt needs extra time to respond and sometimes needs multiple verbal cueing to follow directions. Pain: 4/10 in lying in bed, 8/10 during transitions, but quickly reduced (about 10 seconds) Vital Signs: monitored by nursing Palpation: TTP R. Anterior talofibular ligament ROM: Right Upper Extremity: Grossly WFL. Left Upper Extremity:? Grossly WFL. Right Lower Extremity: Grossly WFL. Except Hip flex, abduction, adduction, ankle dorsi flex to neutral Left Lower Extremity: Grossly WFL. Except ankle dorsi flex to neutral Strength: Right Upper Extremity: Grossly -4/5. Except shoulder flex -3/5 Left Upper Extremity: Grossly -4/5. Except shoulder flex -3/5 Right Lower Extremity: Hip Flex 2/5, Hip abduct 2/5, Knee flex 2+/5 Knee ext 3/5, Ankle Plantarflexion 3+/5, Ankle Dorsi Flex 3/5 Left Lower Extremity: Grossly -4/5. Bed Mobility/Transfers: Rolling R/L Min A with verbal and tactile cues for safe/correct technique Supine to sit with Max A of 2 with verbal and tactile cues for safe/correct technique Sit to supine with Max A of 2 with verbal and tactile cues for safe/correct technique Sit to stand with FWW Mod A of 2 with verbal and tactile cues for safe/correct technique Stand to sit with FWW Min A of 1 with verbal and tactile cues for safe/correct technique Gait: Not assessed at this time due to pain Balance: Static Sitting: fair Dynamic Sitting: poor Static Standing: poor Dynamic Standing: Poor w/UE support Special Tests: Right ankle draw test negative Mobility Limitations Standardized Measure [facility]-PAC 6 clicks Basic Mobility Inpatient Short Form: Raw Score: 9? CMS Score: 79.59% deficit? Informed Consent/Education:? Patient was instructed in purpose of PT consult and plan of care. Agreeable to proceed with established PT POC to achieve personal goals. Therapeutic Activity: Sit to stand FWW Mod A of 1: Pt performed 4 sit to stands x2 sec with a break in between each rep, as the pain was affecting her ability to stand for long periods at a time. Rolling in Bed to the L/R: Min A of 1. PT provided active verbal and tactile cueing for hand placement, and proper motor recruitment to push through LLE. Assessment: Pt was in a significant amount of pain with movement. During the transfer from supine to sit pt hand a great increase in pain in the right hip. So much so that the pt tried to throw themselves backwards to lay down. PT prevented this by holding onto the patient as this would have caused more pain, and been dangerous for the patient. Once at the EOB with an elevated surface pt was able to sit to stand FWW. Pt could not hold this position for long d/t the pain. Pt demonstrated and coached the pt to shift their weight to their left side and push through the FWW to reduce the amount of pressure she was applying to her right side. Pt was able to continue to perform sit to stands, but weren?t able to shift their weight to the left. PT attempted to set up for a stand pivot from bed to recliner. However, pt was unable to follow directions of hand placement and anterior weight shift. Nursing and PT spoke about which medication the pt could be administered at the moment for the pain. Nursing ended up provided the pt with the prescribed fentanyl. PT waited pt to feel the effects of the medication. After about 5 mins, pt became dizzy and had trouble sitting at the EOB. It was then determined to put the patient back to bed, as it would have been unsafe to try and ambulate the patient. Pt needed maximum verbal cueing today, as pt had difficulty following and understanding task. Next session, PT will attempt to have the pt perform step turn. Allowing her to get out of the bed and increase her pain tolerance as this pain tolerance is her biggest limiting factor at this moment in time. Patient presents with clinical signs and symptoms consistent with current/admitting diagnoses that have resulted to mobility limitations, gait instability, generalized weakness, and overall ADL decline as demonstrated by the following impairment level findings: 1.? Decreased strength to B UE/LE major muscle groups 2.? Impaired sitting/standing balance 3.? Impaired activity tolerance 4.? Limitation of joint range of motion in R Hip 5.? Pain 6. impaired processing of information Impairments are contributing to the following functional limitations: 1.? Decline in bed mobility skills 2.? Decline in transfer skills 3.? Difficulty with ambulation without assistive device and physical assistance 4.? Increased completion time for mobility ADL performance 5.? Increased risk for falls 6.? Difficulty with managing steps alone safely Patient is assessed as a Mod complexity based on the following: History:80]-year-old female with past medical history as indicated above Examination: Demonstrable impairment in strength, balance, and mobility level with underlying impairments and functional limitations as exhibited above as well as deficit score of 79.59% utilizing the [facility] Mobility Inpatient Short Form Presentation: evolving Decision Making: Moderate complexity Goals: Goals X1 week 1. Supine-Sit Supervision 2. Sit-Supine Supervision 3. Sit-Stand CGA w/FWW 4. Stand-Sit independent with supervision 5. Bed-Chair CGA FWW 6. Chair-Bed CGA with FWW 7. gait on level surface with use of CGA for at least 45 feet without report of pain 8. min A stair negotiation while holding onto 2 rails for at least 4 steps without report of pain nor dyspnea 9. Good static and dynamic standing balance/tolerance Plan of Care/Treatment Plan: 1-2x/day, 7 days/week x 1 week. Plan of care has been reviewed with the [employer] providing the service under Physical Therapy direction. Initiate Physical Therapy intervention for pain management as needed, strengthening, bed mobility, transfers, gait, stairs, balance training, and use of assistive device. DISCHARGE RECOMMENDATIONS: ?SNF for continued rehabilitation, specifically with her to ensure they are together. TREATMENT CODE/TIME: 72125 , 71063/ [id number] Thank you for the opportunity to participate in the care of this patient. Written by: AYDEE Canchola Supervised by: Grace Cosme, PT [facility] [place], [place]
[2025-08-06] MEDS: Metoprolol CR 100 MG TABCR PO (10:08)
[2025-08-06] MEDS: Clopidogrel 75 MG TAB PO (10:08)
[2025-08-06] MEDS: oxyCODONE 5 MG TAB PO ×3 (10:08→20:23)
[2025-08-06 11:04] VITALS: PULSE 82; RESP 16; TEMP 37.1; O2SAT 91
[2025-08-06 11:11] VITALS: BP 108/48
[2025-08-06] MEDS: Ketorolac 30 MG/ML VIAL IVP (13:55)
[2025-08-06] MEDS: Acetaminophen 325 MG TAB 650 MG PO ×2 (13:55→20:23)
[2025-08-06] MEDS: Polyethylene Glycol 3350 17 GM PACKET PO (13:55)
--- NOTE | 2025-08-06 14:42 | W.PM.PROGNOT ---
Date of Service Date of service: 08/06/25 Time of Service: 14:42 Assessment and Plan Assessment and plan (1) Closed comminuted intertrochanteric fracture of right femur: Status: Acute Assessment and plan: 80-year-old female postop day #1 status post Right Hip IMN Patient reports that she is doing better and has less pain today compared to yesterday. Resting comfortably in chair working with PT on transfers and active-assisted motion. Right hip dressing is clean, dry, and intact. Demonstrates active dorsiflexion and plantarflexion. Tolerates some active-assisted hip and knee flexion. Calf is soft and nontender. Sensation intact to light touch. Per primary medical team- multimodal pain control Consider chemical DVT prophylaxis: MUST weigh risks and benefits of any additional medications that may cause bleeding with heightened fall risk and potential heightened intracranial hemorrhage risk. Resuming clopidogrel dose may suffice. Defer to hospitalist discussion with neurosurgery at [facility]. Continue mechanical DVT prophylaxis with SCDs and/or VIJI hose Discharge when medically appropriate Follow-up with Dr. Neff outpatient [facility] in about 2-3 weeks DISCHARGE INSTRUCTIONS (please update & copy into discharge document) Surgery: Right hip IMN 08/05/25 Activity: Weightbearing as tolerated with walker. Prescriptions per primary medical team Dressings: Leave dressing in place for 10-14 days, and then may remove and leave skin glue open to air. Keep clean and dry at all times. Follow-up: About 2-[address] Neff or orthopedic physician campaign assistant Please call [facility] during business hours with any questions or concerns. Objective Last Vital Signs Temp 98.8 F 08/06/25 11:04 Pulse 82 08/06/25 11:04 Resp 16 08/06/25 11:04 BP 108/48 L 08/06/25 11:11 Pulse Ox 91 L 08/06/25 11:04 VTE Prohylaxis Risk Level: Moderate/High Risk Contraindications: Active bleed/high bleed risk and Other (pre-operative, possible head bleed) Prophylaxis: Mechanical Time Spent with Patient Time Spent with Patient: <25 minutes Time was spent: care coordination
--- NOTE | 2025-08-06 15:05 | PT.INTREAT ---
PT Notes Visit Reasons: Right Hip Fracture Date: 08/06/2025 PRECAUTIONS: Fall. Standard. Activity as tolerated. WBAT, Dementia SUBJECTIVE: Pt in bed when approached for therapy this afternoon, pt agrees to participating with therapy intervention. OBJECTIVE: ? ?Compression cuff on both leg, collier catheter ? PAIN: Right leg pain VITALS: monitored by nursing Therapeutic Activities 10215: Direct one-on-one instruction in dynamic activities to improve functional performance. ?? BED MOBILITY/TRANSFERS? Rolling L/R: max a Supine-sit: ?max A? Sit-supine: ? max A ? Sit-stand: ? max A ? Stand-sit: ??max A ? Bed-Chair:? ?max A ? Chair-bed: max A Provided skilled cues and instruction on performance and technique throughout. Gait Training 23025: Direct one-on-one instruction and skilled instruction in: Employing an assistive device Modified weight-bearing status Movement sequencing Turning and movement with proper form Provided verbal cues for equipment management and technique Provided instruction in gait pattern Patient education regarding pacing and breathing techniques to maximize activity tolerance? GAIT? Assistive Device: ?? FWW? Weight bearing: WBAT RLE Assist: ? max A? Distance:?? stand pivot transfer ? Deviation: ?antalgic noted? Therapeutic Exercises 33017: Direct one-on-one instruction in therapeutic exercises to develop strength, endurance, range of motion and flexibility. Exercises Seated AAROM SLR [id number] Seated AAROM knee to chest [id number] Seated AAROM Clamshell [id number] Seated SAQ [id number] Seated ankle inversion /eversion 05i2tzf Seated ankle dorsi/plantar flexion Provided skilled instruction in proper exercise performance Provided skilled manual cues to facilitate proper muscle recruitment and/or form: Neuromuscular Re-education 26896: Activities that facilitate re-education of movement balance, posture, coordination, and proprioception or kinesthetic sense, requiring skilled tactile and verbal cues Exercises/techniques: Sitting unsuported at the EOB ?5mins doing weight shifting, fwd/bwd/side Standing static balance activity 5mins ASSESSMENT:?pt initially apprehensive but was able to calm down after transfer training going from bed to recliner, pt able to perform return transfer going from recliner to bed after doing seated AAROM. pt situated in bed for safety and comfort. pt reports pain subsided after getting situated in bed. PLAN: Continue with balance training, global strengthening and general conditioning for improved safety, mobility and activity tolerance until pt is ready for DC. TREATMENT CODE/TIME: 45810s5, [id number], [id number] 45mins (2:15-3:00pm)
[2025-08-06] MEDS: Simvastatin 40 MG TAB 80 MG PO (20:23)
[2025-08-06 20:27] VITALS: BP 125/47; PULSE 78; RESP 16; TEMP 36.6; O2SAT 89
[2025-08-07 04:22] VITALS: BP 104/52; PULSE 72; RESP 16; TEMP 36.1; O2SAT 94
[2025-08-07 07:43] VITALS: BP 126/51; PULSE 68; RESP 16; TEMP 36.5; O2SAT 93
[2025-08-07] MEDS: Clopidogrel 75 MG TAB PO (07:47)
[2025-08-07] MEDS: Metoprolol CR 100 MG TABCR PO (07:48)
[2025-08-07] MEDS: fentaNYL 100 MCG/2 ML VIAL 50 MCG IVP (09:55)
[2025-08-07] MEDS: oxyCODONE 5 MG TAB PO ×3 (10:45→19:53)
--- NOTE | 2025-08-07 11:59 | PT.INTREAT ---
PT Notes Visit Reasons: Right Hip Fracture Inpatient Physical Therapy Treatment Note [facility] Date: 08/07/25 PRECAUTIONS: Fall. Standard. Activity as tolerated. WBAT, Dementia AM Session: SUBJECTIVE: Patient states she is in excruciating pain. Was given pain medicine prior to initiation of physical therapy. States she does not want to stand up secondary to her pain but is agreeable to performing some bed exercises. 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 OBJECTIVE: ? ?Compression cuff on both leg, collier catheter ? PAIN: Right leg pain VITALS: monitored by nursing ? Therapeutic Exercises 81859: Direct one-on-one instruction in therapeutic exercises to develop strength, endurance, range of motion and flexibility. Exercises Supine AAROM SLR [id number] Supine AAROM hip flexion [id number] Supine active assisted abduction 10 x1 set Supine bilateral SAQ [id number] Supine bilateral ankle inversion /eversion [id number] Supine bilateral ankle dorsi/plantar flexion 10 X1 set Supine quad sets 2 x 10 Provided skilled instruction in proper exercise performance Provided skilled manual cues to facilitate proper muscle recruitment and/or form: ASSESSMENT:?Patient in obvious distress with regards to pain. Nursing administered additional pain medication (oxycodone). Very hesitant with any mobility of the right hip. PLAN: Continue with balance training, global strengthening and general conditioning for improved safety, mobility and activity tolerance until pt is ready for DC. Will attempt some bed mobility and sit to stand transfers and attempt some steps this afternoon. PM Session Therapeutic Activities 04969: Direct one-on-one instruction in dynamic activities to improve functional performance. ?? BED MOBILITY/TRANSFERS? Rolling L/R: max a Supine-sit: ?max A? Sit-supine: ? max A ? Sit-stand: ? max A ? Stand-sit: ??max A ? Bed-Chair:? ?max A ? Chair-bed: max A Provided skilled cues and instruction on performance and technique throughout. ? ? Manual therapy 97262 X1 Active assistive range of motion throughout right lower extremity including gentle hip flexion, hip abduction, knee flexion, ankle plantar and dorsiflexion ? Therapeutic Exercises 30449: Direct one-on-one instruction in therapeutic exercises to develop strength, endurance, range of motion and flexibility. Exercises Supine AAROM SLR [id number] Supine AAROM hip flexion [id number] Supine active assisted abduction 10 x1 set Supine bilateral SAQ 69f0xcw Supine bilateral ankle inversion /eversion 36p7xii Supine bilateral ankle dorsi/plantar flexion 10 X1 set Supine quad sets 2 x 10 Provided skilled instruction in proper exercise performance Provided skilled manual cues to facilitate proper muscle recruitment and/or form: Assessment: Unable to tolerate any functional mobility even with max assist to attempt to sit and move leg into bedside. This is despite having been premedicated for pain. Patient outright refused any further mobility training activities secondary to pain complaints. Really needs to start working on addressing her lack of mobility even to get her working on some sit to stand transfers and weightbearing as tolerated through right lower extremity. She does appear to be somewhat confused when attempting to follow direction. TREATMENT CODE/TIME: AM Session - [id number] - 25 minutes, (9:35-10:00m) PM Session - [id number] 25 minutes, 86149 x1 -10 minutes (3:20-3:55pm)
--- NOTE | 2025-08-07 13:55 | W.PM.PROGNOT ---
Date of Service Date of service: 08/07/25 Time of Service: 08:00 Assessment and Plan Assessment and plan (1) Abnormal head CT: Status: Acute Assessment and plan: -Possible head injury with no LOC upon falling -Initial CT head on 08/04 showing multiple old infarcts, with left frontal lobe attenuation near left lateral ventricle concerning for hemorrhage vs calcification; no changes on repeat CT performed 8 hours later, [facility] neurosurgery consulted, no intraoperative concerns. Advised holding anticoagulation (2) Closed comminuted intertrochanteric fracture of right femur: Status: Acute Assessment and plan: -Orthopedic surgery performed R intramedullary nailing on 08/05, no intraoperative events. -Ancef given x 24 hours -Pain control with fentanyl 50 mcg IV PRN, oxycodone PO, and tylenol PO -pt attempted OOB with PT, plan to discharge to SNF for rehab Likely has placement for SaturdayAug 09 (3) Abnormal CT scan, kidney: Status: Acute Assessment and plan: -Incidental CT finding: There is an exophytic lobulated and enhancing mass from the posterior medial aspect of the right kidney measuring 2 by 2.5 x 3.8 cm -Not discussed with patient on admission due to her confusion -outpt f/u recommended w PCP (4) Diabetes mellitus due to underlying condition, controlled, with diabetic neuropathy, without long-term current use of insulin: Status: Acute Assessment and plan: -Last known A1C 6.3 in February 2025, not on any meds at this time (5) Benign essential hypertension: Status: Acute Assessment and plan: -Normotensive on admission -Continue home dosing of metoprolol succinate -Hold home HCTZ, lisinopril Subjective Subjective Interval history since last seen: Ms. Ward has more pain today after cessation of fentanyl. Increasing PO pain regimen. Unable to work with PT today due to pain. Exam Narrative Exam Narrative: General: This is a pleasantly confused elderly woman in no distress HEENT: Normocephalic, atraumatic CV: RRR Resp: CTAB Abd: soft, NTND. Right flank ecchymosis. MSK: voluntary motion x4. Right hip surgical sites c/d/i Neuro: awake, alert, chronic right hemiparesis Objective Last Vital Signs Temp 36.5 C 08/07/25 07:43 Pulse 68 08/07/25 07:43 Resp 16 08/07/25 07:43 BP 126/51 L 08/07/25 07:43 Pulse Ox 93 08/07/25 07:43 VTE Prohylaxis Risk Level: Moderate/High Risk Contraindications: Active bleed/high bleed risk and Other (pre-operative, possible head bleed) Prophylaxis: Mechanical Time Spent with Patient Time Spent with Patient: 25-34 minutes Time was spent: preparing to see the patient(eg.review tests), obtaining and/or reviewing separately otained hiistory, ordering medications,tests, procedures, referring, communicating with other health child care attendant school, indepentently interpreting results, counseling the patient and care coordination
[2025-08-07] MEDS: oxyCODONE 5 MG TAB 2.5 MG PO (14:56)
[2025-08-07 16:14] VITALS: BP 113/64; PULSE 77; RESP 16; TEMP 37.2; O2SAT 94
[2025-08-07 19:48] VITALS: BP 100/43; PULSE 80; RESP 16; TEMP 37.5; O2SAT 91
[2025-08-07] MEDS: Normal Saline Flush 10 ML SYR IVP (19:52)
[2025-08-07] MEDS: Acetaminophen 325 MG TAB 650 MG PO (19:54)
[2025-08-07] MEDS: Simvastatin 40 MG TAB 80 MG PO (19:54)
[2025-08-07] MEDS: Polyethylene Glycol 3350 17 GM PACKET PO (20:28)
[2025-08-08] MEDS: oxyCODONE 5 MG TAB PO ×6 (01:43→22:21)
[2025-08-08] MEDS: Acetaminophen 325 MG TAB 650 MG PO ×3 (02:11→20:12)
[2025-08-08] MEDS: Tamsulosin 0.4 MG CAPCR PO ×2 (02:43→20:12)
[2025-08-08 03:05] VITALS: BP 90/52; PULSE 71; RESP 16; TEMP 37.6; O2SAT 93
[2025-08-08] MEDS: Normal Saline 500 ML 999 ML IV (03:54)
[2025-08-08 06:15] VITALS: BP 122/60; PULSE 77; RESP 16; TEMP 37; O2SAT 93
[2025-08-08 07:35] VITALS: BP 104/63; PULSE 76; RESP 16; TEMP 37; O2SAT 93
[2025-08-08] MEDS: Clopidogrel 75 MG TAB PO (07:56)
--- NOTE | 2025-08-08 09:00 | DI.RAD_ITS ---
Exam(s) XR HIP RT COMPLETE AP PELVIS EXAM: XR HIP RT COMPLETE AP PELVIS INDICATION: Right IT hip fx. COMPARISON: CR XR PELVIS AP from 08/04/2025 XA XR HIP RT IN OR from 08/05/2025 TECHNIQUE: 2D digital imaging was performed. Three views. FINDINGS: There has no been no change in the internal fixation hardware in the proximal right femur. There is no evidence of acute fracture. The lesser trochanter is displaced which appears unchanged from intraoperative images. Gas in the soft tissues consistent with recent surgery. Vascular calcifications. Calcified fibroid. IMPRESSION: Status post ORIF of right proximal femoral fracture. No evidence of acute fracture. The preliminary [facility] report was reviewed. DATA REPOSITORY: RADIATION DOSE DELIVERED:
--- NOTE | 2025-08-08 09:52 | DI.[facility]_ITS ---
PROCEDURE INFORMATION: Exam: XR Right Hip Exam date and time: 08/08/2025 9:32 AM Age: 80 years old Clinical indication: Other: Post op right hip FX; Prior surgery; Surgery date: 3-7 days post-operative TECHNIQUE: Imaging protocol: Radiologic exam of the right hip. Views: 2 or 3 views hip with pelvis when performed. COMPARISON: XA XR HIP RT IN OR 08/05/2025 11:33 AM FINDINGS: Bones/joints: Compression screw and intramedullary dasha in the right hip. Fracture fragments are in good alignment. Soft tissues: Unremarkable. Organs: Calcified fibroid in the pelvis IMPRESSION: Compression screw and intramedullary dasha in the right hip. Fracture fragments are in good alignment. Dictated and Authenticated by: Roxanne Patricia MD. Orderin Tawanda Stacy MD
[2025-08-08] MEDS: oxyCODONE 10 MG TAB 5 MG PO (10:01)
--- NOTE | 2025-08-08 11:57 | PTTR_ITS ---
PT Notes Visit Reasons: Right Hip Fracture Inpatient Physical Therapy Treatment Note [facility] Date: 08/09/25 PRECAUTIONS: Weightbearing as tolerated, fall precautions. SUBJECTIVE: Viry states that she is afraid to work on transfers and ambulation secondary to pain. She is reminded that she was just given a higher dose pain med an hour prior to PT so this should help. OBJECTIVE: IV left arm ? PAIN: 2/10 lying in bed, 10/10 with functional mobility training VITALS: Monitored via nursing ? Therapeutic Activities (65787j[]): Direct one-on-one instruction in dynamic activities to improve functional performance. ? BED MOBILITY/TRANSFERS? Rolling L/R: Max assist x 1 Supine-sit: Max assist x 3? Sit-supine: ? Sit-stand: Moderate assist x 2? Stand-sit: Moderate assist x 2 ? Bed-Chair: Moderate assist x 2 ? Chair-bed: [] Provided skilled cues and instruction on performance and technique throughout. Gait Training (74413k0): Direct one-on-one instruction and skilled instruction in: [x] employing an assistive device [x] modified weight-bearing status [x] movement sequencing [x] turning and movement with proper form [x] Provided verbal cues for equipment management and technique [x] Provided instruction in gait pattern [x] Patient education regarding pacing and breathing techniques to maximize activity tolerance? GAIT? Assistive Device: Front wheel walker ? Weight bearing: Weightbearing as tolerated right lower extremity Assist: Moderate x 2 with constant verbal cueing for proper hand positioning on walker, verbal cueing for proper standing posture as she tends to excessively anteroflex ? Distance:?8 feet with turn 180 degrees and 5 feet to bedside chair? Deviation: Shuffling. No step through pattern. Antalgic with weightbearing during right stance phase. ? Therapeutic Exercises (31780q1): Direct one-on-one instruction in therapeutic exercises to develop strength, endurance, range of motion and flexibility. Exercises Seated hip flexion 2 x 10 left 1 x 10 right active assisted Long arc quads 2 x 10 left, 2 x 10 right active assisted Seated hip flexion 2 x 10 left, 1 x 10 right active assisted moderate assist Ankle pumps x 20 Seated hip adduction isometrics 10 x 3-second hold Seated left hip abduction isometric 10 x 3-second hold attempted on right but too painful. Provided skilled instruction in proper exercise performance and skilled manual cues to facilitate proper muscle recruitment and/or form. Upon completion of PT patient was left in bedside recliner with chair alarm activated and nursing notified. She sat in chair for lunch and upright position and relative comfort. ASSESSMENT:? Pain continues to be a significant obstacle for this patient. She required significant assistance for all functional mobility training. Seems confused with hand positioning when trying to transfer sit to stand and with bed mobility. Required verbal cues to avoid using hands on walker to assist transfer sit to stand. PM SESSION SUBJECTIVE: Viry states that she is afraid to work on transfers and ambulation secondary to pain. She is reminded that she was just given a higher dose pain med an hour prior to PT so this should help. OBJECTIVE: IV left arm ? PAIN: 2/10 lying in bed, 10/10 with functional mobility training VITALS: Monitored via nursing ? Therapeutic Activities (41149n3): Direct one-on-one instruction in dynamic activities to improve functional performance. ? BED MOBILITY/TRANSFERS? Rolling L/R: Max assist x 1? Sit-supine: Mod assist x2 ? Sit-stand: Moderate assist x 2? Stand-sit: Moderate assist x 2 ? Bed-Chair: ? Chair-bed: Mod assist x2 Provided skilled cues and instruction on performance and technique throughout. Gait Training (35495x7): Direct one-on-one instruction and skilled instruction in: [x] employing an assistive device [x] modified weight-bearing status [x] movement sequencing [x] turning and movement with proper form [x] Provided verbal cues for equipment management and technique [x] Provided instruction in gait pattern [x] Patient education regarding pacing and breathing techniques to maximize activity tolerance? GAIT? Assistive Device: Front wheel walker ? Weight bearing: Weightbearing as tolerated right lower extremity Assist: Moderate x 2 with constant verbal cueing for proper hand positioning on walker, verbal cueing for proper standing posture as she tends to excessively anteroflex and poor hand control on walker.? Distance:?15 feet with turn 180 degrees to transition from stand to sit at bedside prior to sit to supine transfer. ? Deviation: Shuffling. No step through pattern. Antalgic with weightbearing during right stance phase. ? Therapeutic Exercises ([id number]): Direct one-on-one instruction in therapeutic exercises to develop strength, endurance, range of motion and flexibility. Exercises performed prior to ambulation gait training. Performed in bedside chair. Seated hip flexion 2 x 10 left 1 x 10 right active assisted Long arc quads 2 x 10 left, 2 x 10 right active assisted Seated hip flexion 2 x 10 left, 1 x 10 right active assisted moderate assist Ankle pumps x 20 Seated hip adduction isometrics 10 x 3-second hold Seated left hip abduction isometric 10 x 3-second hold attempted on right but too painful. Provided skilled instruction in proper exercise performance and skilled manual cues to facilitate proper muscle recruitment and/or form. PLAN: [] TREATMENT CODE/TIME: AM session: [id number], [id number] 28 minutes (11:12-11:40 am) PM session: [id number], [id number] 30 minutes (2:05-2:35 pm) DISCHARGE RECOMMENDATION: ?SNF for continued rehabilitation, specifically with her to ensure they are together. Disclaimer: This note was created using [employer] voice recognition software. It was reviewed for major content. However, there may be multiple small discrepancies and errors due to the voice recognition aspects of the software. Clock
[2025-08-08] MEDS: Polyethylene Glycol 3350 17 GM PACKET PO (12:53)
[2025-08-08 14:44] VITALS: BP 107/65; PULSE 91; RESP 16; TEMP 37.2; O2SAT 92
--- NOTE | 2025-08-08 16:00 | PGE_ITS ---
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 Advised holding anticoagulation (2) Closed comminuted intertrochanteric fracture of right femur: Status: Acute Assessment and plan: -Orthopedic surgery performed R intramedullary nailing on 08/05, no intraoperative events. -Pain control oxycodone PO, and tylenol PO PRN -pt attempted OOB with PT, plan to discharge to SNF for rehab 08/09 [facility] (3) Abnormal CT scan, kidney: Status: Acute Assessment and plan: -Incidental CT finding: There is an exophytic lobulated and enhancing mass from the posterior medial aspect of the right kidney measuring 2 by 2.5 x 3.8 cm -outpt f/u recommended w PCP (4) Diabetes mellitus due to underlying condition, controlled, with diabetic neuropathy, without long-term current use of insulin: Status: Acute Assessment and plan: -Last known A1C 6.3 in February 2025, not on any meds at this time (5) Benign essential hypertension: Status: Acute Assessment and plan: - Normotensive -Continue home dosing of metoprolol succinate -Hold home HCTZ, lisinopril Discharge Planning Discharge Plannin08/09/[address] [facility] H[facility]R Objective Last Vital Signs Temp 37.2 C 08/08/25 14:44 Pulse 91 H 08/08/25 14:44 Resp 16 08/08/25 14:44 BP 107/65 08/08/25 14:44 Pulse Ox 92 08/08/25 14:44 VTE Prohylaxis Risk Level: Moderate/High Risk Contraindications: Active bleed/high bleed risk and Other (pre-operative, possible head bleed) Prophylaxis: Mechanical Time Spent with Patient Time Spent with Patient: 25-34 minutes Time was spent: preparing to see the patient(eg.review tests), ordering medications,tests, procedures, referring, communicating with other health healthcare associate, indepentently interpreting results, counseling the patient and care coordination
[2025-08-08 20:04] VITALS: BP 118/55; PULSE 113; RESP 18; TEMP 37; O2SAT 92
[2025-08-08] MEDS: Simvastatin 40 MG TAB 80 MG PO (20:12)
[2025-08-09 07:41] VITALS: BP 102/89; PULSE 108; RESP 18; TEMP 36.5; O2SAT 95
[2025-08-09] MEDS: Clopidogrel 75 MG TAB PO (08:43)
[2025-08-09] MEDS: Metoprolol CR 100 MG TABCR PO (08:43)
[2025-08-09] MEDS: oxyCODONE 5 MG TAB PO (08:43)
--- NOTE | 2025-08-09 09:58 | PT.INTREAT ---
PT Notes Visit Reasons: Right Hip Fracture Inpatient Physical Therapy Treatment Note [facility] Date: 08/09/2025 PRECAUTIONS:WBAT RLE SUBJECTIVE: Pt reports she is afraid but would like to sit in the chair OBJECTIVE: fearful anxious female semireclined in bed with restless BUE, B pf noted.? PAIN: It hurts alot VITALS: ?Monitored by Nursing Therapeutic Activities ([id number][]): Direct one-on-one instruction in dynamic activities to improve functional performance. ? BED MOBILITY/TRANSFERS? Rolling L/R: Max A of 2 with B knee flexion with Bed flat Supine-sit: Max A of 1 and min A of 1 from semireclined 40 degrees and slow calm instructions allowing for increased time to process and be comfortable (1st session)? Sit-supine: Max A of 2 1 person for trunk 1 person for BLE (2nd session)? Sit-stand: mod A of 2 x 5 trials from bed and chair (1st session) ; mod A of 2 from chair x 2 trials (2nd session) ? Stand-sit: Min A of 2 x 5 trials (1st session) mod A of 2 (2nd session) ? Bed-Chair: with FWW with Mod A of 1 and min A of 1 8 shuffling steps assist for trunk, and FWW mgmt?( 1st session) ? Chair-bed: step turn with FWW Mod A of 2 toward left assist for trunk and FWW mgmt Provided skilled cues and instruction on performance and technique throughout. am session Therapeutic Exercises : Direct one-on-one instruction in therapeutic exercises to develop strength, endurance, range of motion and flexibility. Provided skilled manual cues to facilitate proper muscle recruitment Exercises Seated hip flexion 2 x 10 left 1 x 10 right active assisted Long arc quads 2 x 10 left, 2 x 10 right active assisted Seated hip flexion 2 x 10 left, 1 x 10 right active assisted moderate assist Ankle pumps x 20 Seated hip adduction isometrics 10 x 3-second hold Seated left hip abduction isometric 10 x 3-second hold attempted on right but too painful. ? Provided skilled instruction in proper exercise performance ASSESSMENT:? Pt able to advance BLE small shuffling steps this session. She is significantly limited by fear and pain in her right hip with ROM and WB. PLAN: Continue with strengthening, bed mobility, transfer and gait training. TREATMENT CODE/TIME:1st session: 47761/ [id number] 2nd session: [id number]/ [id number] DISCHARGE RECOMMENDATION: SNF when medically appropriate
--- NOTE | 2025-08-09 10:17 | PDOC.CMPRO ---
Date of service: 08/09/25 Time of Service: 10:17 Social Determinants of Health Screening Social Determinants of health last assessed in clinic: 08/06/25 Will the Patient Participate in the Screening?: Yes Do you worry about having a steady place to live?: yes What is your living situation today?: I have housing today, but am worried about losing it Problems where you live: no known problems In the past 12 months, have you had to go without electric, gas, oil or water in your home?: yes Has lack of transportation kept you from medical appointments or from doing things needed for daily living?: yes Has anyone in your life made you feel unsafe or unsupported?: no How hard is it for you to pay for the very basics like food, housing, medical care, and heating? Would you say it is:: Not hard at all Do you want help finding or keeping work or a job?: I do not need or want help If for any reason you need help with day-to-day activities such as bathing, preparing meals, shopping, managing finances, etc., do you get the help you need?: I could use a little more help How often do you feel lonely or isolated from those around you?: Never Do you speak a language other than Salvadorean at home?: No Does the patient want assistance with any of the above?: No Health Related Social Needs Health related social needs: housing instability, housed, with risk of homelessness (Z59.811), transportation insecurity (Z59.82), material hardship(utilities) (Z59.12) and problems with daily activities (Z73.9) Health related social needs details: Pt will need assistance with ADLs due to recent fracture from a fall prompting this admission
[2025-08-09] MEDS: Acetaminophen 325 MG TAB 650 MG PO (10:50)
--- NOTE | 2025-08-09 11:49 | W.PM.DS.N ---
Date of service: 08/09/25 Time of Service: 11:49 DS: Diagnosis Discharge Diagnosis (1) Abnormal head CT: Status: Acute (2) Closed comminuted intertrochanteric fracture of right femur: Status: Acute (3) Abnormal CT scan, kidney: Status: Acute (4) Diabetes mellitus due to underlying condition, controlled, with diabetic neuropathy, without long-term current use of insulin: Status: Acute (5) Benign essential hypertension: Status: Acute Discharge Plan Disposition Patient Disposition: [facility] Facility(SNF) Anticipated Discharge Date/Time: 08/09/25 10:00 Condition: Fair Discharge Details Reason For Visit: Right Hip Fracture Admit Date/Time: 08/04/25 18:43 Admit Provider: Zhang Alvarez Attending Provider: Zhang Alvarez Primary Care Provider: Marleen Boyle [place] Hospital Course Hospital Course: This is an 80-year-old woman with a significant history of prior CVAs and baseline cognitive impairment who presented on 08/04/25 after a mechanical fall with head strike and right hip pain. She denied loss of consciousness. Initial CT head demonstrated left frontal lobe attenuation concerning for hemorrhage versus calcification. Repeat CT showed no progression or acute hemorrhage. [facility] neurosurgery was consulted and cleared the patient for surgery with no additional intervention recommended. Imaging of the pelvis and femur revealed a comminuted intertrochanteric fracture of the right femur. Orthopedic surgery was consulted, and the patient underwent right hip intramedullary nail fixation (CPT 79411) on 08/05/[address] Regis Neff. The procedure was tolerated well without surgical complications. Estimated blood loss was minimal. Postoperatively, the patient remained hemodynamically stable. An incidental enhancing right renal mass was identified on CT abdomen/pelvis. This was not discussed on admission due to the patient?s confusion and should be addressed as an outpatient. Postoperatively, pain was managed with a multimodal approach. Colleir catheter was discontinued on postoperative day one. Physical therapy evaluated the patient and noted significant functional limitations requiring maximal to moderate assistance for transfers and ambulation. She was able to ambulate short distances with a rolling walker and two-person assist. Given her functional status, cognitive impairment, and need for ongoing rehabilitation, long-term facility placement was recommended. Patient is accepted at [facility]. Patient is discharged stable. Palliative care consult requested and pending for assistance with [id number] discussions. Patient remains FULL CODE and per last found documentation (2011) desires ongoing disease-directed and life-prolonging treatment. This consult is for supportive care and does not represent a change in code status. Home Meds and New Rx's Prescriptions: New acetaminophen 325 mg Tablet 650 mg PO Q6H PRN PRNQty: 0 0RF oxycodone 5 mg Tablet 5 - 7.5 mg PO Q4H PRN PRNQty: 0 0RF Continued clopidogrel 75 mg tablet 75 mg PO DAILY Qty: 90 3RF cholecalciferol (vitamin D3) [Vitamin D3] 2,000 UNIT capsule 2,000 unit PO DAILY Qty: 90 lisinopril [Zestril] 40 mg tablet 40 mg PO DAILY Qty: 90 4RF hydrochlorothiazide 25 mg tablet 25 mg PO DAILY Qty: 90 1RF metoprolol succinate 100 mg tablet extended release 24 hr 100 mg PO DAILY Qty: 90 3RF simvastatin 80 mg tablet 80 mg PO QPM Rx Instructions: take one tablet daily Discharge Instructions Additional Instructions: Activity: Weightbearing as tolerated with walker. Leave dressing in place for 10-14 days, and then may remove and leave skin glue open to air. Keep clean and dry at all times. Referrals: Marleen Boyle NP [Primary Care Provider, Medicine] Referral Note: s/p hospitalization for hip fracture after recommend one week post discharge from [facility] and rehab (D) Regis Neff MD [ [facility] STAFF PHYSICIAN, Orthopaedic Surgical] Referral Note: 2-[address] Neff or orthopedic physician clinical services assistant Activity:: Activity as Tolerated Equipment/Supplies:: Walker Diet:: As Tolerated Discharge Orders Discharge Orders: Discharge Order (Routine); Ordered 08/09/25 Ordered By: Padmini Andino DS: Summary Time Spent with Patient providing and/or coordinating discharge services: Greater than 30 minutes Status at Discharge Functional status at discharge: uses cane/walker Overall status at discharge: patient is progressing back to baseline Mental Status: mental status grossly normal (Baseline) Speech and Movement: speech and movement normal (baseline) Mood: anxious mood Affect: indifferent Quality:SDOH Health Related Social Needs: Health related social needs risk of homeless transpo insecurity material hardship daily activities Health related social needs details Pt will need assistance with ADLs due to recent fracture from a fall prompting this admission Health related social needs details: Pt will need assistance with ADLs due to recent fracture from a fall prompting this admission Exam Const General: cooperative, healthy appearing, comfortable and no acute distress Nutritional Appearance: average body habitus and well nourished Orientation: alert HENMT Head: normal to inspection and atraumatic Ears: hearing grossly normal bilaterally General nose exam: external nose normal Face and sinus: normal facial exam Resp Effort & Inspection: normal respiratory effort and able to speak in complete sentences Auscultation: clear to auscultation bilaterally Cardio Rate: regular rate Rhythm: regular rhythm GI Inspection: normal to inspection Palpation: soft and nontender Skin General skin exam: other (clean dry bandage intact to R proximal lateral thigh) Neuro General: patient alert, tone normal and moves all extremities Motor: muscle tone normal throughout and other (R sided LE paresis, 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) Sensory Exam: no sensory deficits noted Psych Mental Status: mental status grossly normal (Baseline) Speech and Movement: speech and movement normal (baseline) Mood: anxious mood Affect: indifferent DS: Data Vitals/I&O Vitals and I&O: Vital Signs Temperature 36.5 C 08/09/25 07:41 Temperature Source Temporal Artery Scan 08/09/25 07:41 Pulse 108 H 08/09/25 07:41 Pulse Rhythm Regular 08/04/25 20:46 Pulse 74 08/05/25 13:42 Respiratory Rate 18 08/09/25 07:41 Respiratory Effort Normal 08/04/25 20:46 Respiratory Depth Normal 08/04/25 20:46 Respiratory Pattern Normal 08/04/25 20:46 Blood Pressure 102/89 08/09/25 07:41 Blood Pressure Mean 93 08/09/25 07:41 Blood Pressure Position Supine 08/04/25 12:38 Pulse Oximetry 95 08/09/25 07:41 Respiratory End-tidal CO2 30 08/05/25 13:42 Oxygen Delivery Method Room Air 08/09/25 07:41 Oxygen Flow Rate 0 08/09/25 07:41 Pain Level 10 08/09/25 09:09 Comment pt asleep 08/09/25 02:52 Intake & Output 08/08/25 08/08/25 08/09/25 11:59 23:59 11:59 Intake Total 500 / 500 Output Total 350 / 650 300 / 650 820 / 820 Balance 150 / -150 -300 / -150 -820 / -820 Intake: IV 500 / 500 Output: Urine 350 / 650 300 / 650 820 / 820 Other: Urine Color Yellow Yellow Yellow Urine Appearance Clear Clear Clear Urine Odor None None Comment FASHION MARKETER checked pt's collier, no need to empty. straight cath done straight cath done Data Completed and Pending Pending Labs at Discharge: 08/04/25 08/04/25 08/04/25 13:20 16:15 16:55 WBC 8.97 RBC 3.37 L Hgb 10.6 L Hct 31.3 L MCV 93 MCH 31.5 MCHC 33.9 RDW 12.3 Plt Count 216 MPV 10.4 Immature Gran % 0.3 Neutrophils % 76.2 Lymphocytes % 16.8 Monocytes % 6.0 Eosinophils % 0.3 Basophils % 0.4 Nucleated RBC % 0.0 Absolute Neutrophils 6.82 H Absolute Lymphocytes 1.51 Absolute Monocytes 0.54 Absolute Eosinophils 0.03 Absolute Basophils 0.04 PT INR Sodium 138 Potassium 4.1 Chloride 100 Carbon Dioxide 28.8 Anion Gap 9.2 BUN 42 H Creatinine 1.09 H Est GFR (CKD-EPI 2020) 48.25 Glucose 172 H Calcium 9.3 Total Bilirubin 0.8 AST 18 ALT 18 Alkaline Phosphatase 83 Total Protein 7.2 Albumin 4.3 Lipase 35 Urine Color Yellow Urine Clarity Clear Urine pH 5.5 Ur Specific [place] <= 1.005 Urine Protein Negative Urine Ketones Trace H Urine Blood Trace-intact H Urine Nitrite Negative Urine Bilirubin Negative Urine Urobilinogen 0.2 Ur Leukocyte Esterase Negative Urine RBC 0-2 Urine WBC Negative Ur Epithelial Cells Rare Urine Crystals Negative Urine Bacteria Rare Urine Casts Negative Urine Mucus Negative Urine Other Rare Transitional Ur Culture Indicated? No Urine Glucose Negative ABO/Rh O Positive Antibody Screen NEGATIVE 08/05/25 06:17 WBC RBC Hgb 9.6 L Hct 28.6 L MCV MCH MCHC RDW Plt Count MPV Immature Gran % Neutrophils % Lymphocytes % Monocytes % Eosinophils % Basophils % Nucleated RBC % Absolute Neutrophils Absolute Lymphocytes Absolute Monocytes Absolute Eosinophils Absolute Basophils PT 10.3 INR 1.0 Sodium 141 Potassium 4.0 Chloride 106 Carbon Dioxide 26.5 Anion Gap 8.5 BUN 35 H Creatinine 0.92 Est GFR (CKD-EPI 2020) 58.68 Glucose 152 H Calcium 8.7 Total Bilirubin AST ALT Alkaline Phosphatase Total Protein Albumin Lipase Urine Color Urine Clarity Urine pH Ur Specific [place] Urine Protein Urine Ketones Urine Blood Urine Nitrite Urine Bilirubin Urine Urobilinogen Ur Leukocyte Esterase Urine RBC Urine WBC Ur Epithelial Cells Urine Crystals Urine Bacteria Urine Casts Urine Mucus Urine Other Ur Culture Indicated? Urine Glucose ABO/Rh Antibody Screen PFSH All Active Problems (Updated 08/04/25 @ 23:57 by Zhang Alvarez MD) Benign essential hypertension (Acute) Abnormal head CT (Acute) Closed comminuted intertrochanteric fracture of right femur (Acute) Abnormal CT scan, kidney (Acute) Fall (Acute) Intracranial bleed (Acute) Trochanteric fracture of right femur (Acute) Closed intertrochanteric fracture of right hip (Acute 08/04/25) Short-term memory loss (Chronic) Due to stroke in 2011. They feel it is stable. 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 to thrombus L ICA (R)hemiparesis,expressive aphasia/(R) visual field cut/impaired mobility : TIA Chronic anticoagulation (03/22/14) CVA + TIA ,goal inr 2-3; changed to plavix 05/2022 Surgical History Status post fracture of left tibia Family History Mother , 90's Heart disease Father , 90's No problems noted. Sister , 70's Heart disease Sister , 60's Cancer Social History (Updated 03/17/25 @ 10:13 by Ana M Feliciano MD) Smoking/Tobacco Use Status: Former Tobacco Use tobacco type: cigarettes Quit Date: 08/26/11 Tobacco: How many years used: 40 Second Hand Exposure: Yes Smoking risk assessment performed?: Yes Alcohol Intake: current Alcohol Intake frequency: holidays/special occasions only Alcohol type: wine and hard liquor Drug use: Never Substance use type: does not use Caregiver/Support person: Yes Household members: spouse Housing: house Number of Children: 0 Communication Needs: None Education Level: other Do you need help understanding health information?: Rarely Pets and animals: Yes Pets and animals: cat(s) Sexually active: No Do you think of yourself as: straight/heterosexual Current gender identity: female What is your relationship status?: How often do you talk on the phone with friends or family?: once per week How often do you get together with friends or relatives?: decline to answer How often do you attend gnosticist or sikh services?: decline to answer Do you belong to any clubs or organized social groups?: no Panel score (0-1 are the most socially isolated patients): 1 Rayna/Presybeterian: No preference Seatbelt use: always Helmet use: No Drive intox or ride w/intox driver service technician: No Time Spent with Patient Time Spent with Patient: 45-69 minutes Time was spent: preparing to see the patient(eg.review tests), ordering medications,tests, procedures, referring, communicating with other health interior plant caretaker, indepentently interpreting results, counseling the patient and care coordination
[2025-08-09 11:51] VITALS: BP 130/75; PULSE 79; RESP 16; TEMP 36.6; O2SAT 93
--- NOTE | 2025-08-09 11:53 | CMDISCH_ITS ---
Date of service: 08/09/25 Time of Service: 11:53 LACE Index Scoring Tool Questions: Length of Stay (in days): 4 - 6 Was the patient admitted via the E.D.?: Yes Comorbidities: Diabetes w/o Complication E.D. Visits: 1 Answers: Total Score: 9 Risk of Readmission: Low Risk Care Management Discharge Plan Reason for Hospitalization: Closed comminuted intertrochanteric fracture of right femur Discharge Plan: Viry is being discharged to [facility] for STR, which is needed prior to returning home with her . Patient will follow up with facility/community providers and continue per her discharge plan of care. Patient/Family Education Needs: Review discharge instructions and plan to follow up as an outpatient. Discuss ask me three. Services Needed at Discharge: Residential Facility ([facility] for STR) and Transportation ([facility] w/c van) SDOH Health Related Social Needs: Health related social needs risk of homeless transpo i nsecurity material hardship daily activities Health related social needs details Pt will need rona tance with ADLs due to recent fracture from a fall prompting this admission Health related social needs details: Pt will need assistance with ADLs due to recent fracture from a fall prompting this admission
--- NOTE | 2025-08-09 12:11 | NUR.NOTE ---
Called [facility] rehab and spoke with Lara for report. Advised need for feeding cues d/t baseline dementia. Advised swallows fine just forgets food is there and needs cues. Advised pt is a 2 assist w/walker and gait belt. Pain controlled with PO meds. Anxious at baseline d/t dementia and pain. Advised PT worked with pt today and she was able to take steps in room with walker. Nurse confirmed report and no other questions at this time. This nurse provided name and number in case any questions come up.
== END 2025-08-09 13:44 | disposition skilled nursing facility (03) | DRG 956 ==
LOC: ER 18:42 → MS 08-05 06:50
PROVIDERS: Physician Assistant; Student in an Organized Health Care Education/Training Program; Admitting Provider Family Medicine; Emergency Provider Registered Nurse Emergency; PCP Nurse Practitioner Family; Responsible Provider Nurse Practitioner Family; Visit Provider Family Medicine
PROC: 0QS606Z Reposition Right Upper Femur with Intramedullary Internal Fixation Device, Open Approach (ICD-10-PCS; CPT 27245; principal; 2025-08-05 10:00)
DX: S72.141A Displaced intertrochanteric fracture of right femur, initial encounter for closed fracture (principal); R93.429 Abnormal radiologic findings on diagnostic imaging of unspecified kidney; R93.0 Abnormal findings on diagnostic imaging of skull and head, not elsewhere classified; I10 Essential (primary) hypertension; S06.350A Traumatic hemorrhage of left cerebrum without loss of consciousness, initial encounter; I69.351 Hemiplegia and hemiparesis following cerebral infarction affecting right dominant side; N17.9 Acute kidney failure, unspecified; Z59.811 Housing instability, housed, with risk of homelessness; Z59.12 Inadequate housing utilities; I69.311 Memory deficit following cerebral infarction; I65.23 Occlusion and stenosis of bilateral carotid arteries; E55.9 Vitamin D deficiency, unspecified; E78.5 Hyperlipidemia, unspecified; E08.40 Diabetes mellitus due to underlying condition with diabetic neuropathy, unspecified; Z79.01 Long term (current) use of anticoagulants; W01.0XXA Fall on same level from slipping, tripping and stumbling without subsequent striking against object, initial encounter; D64.9 Anemia, unspecified; Z87.891 Personal history of nicotine dependence; Z79.899 Other long term (current) drug therapy; Z59.82 Transportation insecurity; Z73.89 Other problems related to life management difficulty
CPT/HCPCS: 27245; 00123; 36415; 51702; 73552; 74177; 80048; 80053; 83690; 86850; 86900; 86901; 93005; 96361; 96374; 96376; 97110; 97112; 97116; 97162; 97530; 99223; 99285; 70450; 71260; 72125; 72170; 73501; 73502; 73630; 81003; 81015; 85014; 85018; 85025; 85610; 93010; 99222; 99231; 99233; 99239; G0378; J0690; J1885; J2003; J2405; J2704; J3010; J3490

== ENCOUNTER 2025-08-10 04:39 | Observation (INO) | payer MEDICARE, SELFPAY ==
[2025-08-10] VITALS (54 sets, daily range): BP systolic 92–148; BP diastolic 26–73; PULSE 82–100; RESP 16–17; TEMP 36.7–37.2; O2SAT 89–96
--- NOTE | 2025-08-10 04:45 | DI.RAD_ITS ---
Exam(s) XR PELVIS AP XR FEMUR RT EXAM: XR PELVIS AP and XR femur RT CLINICAL HISTORY: Recent right hip replacement, pain worsening. TECHNIQUE: 2D digital imaging was performed.Six images were obtained. COMPARISON: CR XR PELVIS AP from 08/04/2025 XA XR HIP RT IN OR from 08/05/2025 CR,XR XR HIP RT COMPLETE AP PELVIS from 08/08/2025 FINDINGS: BONES: There has been no change in alignment of the intramedullary dasha transfixing the intertrochanteric fracture of the right femur. There is stable alignment of the fracture fragments. The orthopedic hardware appears unremarkable. No bony destructive lesion is seen. There is no new fracture or dislocation. JOINTS: No dislocation present. No joint space narrowing is present. SOFT TISSUE: Calcified uterine fibroid is seen in the pelvis. Atherosclerotic calcification is present. IMPRESSION: 1. Stable alignment of the intramedullary dasha and comminuted fracture fragments of the right femur. 2. No acute abnormality. 3. The preliminary [facility] report was reviewed. DATA REPOSITORY: RADIATION DOSE DELIVERED:
--- NOTE | 2025-08-10 04:55 | W.ED.GENAD ---
Discharge Plan Disposition Patient Disposition: Admit to [facility] Condition: Good Discharge Details Clinical Impression: Hip pain, right, Vomiting, Gastroparesis Primary Care Provider: Marleen Boyle ED Provider: Fredi Hoffman Home Meds and New Rx's Prescriptions: No Action clopidogrel 75 mg tablet 75 mg PO DAILY Qty: 90 3RF cholecalciferol (vitamin D3) [Vitamin D3] 2,000 UNIT capsule 2,000 unit PO DAILY Qty: 90 lisinopril [Zestril] 40 mg tablet 40 mg PO DAILY Qty: 90 4RF hydrochlorothiazide 25 mg tablet 25 mg PO DAILY Qty: 90 1RF metoprolol succinate 100 mg tablet extended release 24 hr 100 mg PO DAILY Qty: 90 3RF simvastatin 80 mg tablet 80 mg PO QPM Rx Instructions: take one tablet daily acetaminophen 325 mg Tablet 650 mg PO Q6H PRN PRNQty: 0 0RF oxycodone 5 mg Tablet 5 - 7.5 mg PO Q4H PRN PRNQty: 0 0RF aspirin 81 mg tablet,delayed release (DR/EC) 81 mg PO BID Qty: 60 0RF HPI General Date/Time Provider Initiated Documentation: 08/10/25 04:49. HPI Narrative: This is an 80-year-old female with a past medical history of prior strokes, baseline cognitive impairment, hypertension, high cholesterol, with recent mechanical fall and subsequent comminuted intertrochanteric fracture of the right femur, who underwent right hip intramedullary nail fixation on 08/05/[address] Neff, with good toleration of the surgery, and subsequent transfer to [facility] and rehab. Patient was transitioned there 24 hours ago on 08/09/2025, a prescription for oxycodone was sent for pain control. Nursing at the facility states that the order was not put into their Pyxis and so they were not able to access that tonight. The patient was complaining of pain. She had to call the on-call provider who did allow for the oxycodone to be given but then after this the patient had 2 episodes of vomiting. Because she was still in pain and had the episodes of vomiting and there were no additional doses for the oxycodone to be given EMS was called and the patient was transferred to the ER for evaluation. Currently the patient complains of mild achiness in the right hip. She has been able to ambulate. She denies any new falls or trauma since the surgery. Health and rehab nursing staff deny any new falls or trauma. No redness warmth or fever. No other complaints. Patient states that she is comfortable while laying in bed, but has more pain when walking. Patient denies any severe pain at this time. Related Data Home Medications ?Medication ?Instructions ?Recorded ?Confirmed cholecalciferol (vitamin D3) 50 2,000 unit PO DAILY #90 tab-caps 09/04/16 08/04/25 mcg (2,000 unit) capsule (Vitamin D3) clopidogrel 75 mg tablet 75 mg PO DAILY #90 tabs 12/29/24 08/04/25 hydrochlorothiazide 25 mg tablet 25 mg PO DAILY #90 tabs 05/04/25 08/04/25 lisinopril 40 mg tablet (Zestril) 40 mg PO DAILY #90 tabs 05/04/25 08/04/25 metoprolol succinate 100 mg 100 mg PO DAILY #90 tabs 06/07/25 08/04/25 tablet,extended release 24 hr simvastatin 80 mg tablet 80 mg PO QPM 08/04/25 08/04/25 acetaminophen 325 mg tablet 650 mg (2 x 325 mg) PO Q6H PRN PRN 08/08/25 #0 tabs oxycodone 5 mg tablet 5 - 7.5 mg (1 - 1.5 x 5 mg) PO Q4H 08/08/25 PRN PRN #0 tabs aspirin 81 mg tablet,delayed 81 mg PO BID #60 tabs 08/09/25 release Previous Rx's ?Medication ?Instructions ?Recorded clopidogrel 75 mg tablet 75 mg PO DAILY #90 tabs 12/29/24 hydrochlorothiazide 25 mg tablet 25 mg PO DAILY #90 tabs 05/04/25 lisinopril 40 mg tablet (Zestril) 40 mg PO DAILY #90 tabs 05/04/25 metoprolol succinate 100 mg 100 mg PO DAILY #90 tabs 06/07/25 tablet,extended release 24 hr acetaminophen 325 mg tablet 650 mg (2 x 325 mg) PO Q6H PRN PRN 08/08/25 #0 tabs oxycodone 5 mg tablet 5 - 7.5 mg (1 - 1.5 x 5 mg) PO Q4H 08/08/25 PRN PRN #0 tabs aspirin 81 mg tablet,delayed 81 mg PO BID #60 tabs 08/09/25 release Allergies Allergy/AdvReac Type Severity Reaction Status Date / Time spider venom Allergy Intermediate Swelling Verified 08/04/25 12:42 General Stated Complaint: Recheck RAHEL: 4 Exam Narrative Exam Narrative: 1.Const: Well-nourished, Well-developed, appearing stated age 2.Eyes: PERRL, no conjunctival injection, and symmetrical lids. 3.ENT: Atraumatic external nose and ears. Moist MM. Neck: Symmetric, trachea midline, No thyromegaly. 4.CVS: +S1/S2, Peripheral pulses 2+ and equal in all extremities. Brisk capillary refill in all extremities. 5.RESP: Unlabored respiratory effort. Clear to auscultation bilaterally. No wheezes rales or rhonchi 6.GI: Soft, Nontender, No hepatosplenomegaly. No guarding or rebound. 7.MSK: Normocephalic/Atraumatic, Extremities w/o deformity or ttp No cyanosis or clubbing, Normal movement of all extremities. Right hip demonstrates clean dry and intact incision sites. No redness or drainage. Normal movement of the right hip without significant or severe pain. Strength is about 3 out of 5 for movement of the right hip. 8.Skin: Warm, Dry. No rashes or lesions. 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 Sensation grossly intact, no focal neurologic deficits. 10.Psych: (AAO) x3. Appropriate mood and affect Course Vital Signs Vital signs: Vital Signs Temperature 36.7 C 08/10/25 04:42 Pulse 93 H 08/10/25 04:42 Respiratory Rate 16 08/10/25 04:42 Blood Pressure 148/63 H 08/10/25 04:42 Pulse Oximetry 93 08/10/25 04:42 Temperature 36.7 C 08/10/25 04:42 Temperature Source Oral 08/10/25 04:42 Pulse 93 H 08/10/25 04:42 Respiratory Rate 16 08/10/25 04:42 Blood Pressure 148/63 H 08/10/25 04:42 Blood Pressure Position Supine 08/10/25 04:42 Pulse Oximetry 93 08/10/25 04:42 Oxygen Delivery Method Room Air 08/10/25 04:42 Oxygen Flow Rate 0 08/10/25 04:42 Pain Level 5 08/10/25 04:42 Procedure EJ/Peripheral IV/Phlebotomy Date of Procedure: 08/10/25 Time of Procedure: 06:30 Indication: Nursing/tech could not get IV Laterality: Left Insertion Site: Antecubital Size & Type: 20 ga. Number ofAttempts(See previous attempts in note section): 1 Dressing: IV Dressing Placed and Tegaderm Applied Ultrasound: Used/Image Saved Estimated Blood Loss: minimal Reason for Blood Draw by Provider: RN/lab unable and MD to place line Procedure Tolerated: No Complications Procedure Outcome: Successful Medical Decision Making This is an 80-year-old female with a past medical history of prior strokes, baseline cognitive impairment, hypertension, high cholesterol, with recent mechanical fall and subsequent comminuted intertrochanteric fracture of the right femur, who underwent right hip intramedullary nail fixation on 08/05/[address] Neff, with good toleration of the surgery, and subsequent transfer to [facility] and rehab. Patient was transitioned there 24 hours ago on 08/09/2025, a prescription for oxycodone was sent for pain control. Nursing at the facility states that the order was not put into their Pyxis and so they were not able to access that tonight. The patient was complaining of pain. She had to call the on-call provider who did allow for the oxycodone to be given but then after this the patient had 2 episodes of vomiting. Because she was still in pain and had the episodes of vomiting and there were no additional doses for the oxycodone to be given EMS was called and the patient was transferred to the ER for evaluation. Currently the patient complains of mild achiness in the right hip. She has been able to ambulate. She denies any new falls or trauma since the surgery. Health and rehab nursing staff deny any new falls or trauma. No redness warmth or fever. No other complaints. Patient states that she is comfortable while laying in bed, but has more pain when walking. Patient denies any severe pain at this time. Exam demonstrates well-appearing female, no acute abnormalities, incision site is clean dry and intact, she has appropriate movement of the right hip without evidence of severe pain. Patient is resting comfortably in bed. Pain is mild at most at this time. No abdominal tenderness. Will get x-ray of the hip to make sure the orthotic component is still in place. We will treat with Zofran to prevent any further nausea. Patient does not show evidence of need for IV pain medications at this time. She is otherwise comfortable while lying in bed. 6 AM Patient has had episode of vomiting here in the ED. Initial exam does not show tender abdomen but she does appear slightly distended. With the vomiting and health and rehab, and the vomiting here I do feel that further imaging is indicated. Will get a CT scan of the abdomen as well to rule out obstruction. 6:54 AM X-ray findings of the surgical site shows no evidence of malplacement or looseness for the hip nail/dasha. CT scan shows evidence of dilated bladder, and notably distended stomach concerning for gastroparesis, as well as notable stool burden. Elias catheter was placed and the patient micturated 1400 cc of urine. Patient still quite nauseous. With the multiple treatments of oral and IV antiemetics, the distended stomach despite multiple episodes of vomiting, I do feel that continued IV fluids, admission and observation is indicated in this scenario especially given her recent postoperative status. We will reach out to the hospitalist for admission. Although radiology does not show signs of small bowel obstruction, I am worried that the patient may transition to this, and she certainly is not tolerating p.o. at all at this point. FINDINGS: Bones/joints: A gamma nail transfixes a mildly comminuted intertrochanteric fracture of the right femur. The main fracture fragments are in near anatomic alignment. No new fracture identified. Visualized portions of surgical hardware intact and in good position, without evidence of loosening. Soft tissues: Unremarkable. Organs: Calcified uterine fibroid in the right hemipelvis. IMPRESSION: No acute findings. Thank you for allowing us to participate in the care of your patient. Dictated and Authenticated by: Shireen Osorio MD 08/10/2025 6:44 AM Eastern Time ([place] & [place]) FINDINGS: Limitations: Marked motion artifact. Lungs: Dependent changes at the lung bases. Esophagus: Small hiatal hernia and/or thickening of the wall of the distal esophagus. Liver: Normal. No mass. Gallbladder and biliary ducts: Gallstone identified. No secondary signs of acute cholecystitis. No biliary dilatation. Pancreas: Normal. No ductal dilation. Spleen: Normal. No splenomegaly. Adrenal glands: Normal. No mass. Kidneys and ureters: Likely benign bilateral renal cysts, requiring no further evaluation, measuring as large as 2.4 cm in the right midpole. Otherwise unremarkable kidneys. Stomach and bowel: Moderate stool burden. Moderately distended stomach containing an air-fluid level. No other gross bowel abnormalities. No bowel obstruction. Appendix: Appendix unable to be delineated, however no inflammatory changes noted in the expected region of the appendix. Intraperitoneal space: Unremarkable. No free air. No significant fluid collection. Vasculature: No aortic aneurysm. Heavy atherosclerotic calcification of the abdominal aorta and superior mesenteric artery and celiac artery origins. Lymph nodes: Unremarkable. No enlarged lymph nodes. Urinary bladder: Dilated urinary bladder. The urinary bladder volume is 1264 mL. Reproductive: Calcified uterine fibroid(s). Bones/joints: Severe disc space height loss at L4-L5. No acute or suspicious osseous abnormalities. Interval placement of Gamma nail in the right proximal femur, which transfixes an intertrochanteric fracture. The main fracture fragments are in near anatomic alignment. There is a ucsy-nh-etyxwonixt displaced fracture fragment arising from the lesser trochanter. Soft tissues: Unremarkable. IMPRESSION: 1. Dilated urinary bladder. Correlate for urinary retention. If indicated, consider placement of Elias catheter. 2. Findings raising the possibility of gastroparesis. 3. Cholelithiasis. 4. Small hiatal hernia and/or thickening of the wall of the distal esophagus. If the patient has symptoms referable to this region, consider upper endoscopy and/or esophagram for further evaluation. 5. Moderate stool burden. Thank you for allowing us to participate in the care of your patient. Dictated and Authenticated by: Shireen Osorio MD 08/10/2025 6:43 AM Eastern Time ([place] & [place]) Quality:SDOH Health Related Social Needs: Health related social needs risk of homeless transpo insecurity material hardship daily activities Health related social needs details Pt will need assistance with ADLs due to recent fracture from a fall prompting this admission [facility] All Active Problems (Updated 08/10/25 @ 07:44 by Fredi Hoffman DO) Gastroparesis (Acute) Vomiting (Acute) Hip pain, right (Acute) Abnormal head CT (Acute) Closed comminuted intertrochanteric fracture of right femur (Acute) Abnormal CT scan, kidney (Acute) Fall (Acute) Intracranial bleed (Acute) Trochanteric fracture of right femur (Acute) Closed intertrochanteric fracture of right hip (Acute 08/04/25) Short-term memory loss (Chronic) Due to stroke in 2011. They feel it is stable. Carotid stenosis, right (Acute) Carotid occlusion, left (Chronic) Essential hypertension (Chronic 07/27/13) Hyperlipidemia (Chronic 12/19/11) Vitamin D deficiency (Chronic) Medical History Hx of ischemic left MCA stroke (~2013) 09-10-2011: Left MCA infarct sec. to thrombus L ICA (R)hemiparesis,expressive aphasia/(R) visual field cut/impaired mobility : TIA Chronic anticoagulation (03/22/14) CVA + TIA ,goal inr 2-3; changed to plavix 05/2022 Surgical History Status post fracture of left tibia Family History Mother , 90's Heart disease Father , 90's No problems noted. Sister , 70's Heart disease Sister , 60's Cancer Social History (Updated 03/17/25 @ 10:13 by Ana M Feliciano MD) Smoking/Tobacco Use Status: Former Tobacco Use tobacco type: cigarettes Quit Date: 08/26/11 Tobacco: How many years used: 40 Second Hand Exposure: Yes Smoking risk assessment performed?: Yes Alcohol Intake: current Alcohol Intake frequency: holidays/special occasions only Alcohol type: wine and hard liquor Drug use: Never Substance use type: does not use Caregiver/Support person: Yes Household members: spouse Housing: house Number of Children: 0 Communication Needs: None Education Level: other Do you need help understanding health information?: Rarely Pets and animals: Yes Pets and animals: cat(s) Sexually active: No Do you think of yourself as: straight/heterosexual Current gender identity: female What is your relationship status?: How often do you talk on the phone with friends or family?: once per week How often do you get together with friends or relatives?: decline to answer How often do you attend sikhism or jain services?: decline to answer Do you belong to any clubs or organized social groups?: no Panel score (0-1 are the most socially isolated patients): 1 Rayna/Uatsdin: No preference Seatbelt use: always Helmet use: No Drive intox or ride w/intox package delivery driver: No
[2025-08-10] MEDS: Ondansetron O.D.T. 4 MG TABEF PO (04:59)
--- NOTE | 2025-08-10 05:15 | DI.CT_ITS ---
Exam(s) CT ABDOMEN PELVIS WO EXAM: CT ABDOMEN PELVIS WO CLINICAL HISTORY: vomiting, r/o obstruction. TECHNIQUE: Imaging Protocol: Axial computed tomography images with coronal and sagittal reformatted images were created and reviewed. COMPARISON: CT PELVLIC/LOWER ABD W/WO CONT(P) from 05/15/[address] CHEST/ABD/PEL W from 08/04/2025 FINDINGS: The examination is limited due to patient motion artifact. ABDOMEN: Lung Bases: There is thickening of the wall of the distal esophagus. Coronary artery calcifications are present. There is atelectasis in the lung bases. There is a small opacity in the left lower lobe. Liver: Normal density. No measurable mass. Gallbladder and biliary tract: There is a gallstone. There is no biliary ductal dilatation. Pancreas: Normal density, no abnormal calcifications or inflammatory process. Spleen: Normal. Kidneys: Normal size, contour and axis.No radiodense stones or obstructive uropathy. There is a cyst seen in the left kidney. No follow-up is recommended. There is a lobulated exophytic mass arising from the medial aspect of the right kidney. The prior examination showed this lesion to be heterogeneously enhancing concerning for a neoplasm such as a renal cell carcinoma. Adrenal glands: No mass is seen. Lymph nodes: Within normal limits. Atherosclerotic calcification is present. Abdominal Aorta: Abdominal portion non-dilated. PELVIS: Bladder:The urinary bladder is full and distended. Please correlate for evidence of urinary retention. Bowel: No obstruction or bowel wall thickening. There is stool throughout the colon suggesting constipation. There is no evidence of bowel obstruction. There are few diverticula seen in the colon but no evidence of acute diverticulitis. There is no evidence of appendicitis. Peritoneal cavity: No ascites, collection or mesenteric inflammatory response. No free air. Reproductive organs: There is a calcified uterine fibroid present. Bones: There is an intramedullary dasha transfixing the comminuted intertrochanteric fracture of the right femur. Soft Tissues: Within normal limits. IMPRESSION: 1. There is no acute abdominal or pelvic process. 2. Exophytic right renal mass. On the prior examination this was shown to be heterogeneously enhancing concerning for neoplasm such as renal cell carcinoma. 3. Thickening of the wall of the distal esophagus. Upper GI or upper endoscopy should be considered for further evaluation. Please correlate clinically. 4. Interval placement of an intramedullary dasha transfixing the comminuted intertrochanteric fracture of the right femur. 5. The preliminary [facility] report was reviewed. RADIATION DOSE DELIVERED: 867.73mGy.cm Total DLP DATA REPOSITORY: All CT scans at this facility are submitted to the National Radiology Data Registry (NRDR) Dose Index Registry (DIR) with the [employer] (A[employer]). RADIATION OPTIMIZATION: All CT scans at this facility use at least one of these dose optimization techniques: automated exposure control; mA and/or kV adjustment per patient size (includes targeted exams where dose is matched to clinical indication); or iterative reconstruction.
[2025-08-10] MEDS: Ondansetron 4 MG/2 ML VIAL IVP (06:36)
--- NOTE | 2025-08-10 06:44 | DI.[facility]_ITS ---
PROCEDURE INFORMATION: Exam: CT Abdomen And Pelvis Without Contrast Exam date and time: 08/10/2025 5:42 AM Age: 80 years old Clinical indication: Prior surgery; Surgery date: <1 month; Surgery type: R hip; Vomiting, R/O obstruction TECHNIQUE: Imaging protocol: Computed tomography of the abdomen and pelvis without contrast. Radiation optimization: All CT scans at this facility use at least one of these dose optimization techniques: automated exposure control; mA and/or kV adjustment per patient size (includes targeted exams where dose is matched to clinical indication); or iterative reconstruction. COMPARISON: CT CHEST/ABD/PEL W 08/04/2025 3:07 PM FINDINGS: Limitations: Marked motion artifact. Lungs: Dependent changes at the lung bases. Esophagus: Small hiatal hernia and/or thickening of the wall of the distal esophagus. Liver: Normal. No mass. Gallbladder and biliary ducts: Gallstone identified. No secondary signs of acute cholecystitis. No biliary dilatation. Pancreas: Normal. No ductal dilation. Spleen: Normal. No splenomegaly. Adrenal glands: Normal. No mass. Kidneys and ureters: Likely benign bilateral renal cysts, requiring no further evaluation, measuring as large as 2.4 cm in the right midpole. Otherwise unremarkable kidneys. Stomach and bowel: Moderate stool burden. Moderately distended stomach containing an air-fluid level. No other gross bowel abnormalities. No bowel obstruction. Appendix: Appendix unable to be delineated, however no inflammatory changes noted in the expected region of the appendix. Intraperitoneal space: Unremarkable. No free air. No significant fluid collection. Vasculature: No aortic aneurysm. Heavy atherosclerotic calcification of the abdominal aorta and superior mesenteric artery and celiac artery origins. Lymph nodes: Unremarkable. No enlarged lymph nodes. Urinary bladder: Dilated urinary bladder. The urinary bladder volume is 1264 mL. Reproductive: Calcified uterine fibroid(s). Bones/joints: Severe disc space height loss at L4-L5. No acute or suspicious osseous abnormalities. Interval placement of Gamma nail in the right proximal femur, which transfixes an intertrochanteric fracture. The main fracture fragments are in near anatomic alignment. There is a [id number]-[id number]-ukdrvypiyc displaced fracture fragment arising from the lesser trochanter. Soft tissues: Unremarkable. IMPRESSION: 1. Dilated urinary bladder. Correlate for urinary retention. If indicated, consider placement of Elias catheter. 2. Findings raising the possibility of gastroparesis. 3. Cholelithiasis. 4. Small hiatal hernia and/or thickening of the wall of the distal esophagus. If the patient has symptoms referable to this region, consider upper endoscopy and/or esophagram for further evaluation. 5. Moderate stool burden. Dictated and Authenticated by: Shireen Osorio MD. Orderin Yasmin Rai MD
[2025-08-10 06:45] LABS: Abs Immature Grans 0.06 10^3/uL (0.0-0.06); HCT 25.8 % (36.0-46.0); HGB 8.7 g/dL (11.2-15.7); Immature Grans % 0.5 %; MCH 30.9 pg (27.0-33.0); MCHC 33.7 % (32.0-36.0); MCV 92 fL (80-95); MPV 10.1 fL (8.0-11.0); Platelet Count 221 10^3/uL (130-400); RBC 2.82 10^6/uL (3.93-5.22); RDW 12.6 % (11.7-14.6); RDW-SD 41.2 fL; WBC 11.63 10^3/uL (4.4-10.8)
--- NOTE | 2025-08-10 06:45 | DI.[facility]AD_ITS ---
PROCEDURE INFORMATION: Exam: XR Pelvis Exam date and time: 08/10/2025 5:19 AM Age: 80 years old Clinical indication: Hip pain; Prior surgery; Surgery date: <1 month; Surgery type: Hip repair; Recent right hip replacement, pain worsening TECHNIQUE: Imaging protocol: Radiologic exam of the pelvis. Views: 1 or 2 view. COMPARISON: 1. CR XR HIP RT COMPLETE AP PELVIS 08/08/2025 9:32 AM 2. XA XR HIP RT IN OR 08/05/2025 11:33 AM FINDINGS: Bones/joints: A gamma nail transfixes a mildly comminuted intertrochanteric fracture of the right femur. The main fracture fragments are in near anatomic alignment. No new fracture identified. Visualized portions of surgical hardware intact and in good position, without evidence of loosening. Soft tissues: Unremarkable. Organs: Calcified uterine fibroid in the right hemipelvis. IMPRESSION: No acute findings. Dictated and Authenticated by: Shireen Osorio MD. Orderin Yasmin Rai MD
--- NOTE | 2025-08-10 06:47 | DI.VRAD_ITS ---
PROCEDURE INFORMATION: Exam: XR Right Femur Exam date and time: 08/10/2025 5:21 AM Age: 80 years old Clinical indication: Prior surgery; Surgery date: <1 month; Surgery type: Hip repair; Recent right hip replacement, pain worsening TECHNIQUE: Imaging protocol: Radiologic exam of the right femur. Views: 2 views. COMPARISON: CR XR FEMUR RT 08/04/2025 2:48 PM FINDINGS: Bones/joints: A gamma nail transfixes and intertrochanteric fracture of the right femur. The main fracture fragments are in near anatomic alignment. There is a stable mildly displaced fracture fragment arising from the lesser trochanter. No new fracture identified. Visualized portions of surgical hardware intact and in good position, without evidence of loosening. Soft tissues: Small amount of air in the soft tissues overlying the right hip and proximal femur, consistent with the patient's recent postoperative state. Organs: Calcified uterine fibroid in the right hemipelvis. IMPRESSION: No acute findings. Dictated and Authenticated by: Shireen Osorio MD. Orderin Yasmin Rai MD
[2025-08-10 07:04] LABS: Lipase 25 U/L (<53)
[2025-08-10 07:06] LABS: ALT 11 U/L (10-49); AST 26 U/L (<34); Albumin 4.0 g/dL (3.2-5.0); Alkaline Phosphatase 60 U/L (46-116); Anion Gap 9.7 mmol/L (3-11); BUN 26 mg/dL (9-23); Bilirubin, Total 1.6 mg/dL (0.2-1.2); CO2 31.1 mmol/L (20.0-31.0); Calcium 8.9 mg/dL (8.3-10.6); Chloride 95 mmol/L (98-107); Glucose 200 mg/dL (74-106); Potassium 3.7 mmol/L (3.5-5.1); Sodium 136 mmol/L (136-145); Total Protein 6.9 g/dL (5.7-8.2)
[2025-08-10 07:13] LABS: Glucose 100 mg/dL (Negative)
[2025-08-10] MEDS: Normal Saline 500 ML IV (07:30)
--- NOTE | 2025-08-10 07:41 | W.EDPROG ---
Date of service: 08/10/25 Time of Service: 07:44 Medical Decision Making I received signout on this 80-year-old female 5 days status post right-sided hip fracture repair. She has been nauseous and vomiting and her CT scan was concerning for the possibility of gastroparesis. She is not having pain. I was in touch with Dr. Alvarez who graciously agreed to accept the patient for hospitalization. I reassessed the patient. She had a soft abdomen. She had received antiemetics in the ED. She was not vomiting. Quality:SDOH Health Related Social Needs: Health related social needs risk of homeless transpo insecurity material hardship daily activities Health related social needs details Pt will need assistance with ADLs due to recent fracture from a fall prompting this admission Discharge Plan Disposition Patient Disposition: Admit to [facility] Condition: Good Discharge Details Clinical Impression: Hip pain, right, Vomiting, Gastroparesis Admit Date/Time: 08/10/25 12:53 Admit Provider: Zhang Alvarez Attending Provider: Zhang Alvarez Primary Care Provider: Marleen Boyle ED Provider: Roland Sheffield
[2025-08-10] MEDS: MORPHine 2 MG/ML SYR (08:33)
[2025-08-10 10:28] LABS: HCT 21.9 % (36.0-46.0); HGB 7.5 g/dL (11.2-15.7)
[2025-08-10 10:55] LABS: Anion Gap 8.8 mmol/L (3-11); BUN 25 mg/dL (9-23); CO2 30.7 mmol/L (20.0-31.0); Calcium 8.2 mg/dL (8.3-10.6); Chloride 98 mmol/L (98-107); Glucose 176 mg/dL (74-106); Potassium 3.7 mmol/L (3.5-5.1); Sodium 137 mmol/L (136-145)
--- NOTE | 2025-08-10 12:07 | W.PM.HP.N ---
Date of service: 08/10/25 Time of Service: 08:00 Assessment and Plan Assessment and plan (1) Postoperative pain, acute, hip: Status: Acute Assessment and plan: Likely undermedicated for pain on day prior to arrival Restarted oxycodone PRN dosing, patient has no problems asking for it Physical therapy Will recheck renal function and H&H in the morning VTE chemoprophylaxis with enoxaparin while hospitalized Resume ASA 81 BID upon discharge, continue until post-op appointment (2) Nausea & vomiting: Status: Acute Assessment and plan: Improved after she received pain meds and anti-emetics PRN ondansetron (3) Abnormal CT scan, kidney: Status: Acute Assessment and plan: Incidental CT finding on previous admission: There is an exophytic lobulated and enhancing mass from the posterior medial aspect of the right kidney measuring 2 by 2.5 x 3.8 cm Not discussed with patient on admission due to her confusion (4) Hx of ischemic left MCA stroke: Assessment and plan: History of multiple CVAs Residual right hemiparesis Continue clopidogrel (5) Essential hypertension: Status: Chronic Assessment and plan: Continue home regimen History of Present Illness History of Present Illness Chief Complaint: vomiting Narrative: Viry Ward is an 80 year old woman presenting August 09 with vomiting and pain. She had been discharged from [facility] to [facility] rehab on August 08 after hip surgery. Patient missed a dose of narcotics, then received a dose at midnight, followed by tylenol, and then began to vomit. On arrival in the ED she appears fatigued and not as energetic as the previous day when she was discharged. Patient has baseline dementia and a history of stroke with residual right hemiparesis. She had right hip repaired August 05. The fall that led to her hip fracture may have including hitting her head, and she had head CT and [facility] neurosurgery consults which cleared her for surgery; anticoagulation and antiplatelet treatment was restarted. Patient not answering questions at time of interview due to nausea. In the ED she was given fluids and anti-nausea medication and pain medication. CT abdomen was concerning for gastroparesis. PFSH All Active Problems (Updated 08/10/25 @ 19:17 by Zhang Alvarez MD) Nausea & vomiting (Acute) Postoperative pain, acute, hip (Acute) Gastroparesis (Acute) Vomiting (Acute) Hip pain, right (Acute) Abnormal head CT (Acute) Closed comminuted intertrochanteric fracture of right femur (Acute) Abnormal CT scan, kidney (Acute) Fall (Acute) Intracranial bleed (Acute) Trochanteric fracture of right femur (Acute) Closed intertrochanteric fracture of right hip (Acute 08/04/25) Short-term memory loss (Chronic) Due to stroke in 2011. They feel it is stable. Carotid stenosis, right (Acute) Carotid occlusion, left (Chronic) Essential hypertension (Chronic 07/27/13) Hyperlipidemia (Chronic 12/19/11) Vitamin D deficiency (Chronic) Medical History Hx of ischemic left MCA stroke (~2013) 09-10-2011: Left MCA infarct sec. to thrombus L ICA (R)hemiparesis,expressive aphasia/(R) visual field cut/impaired mobility : TIA Chronic anticoagulation (03/22/14) CVA + TIA ,goal inr 2-3; changed to plavix 05/2022 Surgical History Status post fracture of left tibia Family History Mother , 90's Heart disease Father , 90's No problems noted. Sister , 70's Heart disease Sister , 60's Cancer Social History (Updated 03/17/25 @ 10:13 by Ana M Feliciano MD) Smoking/Tobacco Use Status: Former Tobacco Use tobacco type: cigarettes Quit Date: 08/26/11 Tobacco: How many years used: 40 Second Hand Exposure: Yes Smoking risk assessment performed?: Yes Alcohol Intake: current Alcohol Intake frequency: holidays/special occasions only Alcohol type: wine and hard liquor Drug use: Never Substance use type: does not use Caregiver/Support person: Yes Household members: spouse Housing: custodial Number of Children: 0 Communication Needs: None Education Level: other Do you need help understanding health information?: Rarely Pets and animals: Yes Pets and animals: cat(s) Sexually active: No Do you think of yourself as: straight/heterosexual Current gender identity: female What is your relationship status?: How often do you talk on the phone with friends or family?: once per week How often do you get together with friends or relatives?: decline to answer How often do you attend rastafarian or jain services?: decline to answer Do you belong to any clubs or organized social groups?: no Panel score (0-1 are the most socially isolated patients): 1 Rayna/Jehovah'S Witness: No preference Seatbelt use: always Helmet use: No Drive intox or ride w/intox seasonal driver: No Meds Allergies and Home Medications Allergies Allergy/AdvReac Type Severity Reaction Status Date / Time spider venom Allergy Intermediate Swelling Verified 08/04/25 12:42 Home Medications ?Medication ?Instructions ?Recorded ?Confirmed ?Type cholecalciferol (vitamin D3) 50 2,000 unit PO DAILY #90 tab-caps 09/04/16 08/10/25 History mcg (2,000 unit) capsule (Vitamin D3) clopidogrel 75 mg tablet 75 mg PO DAILY #90 tabs 12/29/24 08/10/25 Rx hydrochlorothiazide 25 mg tablet 25 mg PO DAILY #90 tabs 05/04/25 08/10/25 Rx lisinopril 40 mg tablet (Zestril) 40 mg PO DAILY #90 tabs 05/04/25 08/10/25 Rx metoprolol succinate 100 mg 100 mg PO DAILY #90 tabs 06/07/25 08/10/25 Rx tablet,extended release 24 hr simvastatin 80 mg tablet 80 mg PO QPM 08/04/25 08/10/25 History acetaminophen 325 mg tablet 650 mg (2 x 325 mg) PO Q6H PRN PRN 08/08/25 08/10/25 Rx #0 tabs oxycodone 5 mg tablet 5 - 7.5 mg (1 - 1.5 x 5 mg) PO Q4H 08/08/25 08/10/25 Rx PRN PRN #0 tabs aspirin 81 mg tablet,delayed 81 mg PO BID #60 tabs 08/09/25 08/10/25 Rx release Exam Narrative Exam Narrative: General: This is a fatigued, confused elderly woman HEENT: Normocephalic, atraumatic CV: RRR Resp: CTAB Abd: soft, NTND. Right flank ecchymosis faded since prior exam. MSK: voluntary motion x4. Right hip incision sites c/d/i, mild ecchymoses Neuro: awake, alert, chronic right hemiparesis Results Labs 08/10/25 10:23 08/10/25 10:23 Labs: Laboratory Results - last 24 hr 08/10/25 08/10/25 08/10/25 06:32 07:02 10:23 WBC 11.63 H RBC 2.82 L Hgb 8.7 L 7.5 L Hct 25.8 L 21.9 L MCV 92 MCH 30.9 MCHC 33.7 RDW 12.6 Plt Count 221 MPV 10.1 Immature Gran % 0.5 Neutrophils % 87.1 Lymphocytes % 6.6 Monocytes % 5.5 Eosinophils % 0.1 Basophils % 0.2 Nucleated RBC % 0.0 Absolute Neutrophils 10.13 H Absolute Lymphocytes 0.77 L Absolute Monocytes 0.64 Absolute Eosinophils 0.01 Absolute Basophils 0.02 Sodium 136 137 Potassium 3.7 3.7 Chloride 95 L 98 Carbon Dioxide 31.1 H 30.7 Anion Gap 9.7 8.8 BUN 26 H 25 H Creatinine 0.80 0.80 Est GFR (CKD-EPI 2020) 68.94 68.94 Glucose 200 H 176 H Calcium 8.9 8.2 L Total Bilirubin 1.6 H AST 26 ALT 11 Alkaline Phosphatase 60 Total Protein 6.9 Albumin 4.0 Lipase 25 Urine Color Yellow Urine Clarity Clear Urine pH 6.0 Ur Specific [place] 1.010 Urine Protein Negative Urine Ketones 15 H Urine Blood Negative Urine Nitrite Negative Urine Bilirubin Negative Urine Urobilinogen 1.0 H Ur Leukocyte Esterase Negative Urine Glucose 100 H Last Vital Signs Temp 36.7 C 08/10/25 04:42 Pulse 91 H 08/10/25 12:00 Resp 16 08/10/25 04:42 BP 92/39 L 08/10/25 11:45 Pulse Ox 91 L 08/10/25 12:00 VTE Prohylaxis Risk Level: Moderate/High Risk Contraindications: None Prophylaxis: Pharmacologic Time Spent Time spent with Patient: 40-54 minutes Time was spent: preparing to see the patient(eg.review tests), obtaining and/or reviewing separately otained hiistory, ordering medications,tests, procedures, referring, communicating with other health child care worker, indepentently interpreting results, counseling the patient and care coordination
--- NOTE | 2025-08-10 13:04 | W.PC.ACHO ---
Registration Status: ADM SEN Primary Language: Preferred Language: Telugu ED Information & Data Chief Complaint Recheck 08/10/25 05:01 Triage Note [facility]S from [facility] pt had 08/10/25 04:42 recent sx on right hip. pain 10 this evening, pt unsure why, maybe from movement. pt ambulating, pain with. pain okay when supine. [facility] denies pain medication for coverage. Medical / Surgical History (Last Reviewed 12/29/24 @ 12:59 by Elisa Phillips MD) Benign essential hypertension Diabetes mellitus due to underlying condition, controlled, with diabetic neuropathy, without long-term current use of insulin Hx of ischemic left MCA stroke (~2013) Chronic anticoagulation (03/22/14) (Last Reviewed 12/29/24 @ 12:59 by Elisa Phillips MD) Status post fracture of left tibia Most Recent Vital Signs Temperature 36.7 C 08/10/25 04:42 Temperature Source Oral 08/10/25 04:42 Pulse 91 H 08/10/25 12:00 Respiratory Rate 16 08/10/25 04:42 Respiratory Effort Normal, Non-Labored 08/10/25 06:42 Respiratory Depth Normal 08/10/25 06:42 Blood Pressure 92/39 L 08/10/25 11:45 Blood Pressure Mean 56 08/10/25 11:45 Blood Pressure Position Supine 08/10/25 04:42 Pulse Oximetry 91 L 08/10/25 12:00 Oxygen Delivery Method Room Air 08/10/25 04:42 Oxygen Flow Rate 0 08/10/25 04:42 Pain Level 5 08/10/25 04:42 Allergies spider venom Allergy (Intermediate, Verified 08/04/25 12:42) Swelling IV IV Catheter Type [Right Peripheral IV Antecubital] IV Catheter Gauge [Right 20 Antecubital] Diet Orders Category Date Time Status Regular/Normal [DIET] Nutrition 08/10/25 Dinner Active Diagnostics 08/10/25 08/10/25 08/10/25 Range/Units 12:15 10:23 07:02 WBC (4.4-10.8) 10^3/uL RBC (3.93-5.22) 10^6/uL Hgb 7.5 L (11.2-15.7) g/dL Hct 21.9 L (36.0-46.0) % MCV (80-95) fL MCH (27.0-33.0) pg MCHC (32.0-36.0) % RDW (11.7-14.6) % Plt Count (130-400) 10^3/uL MPV (8.0-11.0) fL Immature Gran % % Neutrophils % % Lymphocytes % % Monocytes % % Eosinophils % % Basophils % % Nucleated RBC % (0.0-0.3) % Absolute Neutrophils (1.2-6.7) 10^3/uL Absolute Lymphocytes (1.2-3.4) 10^3/uL Absolute Monocytes (0.1-0.8) 10^3/uL Absolute Eosinophils (0.0-0.7) 10^3/uL Absolute Basophils (0.0-0.2) 10^3/uL Sodium 137 (136-145) mmol/L Potassium 3.7 (3.5-5.1) mmol/L Chloride 98 (98-107) mmol/L Carbon Dioxide 30.7 (20.0-31.0) mmol/L Anion Gap 8.8 (3-11) mmol/L BUN 25 H (9-23) mg/dL Creatinine 0.80 (0.55-1.02) mg/dL Est GFR (CKD-EPI 2020) 68.94 (mL/min/1.73m2) Glucose 176 H (74-106) mg/dL Calcium 8.2 L (8.3-10.6) mg/dL Total Bilirubin (0.2-1.2) mg/dL AST (<34) U/L ALT (10-49) U/L Alkaline Phosphatase (46-116) U/L Total Protein (5.7-8.2) g/dL Albumin (3.2-5.0) g/dL Lipase (<53) U/L Urine Color Yellow (Yellow) Urine Clarity Clear (Clear) Urine pH 6.0 (5-8) Ur Specific [place] 1.010 (1.005-1.025) Urine Protein Negative (Neg-Trace) mg/dL Urine Ketones 15 H (Negative) mg/dL Urine Blood Negative (Negative) Urine Nitrite Negative (Negative) Urine Bilirubin Negative (Negative) Urine Urobilinogen 1.0 H (Up to 0.2) mg/dL Ur Leukocyte Esterase Negative (Negative) Urine Glucose 100 H (Negative) mg/dL MRSA (TEM-PCR) Pending 08/10/25 Range/Units 06:32 WBC 11.63 H (4.4-10.8) 10^3/uL RBC 2.82 L (3.93-5.22) 10^6/uL Hgb 8.7 L (11.2-15.7) g/dL Hct 25.8 L (36.0-46.0) % MCV 92 (80-95) fL MCH 30.9 (27.0-33.0) pg MCHC 33.7 (32.0-36.0) % RDW 12.6 (11.7-14.6) % Plt Count 221 (130-400) 10^3/uL MPV 10.1 (8.0-11.0) fL Immature Gran % 0.5 % Neutrophils % 87.1 % Lymphocytes % 6.6 % Monocytes % 5.5 % Eosinophils % 0.1 % Basophils % 0.2 % Nucleated RBC % 0.0 (0.0-0.3) % Absolute Neutrophils 10.13 H (1.2-6.7) 10^3/uL Absolute Lymphocytes 0.77 L (1.2-3.4) 10^3/uL Absolute Monocytes 0.64 (0.1-0.8) 10^3/uL Absolute Eosinophils 0.01 (0.0-0.7) 10^3/uL Absolute Basophils 0.02 (0.0-0.2) 10^3/uL Sodium 136 (136-145) mmol/L Potassium 3.7 (3.5-5.1) mmol/L Chloride 95 L (98-107) mmol/L Carbon Dioxide 31.1 H (20.0-31.0) mmol/L Anion Gap 9.7 (3-11) mmol/L BUN 26 H (9-23) mg/dL Creatinine 0.80 (0.55-1.02) mg/dL Est GFR (CKD-EPI 2020) 68.94 (mL/min/1.73m2) Glucose 200 H (74-106) mg/dL Calcium 8.9 (8.3-10.6) mg/dL Total Bilirubin 1.6 H (0.2-1.2) mg/dL AST 26 (<34) U/L ALT 11 (10-49) U/L Alkaline Phosphatase 60 (46-116) U/L Total Protein 6.9 (5.7-8.2) g/dL Albumin 4.0 (3.2-5.0) g/dL Lipase 25 (<53) U/L Urine Color (Yellow) Urine Clarity (Clear) Urine pH (5-8) Ur Specific [place] (1.005-1.025) Urine Protein (Neg-Trace) mg/dL Urine Ketones (Negative) mg/dL Urine Blood (Negative) Urine Nitrite (Negative) Urine Bilirubin (Negative) Urine Urobilinogen (Up to 0.2) mg/dL Ur Leukocyte Esterase (Negative) Urine Glucose (Negative) mg/dL MRSA (TEM-PCR) Intake and Output - 24 Hour Total 08/10/25 04:38 thru 08/10/25 08:33 Intake Total 500 Output Total 1900 Balance -1400 Weight 79.6 kg Intake: IV 500 Output: Urine 1400 Emesis 500 Other: Urine Color Yellow Urine Appearance Clear Emesis Description Retching Projectile Undigested Food Bile Urinary Catheter Urinary Catheter Date of 08/10/25 Insertion [Urethral (Elias)] Time of insertion [Urethral ( 07:05 Elias)] Falls Risk Assessment History of Falls Previous History 08/10/25 04:47 Contributing Factors Impairments 08/10/25 04:47 Ambulatory Aids Independent 08/10/25 04:47 Tubes/Lines None 08/10/25 04:47 Gait Evaluation W/any additional score 08/10/25 04:47 Cognition No cognitive impairment 08/10/25 04:47 Fall Total Score 38 08/10/25 04:47 Level of Risk Moderate Risk 08/10/25 04:47 Attestation Statement: By documenting the first initial, last name, and credentials of the reporting nurse below, both parties acknowledge that all relevant information regarding the patient handoff has been communicated, and that all questions have been addressed to ensure continuity and safety of care. Additional Patient Information/Comments: Pt arrived on unit via stretcher. Pt here from [facility] rehab after dc from here . Pt was vomiting and sent back to ED. BP's are running soft. Zofran and pain meds given and she is comfortable now. call gee left within reach. Report Received From: MATTHIEU Loyola
[2025-08-10 15:28] LABS: MRSA PCR Negative (Negative)
[2025-08-10] MEDS: Acetaminophen 325 MG TAB 650 MG PO (21:36)
[2025-08-10] MEDS: Enoxaparin 40 MG/0.4 ML SYR SC (21:36)
[2025-08-10] MEDS: oxyCODONE 5 MG TAB PO (21:37)
[2025-08-10] MEDS: Simvastatin 40 MG TAB 80 MG PO (21:37)
--- NOTE | 2025-08-11 | DI.RAD_ITS ---
Exam(s) XR ABDOMEN FLAT PLATE EXAM: 2D digital imaging was performed. CLINICAL HISTORY: portable KUB please. COMPARISON: CT CT ABDOMEN PELVIS WO from 08/10/2025 TECHNIQUE: Supine views of the abdomen performed. FINDINGS: BOWEL GAS PATTERN: The stomach and small bowel are not abnormally distended. There is gaseous distension of the colon which also contains moderate quantity of fecal material. CALCIFICATIONS: No visible radiopaque calcifications. OSSEOUS STRUCTURES: Hardware in right proximal femur. Degenerative changes in the spine. VISUALIZED LUNG BASES: Clear. SOFT TISSUES: Unremarkable gallstone calcified uterine fibroid. IMPRESSION: 1. Nonobstructive bowel gas pattern. 2. [id number] gaseous distension of the colon. DATA REPOSITORY: RADIATION DOSE DELIVERED:
[2025-08-11 07:29] LABS: HCT 21.7 % (36.0-46.0)
[2025-08-11 07:42] LABS: HGB 7.0 g/dL (11.2-15.7)
[2025-08-11 07:53] LABS: Anion Gap 9.5 mmol/L (3-11); BUN 25 mg/dL (9-23); CO2 30.8 mmol/L (20.0-31.0); Calcium 8.4 mg/dL (8.3-10.6); Chloride 100 mmol/L (98-107); Glucose 130 mg/dL (74-106); Potassium 3.9 mmol/L (3.5-5.1); Sodium 140 mmol/L (136-145)
[2025-08-11 08:01] VITALS: BP 111/69; PULSE 91; RESP 16; TEMP 36.4; O2SAT 92
[2025-08-11 09:13] LABS: HCT 22.1 % (36.0-46.0); HGB 7.3 g/dL (11.2-15.7)
[2025-08-11] MEDS: Acetaminophen 325 MG TAB 650 MG PO ×2 (09:20→17:01)
[2025-08-11] MEDS: Sennosides/Docusate Sodium TAB 1 TAB PO ×2 (09:20→20:22)
[2025-08-11] MEDS: Metoprolol CR 100 MG TABCR PO (09:20)
[2025-08-11] MEDS: Lisinopril 20 MG TAB 40 MG PO (09:20)
[2025-08-11] MEDS: Polyethylene Glycol 3350 17 GM PACKET PO (09:21)
--- NOTE | 2025-08-11 09:53 | W.PM.DS.N ---
Date of service: 08/11/25 Time of Service: 08:00 DS: Diagnosis Discharge Diagnosis (1) Postoperative pain, acute, hip: Status: Acute Asessment and Plan: Likely undermedicated for pain on day prior to arrival Restarted oxycodone PRN dosing, patient has no problems asking for it Physical therapy Renal function intact Postoperative anemia downtrend, Aug 11 morning hemoglobin 7.0, rechecked at 7.3. No transfusion, recommend daily H&H until hemoglobin above 8. VTE chemoprophylaxis with enoxaparin while hospitalized Resume ASA 81 BID upon discharge, continue until post-op appointment (2) Nausea & vomiting: Status: Acute Asessment and Plan: Improved after she received pain meds and anti-emetics PRN ondansetron (3) Abnormal CT scan, kidney: Status: Acute Asessment and Plan: Incidental CT finding on previous admission: There is an exophytic lobulated and enhancing mass from the posterior medial aspect of the right kidney measuring 2 by 2.5 x 3.8 cm Not discussed with patient due to her confusion (4) Hx of ischemic left MCA stroke: Asessment and Plan: History of multiple CVAs Residual right hemiparesis Continue clopidogrel (5) Essential hypertension: Status: Chronic Asessment and Plan: Continue home regimen Discharge Plan Disposition Patient Disposition: Intermediate Facility(SNF) Anticipated Discharge Date/Time: 08/11/25 09:00 Condition: Fair Discharge Details Reason For Visit: Vomiting Admit Date/Time: 08/10/25 12:53 Admit Provider: Zhang Alvarez Attending Provider: Zhang Alvarez Primary Care Provider: Marleen Boyle Hospital Course Hospital Course: Viry Ward is an 80 year old woman presenting August 10 with vomiting and pain, having been discharged August 09 for hospitalization for right hip surgery. Patient may have had delay with pain medication. Patient began to vomit after receiving tylenol. She improved with fluids, anti-emetics and pain medication. In the morning, her hemoglobin was low 7.0, improved to 7.3 on recheck, and transfusion was deferred in keeping with expected, improving postoperative anemia. Home Meds and New Rx's Prescriptions: Continued clopidogrel 75 mg tablet 75 mg PO DAILY Qty: 90 3RF cholecalciferol (vitamin D3) [Vitamin D3] 2,000 UNIT capsule 2,000 unit PO DAILY Qty: 90 lisinopril [Zestril] 40 mg tablet 40 mg PO DAILY Qty: 90 4RF hydrochlorothiazide 25 mg tablet 25 mg PO DAILY Qty: 90 1RF metoprolol succinate 100 mg tablet extended release 24 hr 100 mg PO DAILY Qty: 90 3RF simvastatin 80 mg tablet 80 mg PO QPM Rx Instructions: take one tablet daily acetaminophen 325 mg Tablet 650 mg PO Q6H PRN PRNQty: 0 0RF oxycodone 5 mg Tablet 5 - 7.5 mg PO Q4H PRN PRNQty: 0 0RF aspirin 81 mg tablet,delayed release (DR/EC) 81 mg PO BID Qty: 60 0RF Discharge Instructions Instructions: Hip Pain ED Stand Alone Forms: Portal Information Referrals: Marleen Boyle NP [Primary Care Provider, Medicine] Activity:: Activity as Tolerated Equipment/Supplies:: No Equipment Needed Diet:: As Tolerated DS: Summary Time Spent with Patient providing and/or coordinating discharge services: Greater than 30 minutes Status at Discharge Functional status at discharge: uses cane/walker Overall status at discharge: patient is progressing back to baseline Mental Status: mental status grossly normal Speech and Movement: speech and movement normal Mood: congruent mood Affect: normal affect Quality:SDOH Health Related Social Needs: Health related social needs risk of homeless transpo insecurity material hardship daily activities Health related social needs details Pt will need assistance with ADLs due to recent fracture from a fall prompting this admission Exam Psych Mental Status: mental status grossly normal Speech and Movement: speech and movement normal Mood: congruent mood Affect: normal affect DS: Data Vitals/I&O Vitals and I&O: Vital Signs Temperature 36.4 C L 08/11/25 08:01 Temperature Source Temporal Artery Scan 08/11/25 08:01 Pulse 91 H 08/11/25 08:01 Respiratory Rate 16 08/11/25 08:01 Respiratory Effort Normal 08/10/25 13:29 Respiratory Depth Normal 08/10/25 13:29 Respiratory Pattern Normal 08/10/25 13:29 Blood Pressure 111/69 08/11/25 08:01 Blood Pressure Mean 83 08/11/25 08:01 Blood Pressure Position Supine 08/10/25 04:42 Pulse Oximetry 92 08/11/25 08:01 Oxygen Delivery Method Room Air 08/11/25 08:01 Oxygen Flow Rate 0 08/11/25 08:01 Pain Level 8 08/10/25 21:37 Comment pt sleeping 08/11/25 05:22 Intake & Output 08/10/25 08/10/25 08/11/25 11:59 23:59 11:59 Intake Total 500 / 700 200 / 700 Output Total 1900 / 2225 325 / 2225 200 / 200 Balance -1400 / -1525 -125 / -1525 -200 / -200 Weight 79.6 kg Intake: IV 500 / 500 Oral 200 / 200 Output: Urine 1400 / 1725 325 / 1725 200 / 200 Emesis 500 / 500 Other: Urine Color Yellow Yellow Yellow Urine Appearance Clear Clear Cloudy Emesis Description Retching Projectile Undigested Food Bile Data Completed and Pending Pending Labs at Discharge: 08/10/25 08/10/25 08/10/25 06:32 07:02 10:23 WBC 11.63 H RBC 2.82 L Hgb 8.7 L 7.5 L Hct 25.8 L 21.9 L MCV 92 MCH 30.9 MCHC 33.7 RDW 12.6 Plt Count 221 MPV 10.1 Immature Gran % 0.5 Neutrophils % 87.1 Lymphocytes % 6.6 Monocytes % 5.5 Eosinophils % 0.1 Basophils % 0.2 Nucleated RBC % 0.0 Absolute Neutrophils 10.13 H Absolute Lymphocytes 0.77 L Absolute Monocytes 0.64 Absolute Eosinophils 0.01 Absolute Basophils 0.02 Sodium 136 137 Potassium 3.7 3.7 Chloride 95 L 98 Carbon Dioxide 31.1 H 30.7 Anion Gap 9.7 8.8 BUN 26 H 25 H Creatinine 0.80 0.80 Est GFR (CKD-EPI 2020) 68.94 68.94 Glucose 200 H 176 H Calcium 8.9 8.2 L Total Bilirubin 1.6 H AST 26 ALT 11 Alkaline Phosphatase 60 Total Protein 6.9 Albumin 4.0 Lipase 25 Urine Color Yellow Urine Clarity Clear Urine pH 6.0 Ur Specific [place] 1.010 Urine Protein Negative Urine Ketones 15 H Urine Blood Negative Urine Nitrite Negative Urine Bilirubin Negative Urine Urobilinogen 1.0 H Ur Leukocyte Esterase Negative Urine Glucose 100 H MRSA (TEM-PCR) ABO/Rh Antibody Screen Crossmatch 08/10/25 08/11/25 08/11/25 12:15 07:12 09:00 WBC RBC Hgb 7.0 L* 7.3 L Hct 21.7 L 22.1 L MCV MCH MCHC RDW Plt Count MPV Immature Gran % Neutrophils % Lymphocytes % Monocytes % Eosinophils % Basophils % Nucleated RBC % Absolute Neutrophils Absolute Lymphocytes Absolute Monocytes Absolute Eosinophils Absolute Basophils Sodium 140 Potassium 3.9 Chloride 100 Carbon Dioxide 30.8 Anion Gap 9.5 BUN 25 H Creatinine 0.84 Est GFR (CKD-EPI 2020) 65.17 Glucose 130 H Calcium 8.4 Total Bilirubin AST ALT Alkaline Phosphatase Total Protein Albumin Lipase Urine Color Urine Clarity Urine pH Ur Specific [place] Urine Protein Urine Ketones Urine Blood Urine Nitrite Urine Bilirubin Urine Urobilinogen Ur Leukocyte Esterase Urine Glucose MRSA (TEM-PCR) Negative ABO/Rh Pending Antibody Screen Pending Crossmatch See Detail PFSH All Active Problems (Updated 08/10/25 @ 19:17 by Zhang Alvarez MD) Nausea & vomiting (Acute) Postoperative pain, acute, hip (Acute) Gastroparesis (Acute) Vomiting (Acute) Hip pain, right (Acute) Abnormal head CT (Acute) Closed comminuted intertrochanteric fracture of right femur (Acute) Abnormal CT scan, kidney (Acute) Fall (Acute) Intracranial bleed (Acute) Trochanteric fracture of right femur (Acute) Closed intertrochanteric fracture of right hip (Acute 08/04/25) Short-term memory loss (Chronic) Due to stroke in 2011. They feel it is stable. Carotid stenosis, right (Acute) Carotid occlusion, left (Chronic) Essential hypertension (Chronic 07/27/13) Hyperlipidemia (Chronic 12/19/11) Vitamin D deficiency (Chronic) Medical History Hx of ischemic left MCA stroke (~2013) 09-10-2011: Left MCA infarct sec. to thrombus L ICA (R)hemiparesis,expressive aphasia/(R) visual field cut/impaired mobility : TIA Chronic anticoagulation (03/22/14) CVA + TIA ,goal inr 2-3; changed to plavix 05/2022 Surgical History Status post fracture of left tibia Family History Mother , 90's Heart disease Father , 90's No problems noted. Sister , 70's Heart disease Sister , 60's Cancer Social History (Updated 03/17/25 @ 10:13 by Ana M Feliciano MD) Smoking/Tobacco Use Status: Former Tobacco Use tobacco type: cigarettes Quit Date: 08/26/11 Tobacco: How many years used: 40 Second Hand Exposure: Yes Smoking risk assessment performed?: Yes Alcohol Intake: current Alcohol Intake frequency: holidays/special occasions only Alcohol type: wine and hard liquor Drug use: Never Substance use type: does not use Caregiver/Support person: Yes Household members: spouse Housing: long term Number of Children: 0 Communication Needs: None Education Level: other Do you need help understanding health information?: Rarely Pets and animals: Yes Pets and animals: cat(s) Sexually active: No Do you think of yourself as: straight/heterosexual Current gender identity: female What is your relationship status?: How often do you talk on the phone with friends or family?: once per week How often do you get together with friends or relatives?: decline to answer How often do you attend rastafarian or rastafari services?: decline to answer Do you belong to any clubs or organized social groups?: no Panel score (0-1 are the most socially isolated patients): 1 Rayna/Yarsani: No preference Seatbelt use: always Helmet use: No Drive intox or ride w/intox food service driver: No Time Spent with Patient Time Spent with Patient: <45 minutes Time was spent: preparing to see the patient(eg.review tests), obtaining and/or reviewing separately otained hiistory, ordering medications,tests, procedures, referring, communicating with other health live in caregiver, indepentently interpreting results, counseling the patient and care coordination
--- NOTE | 2025-08-11 10:18 | INITIAL_ITS ---
Care Management Initial Assmt Initial Assessment Reason for Hospitalization: vomiting Functional Status/Living Situation Patient Presentation: Viry lives in a single family home in [place] with her Sridhar. He has been sick and hospitalized for several weeks and neighbors have been helping Viry. Unfortunately, she fell and broke her hip on 08/04/25 and needed to be hospitalized. Her hip was repaired and she was transferred to [facility] on 08/09/25 for short time rehab. Her Sridhar is there for short term rehab and they were very happy to be reunited. Yesterday Viry vomited so she was sent back to the ED and was subsequently admitted in Observation status. She was to be discharged back to the rehab today however they declined to take her back, citing that they did not feel she is clinically ready. Viry's Hgb was 7.0 yesterday and 7.3 today. They felt it should be higher. A repeat at 4 pm today indicated that it remains at 7.3. Additionally, Viry has no BM recorded for the past week. Her last recorded stool at [facility] was on 08/04/25. Viry will remain at [facility] at least until the morning. Town of Residence: [place] Resides with: Spouse ( Sridhar) Significant Other/Family: Out of area (niece in [place] and nephew in [place]) Natural Supports: niece, nephew and friend/neighbors Pauline and Roland El Employment Status: Retired Instrumental Activities of Daily Living (ADLs): Requires support Medications Medication Management: No Issues/Barriers identified Physical Functioning/Mobility Assistive Device: FWW Advance Directives Advance Directives: Do you have an Advance Directive: Y , 08:13 AD On File at [facility]: Y 10/23/12, 15:35 Date Asked 08/04/25 08/10/25, 13:53 AD Date Reviewed 08/10/25 08/10/25, 13:53 COLST On File at [facility] No 03/12/25, 16:52 COLST Date Scanned Code Status Resuscitation Status Full Code Portal Pt does not currently have a portal and education provided: Yes Insurance Coverage/Financial Issues Insurance: Medicare Care Team Visit Care Team Role Provider Type Marleen Boyle NP Primary Care Provider NURSE PRACTITIONER Debbie Haynes RDN, ANDREINA Other Providers BILLING AND ACCOUNTING STAFF ASSISTANT InPatient Radhames Connerseven Other Providers OTHER Du Kapadia RDN Other Providers BILLING AND ACCOUNTING STAFF ASSISTANT Roland Sheffield MD Emergency Provider [facility] STAFF PHYSICIAN Zhang Alvarez MD Admit Provider [facility] STAFF PHYSICIAN Attending Provider Discharge Potential Discharge Needs: Other (SNF) Anticipated Barriers to Discharge: Bed availability (willingness of rehab to accept her back) Transportation: [facility] (possibly EMS) Plan: Viry will be transferred back to [facility] when they feel she is clinically ready and are willing to accept her. She will follow up with the facility providers and plan of care and transport via [facility]/EMS. CM will follow. Social Determinants of Health Screening Will the Patient Participate in the Screening?: Unable to obtain Do you speak a language other than [place] at home?: No Does the patient want assistance with any of the above?: No Comments: lives at [facility] All Active Problems Nausea & vomiting (Acute) Postoperative pain, acute, hip (Acute) Gastroparesis (Acute) Vomiting (Acute) Hip pain, right (Acute) Abnormal head CT (Acute) Closed comminuted intertrochanteric fracture of right femur (Acute) Abnormal CT scan, kidney (Acute) Fall (Acute) Intracranial bleed (Acute) Trochanteric fracture of right femur (Acute) Closed intertrochanteric fracture of right hip (Acute 08/04/25) Short-term memory loss (Chronic) Due to stroke in 2011. They feel it is stable. Carotid stenosis, right (Acute) Carotid occlusion, left (Chronic) Essential hypertension (Chronic 07/27/13) Hyperlipidemia (Chronic 12/19/11) Vitamin D deficiency (Chronic) Medical History Benign essential hypertension Diabetes mellitus due to underlying condition, controlled, with diabetic neuropathy, without long-term current use of insulin Hx of ischemic left MCA stroke (~2013) 09-10-2011: Left MCA infarct sec. to thrombus L ICA (R)hemiparesis,expressive aphasia/(R) visual field cut/impaired mobility : TIA Chronic anticoagulation (03/22/14) CVA + TIA ,goal inr 2-3; changed to plavix 05/2022 Surgical History Status post fracture of left tibia Family History Mother , 90's Heart disease Father , 90's No problems noted. Sister , 70's Heart disease Sister , 60's Cancer Social History Smoking/Tobacco Use Status: Former Tobacco Use tobacco type: cigarettes Quit Date: 08/26/11 Tobacco: How many years used: 40 Second Hand Exposure: Yes Smoking risk assessment performed?: Yes Alcohol Intake: current Alcohol Intake frequency: holidays/special occasions only Alcohol type: wine and hard liquor Drug use: Never Substance use type: does not use Caregiver/Support person: Yes Household members: spouse Housing: detention Number of Children: 0 Communication Needs: None Education Level: other Do you need help understanding health information?: Rarely Pets and animals: Yes Pets and animals: cat(s) Sexually active: No Do you think of yourself as: straight/heterosexual Current gender identity: female What is your relationship status?: How often do you talk on the phone with friends or family?: once per week How often do you get together with friends or relatives?: decline to answer How often do you attend confucianist or gnosticist services?: decline to answer Do you belong to any clubs or organized social groups?: no Panel score (0-1 are the most socially isolated patients): 1 Rayna/Muslim: No preference Seatbelt use: always Helmet use: No Drive intox or ride w/intox mail truck driver: No Readmission Within the Past 30 Days Yes or No: No Date of First Admission Date of 1st Admission: 08/04/25 Date of this Admission Date of Admission: 08/10/25 This admission was: Through ED Office Visit Since 1st Admission Have you seen your PCP in the office since discharge?: No Assessment for Readmission Summary of readmission circumstances, based upon interviews: Viry was hospitalized from 08/04/25 until 08/09/25 when she was transferred to [facility] for rehab. At 4:30 am on 08/10/25 she was brought to the ED after an episode of hip pain and vomiting. She was admitted in Observation status. She had only been at the rehab for about 12 hours so had not seen therese alvarez or had any follow up appointments. She will return to [facility] when clinically stable.
[2025-08-11 11:54] VITALS: BP 88/66; PULSE 64; RESP 19; TEMP 36.4; O2SAT 94
[2025-08-11] MEDS: oxyCODONE 5 MG TAB PO ×2 (11:56→17:00)
[2025-08-11 11:58] VITALS: BP 108/53
--- NOTE | 2025-08-11 14:24 | W.PM.PROGNOT ---
Objective Last Vital Signs Temp 36.4 C L 08/11/25 11:54 Pulse 64 08/11/25 11:54 Resp 19 08/11/25 11:54 BP 108/53 L 08/11/25 11:58 Pulse Ox 94 08/11/25 11:54 Laboratory Results - last 24 hr 08/10/25 08/11/25 08/11/25 12:15 07:12 09:00 Hgb 7.0 L* 7.3 L Hct 21.7 L 22.1 L Sodium 140 Potassium 3.9 Chloride 100 Carbon Dioxide 30.8 Anion Gap 9.5 BUN 25 H Creatinine 0.84 Est GFR (CKD-EPI 2020) 65.17 Glucose 130 H Calcium 8.4 MRSA (TEM-PCR) Negative ABO/Rh O Positive Antibody Screen NEGATIVE Crossmatch See Detail VTE Prohylaxis Risk Level: Moderate/High Risk Contraindications: None Prophylaxis: Pharmacologic
--- NOTE | 2025-08-11 15:06 | PT.INIE ---
PT Notes Visit Reasons: Vomiting Physical Therapy Inpatient Initial Evaluation Date: 08/11/2025 Referring Doctor: Antonio Holcomb MD PT Orders: PT CONSULT: S/P Ortho Surgery Precautions: Fall. Standard. Activity as tolerated. WBAT through the R LE with AD. Impaired safety awareness r/t pre-existing short-term memory loss. 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 Patient has been seen by inpatient PT from 08/06/2025 through 08/09/2025 and was discharged to subacute rehab on 08/09/2025. Another referral was sent for continued rehabilitation S/P IMN of R IT fracture in anticipation of return to SNF when medically stable. PMHX: All Active Problems (Updated 08/10/25 @ 19:17 by Zhang Alvarez MD) Nausea & vomiting (Acute) Postoperative pain, acute, hip (Acute) Gastroparesis (Acute) Vomiting (Acute) Hip pain, right (Acute) Abnormal head CT (Acute) Closed comminuted intertrochanteric fracture of right femur (Acute) Abnormal CT scan, kidney (Acute) Fall (Acute) Intracranial bleed (Acute) Trochanteric fracture of right femur (Acute) Closed intertrochanteric fracture of right hip (Acute 08/04/25) Short-term memory loss (Chronic) Due to stroke in 2011. They feel it is stable. Carotid stenosis, right (Acute) Carotid occlusion, left (Chronic) Essential hypertension (Chronic 07/27/13) Hyperlipidemia (Chronic 12/19/11) Vitamin D deficiency (Chronic) Medical History Hx of ischemic left MCA stroke (~2013) 09-10-2011: Left MCA infarct sec. to thrombus L ICA (R)hemiparesis,expressive aphasia/(R) visual field cut/impaired mobility : TIA Chronic anticoagulation (03/22/14) CVA + TIA ,goal inr 2-3; changed to plavix 05/2022 Surgical History Status post fracture of left tibia Social History/Home Situation: Viry lived at home with who has been her primary caregiver. has had his own medical issues and required acute hospitalization at [facility] and continued admission here at [facility] which has posed a great challenge with care giving for patient. is currently in a SNF with discharge plan undetermined at this time. Patient's neighbors have been intermittently helping oversee patient's safety at home. Equipment Owned/DME: FWW Subjective: Cautious and anxious about moving but was agreeable to slowly moving out of bed. Gestured to favor R LE throughout due to pain level. Nurse Shira has been aware of pain complaint and has been managing symptom, patient received pain medication prior to today's session. Objective: General Observation: Patient resting in bed. Appeared anxious with movement. Mental Status: Alert and oriented as to person. Able to pay attention, had difficulty with focus, and required repetition of instruction Pain: Minimal to moderate pain throughout mobility performance Vital Signs: WNL as closely monitored by nursing staff ROM: Right Upper Extremity: Grossly WFL. Left Upper Extremity:? Grossly WFL. Right Lower Extremity: Able to slide R LE about 10 degrees to edge of bed before pain report, with assistance was able to sit at edge of bed with hip and knee at 90 degree flexion Left Lower Extremity: Grossly WFL Strength: Right Upper Extremity: Grossly 4-/5. Except shoulder flex 3-/5 Left Upper Extremity: Grossly 4-/5. Except shoulder flex 3-/5 Right Lower Extremity: Hip Flex 3-/5, Hip abduct 2-/5, Knee flex 3-/5 Knee ext 3-/5 Left Lower Extremity: Grossly 4-/5 Bed Mobility/Transfers: Moderate to maximal cueing provided for use of B hands as needed for support, movement sequence, AD management, and posture to reduce fall risk and minimize pain report Supine to sit with moderate assist of 2 Sit to stand with minimal assist of 2 with verbal and tactile cues for safe/correct technique Stand to sit with minimal assist of 2 with verbal and tactile cues for safe/correct technique Scoot back on chair minimal assist of 2 with verbal and tactile cues for safe/correct technique Gait: 10 total small steps from edge of bed to bedside recliner with moderate to maximal verbal cueing provided for AD management, stepping technique, turning, and posture to minimize pain report and reduce fall risk. Highly anxious about weight bearing through the R but Nurse Shira was able to premedicate patient and so she was able to slowly work through her pain with encouragement and reassurance. [employer] Dada assiated for safety during this mobility performance. Stairs: Not assessed for today Balance: Static Sitting:Fair Dynamic Sitting: Fair Static Standing: Poor Dynamic Standing: Unable Special Tests: Mobility Limitations Standardized Measure [facility] AM-PAC 6 clicks Basic Mobility Inpatient Short Form: Raw Score:12? CMS Score: 69% deficit? Informed Consent/Education:? Patient was instructed in purpose of PT consult and plan of care. Agreeable to proceed with established PT POC to achieve personal goals. Assessment: On POD 6 S/P ORIF with R hip IMN for R comminuted intertrochanteric fracture. Patient needed frequent instrcution for redirection and staying on task. Was anxious about moving but responsded well to calm and slow approach. Patient presents with clinical signs and symptoms consistent with current/admitting diagnoses that have resulted to mobility limitations, gait instability, generalized weakness, and overall ADL decline as demonstrated by the following impairment level findings: 1.? Decreased strength to B UE/LE major muscle groups 2.? Impaired sitting/standing balance 3.? Impaired activity tolerance 4.? Limitation of joint range of motion in R Hip 5.? Pain in R hip and thigh 6. Heightened response to pain, anticipates pain Impairments are contributing to the following functional limitations: 1.? Decline in bed mobility skills 2.? Decline in transfer skills 3.? Difficulty with ambulation without assistive device and physical assistance 4.? Increased completion time for mobility ADL performance 5.? Increased risk for falls 6.? Difficulty with managing steps alone safely Patient is assessed as a 03208 moderate complexity based on the following: History:80-year-old female with past medical history as indicated above Examination: Demonstrable impairment in strength, balance, and mobility level with underlying impairments and functional limitations as exhibited above as well as deficit score of 69% utilizing the [facility] Mobility Inpatient Short Form Presentation: Evolving Decision Makin moderate complexity Goals: Goals X1 week 1. Supine-Sit independent 2. Sit-Supine independent 3. Sit-Stand contact guard assist with FWW 4. Stand-Sit contact guard assist with FWW 5. Bed-Chair contact guard assist with FWW 6. Chair-Bed contact guard assist with FWW 7. Gait on level surface with contact guard assist with FWW for at least 150 feet without report of pain 8. Contact guard assist with stair negotiation while holding onto 2 rails for at least 4 steps without report of pain nor dyspnea 9. Good static and dynamic standing balance/tolerance Plan of Care/Treatment Plan: 1-2x/day, 7 days/week x 1 week. Plan of care has been reviewed with the [employer] providing the service under Physical Therapy direction. Initiate Physical Therapy intervention for pain management as needed, strengthening, bed mobility, transfers, gait, stairs, balance training, and use of assistive device. DISCHARGE RECOMMENDATIONS: SNF for continued post-op rehabilitation of R hip IMN TREATMENT CODE/TIME: 31608 x 28 minutes for 1 minute (15:06?15:24). Thank you for the opportunity to participate in the care of this patient. Ankita Barrientos PT, DPT, CLT [facility] [place], [place]
[2025-08-11] MEDS: Nulytely 4000 ML BTL 1000 ML PO (15:15)
--- NOTE | 2025-08-11 15:51 | PCNE_ITS ---
Date of service: 08/11/25 Time of Service: 15:00 History of Present Illness Narrative: Mrs. Baires is an 80 y/o F currently hospitalized at [facility] 09/27 uncontrolled pain/vomit after discharge day prior 09/27 R femur fracture w/fixation 08/05; PMHx sig for multiple CVAs and cognitive impairment Hospital course: admitted 08/04- 2/ fall w/head strike and increased pain; ortho performed nail fixation of R femur on 08/05; CT found R renal mass w/recommendation for outpatient f/u; d/c'd to [facility]; re-presented to ED on 08/10 w/pain and vomiting after oxycodone dose; pain increased wWB; some concerns w/SBO and gastroparesis; started on Miralax and senna; oxycodone provided; N/V improved w/Zofran, oxycodone helping w/pain, not covering full 4 hours; this admission has not been eating, limited fluid intake, has not bee out of bed; starting go-lytly today to help move bowels 1st attempt Viry is lying in her hospital bed, lights off, requests PC return later. She is scared and confused today 2nd attempt after PT, Viry sitting in recliner, she transfers w/assistance from PT; she reports her nausea and pain are better but not perfect, she denies needing any nausea medications but would like to have better pain control. She lives in [address] w/ Sridhar. unfortunately Sridhar is also sick, and is currently across the street at [facility]. Viry is worried about him and would like the chance to speak to him today. Earlier today Viry told staff to just let me go; we reviewed this during our visit and she agrees she is feeling that way, but is not sure if she would want to be a DNR/I, she feels that she might want CPR attempted/tried, even a little bit, to see, but does not want to be kept alive on machines or have a long attempt. 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 and pt inability to report PRN pain requests continue oxycodone q4h PRN (3) Gastroparesis: Status: Acute Assessment and plan: w/sig stool in bowels miralax and senna this morning go-lytly started this afternoon if needed suppository (4) Abnormal CT scan, kidney: Status: Acute Assessment and plan: need for outpatient review - best to include HCA in this conversation regarding GOC (5) Fall: Status: Acute Assessment and plan: l/t hip fracture (6) Short-term memory loss: Status: Chronic (7) Palliative care encounter: Status: Acute Assessment and plan: PC to continue to follow, anticipate outpatient f/u - f/u to review GOC, danelle CODE status, she indicates today considering DNR/I, would do best to have /HCA involved in conversation in future - f/u on renal mass and POC - fdc planning and advanced directive review AD from 2008: no LST if days to weeks/dying, unconscious/unaware or burdens of treatments outweigh benefit; would not want artificial nutrition/hydration if above were true; would want hospice and to be home at EOL (8) ACP (advance care planning): Status: Acute Assessment and plan: reviewed CODE status, Viry is considering DNR/I today, however she still is unsure and thinks she wants them to try, she would not want them to try forever. She wants a chance to be with her . I suspect she does not have capacity to have a more meaningful conversation regarding CPR risks vs benefits and would do best to include HCAs in future conversations reviewed pain medication and recommendations to add fentanyl, she agrees to improved pain control at this time reviewed goal to speak to , attempted to call [facility] to connect them, however phone issues limited connection, CFL to give her number to Sridhar for him to call her spent 15m w/ACP encourage engagement in conversations w/Viry regarding CODE status w/appropriate professionals, I do feel Viry likely does not want CPR or intubation, however today she was too on the fence/uncertain to feel confident in code status change. Review of Systems Narrative: as per HPI limited d/t mental condition PFSH All Active Problems (Updated 08/11/25 @ 17:44 by Brittany Baptiste NP) ACP (advance care planning) (Acute) Palliative care encounter (Acute) Nausea & vomiting (Acute) Postoperative pain, acute, hip (Acute) Gastroparesis (Acute) Vomiting (Acute) Hip pain, right (Acute) Abnormal head CT (Acute) Closed comminuted intertrochanteric fracture of right femur (Acute) Abnormal CT scan, kidney (Acute) Fall (Acute) Intracranial bleed (Acute) Trochanteric fracture of right femur (Acute) Closed intertrochanteric fracture of right hip (Acute 08/04/25) Short-term memory loss (Chronic) Due to stroke in 2011. They feel it is stable. Carotid stenosis, right (Acute) Carotid occlusion, left (Chronic) Essential hypertension (Chronic 07/27/13) Hyperlipidemia (Chronic 12/19/11) Vitamin D deficiency (Chronic) Medical History Benign essential hypertension Diabetes mellitus due to underlying condition, controlled, with diabetic neuropathy, without long-term current use of insulin Hx of ischemic left MCA stroke (~2013) 09-10-2011: Left MCA infarct sec. to thrombus L ICA (R)hemiparesis,expressive aphasia/(R) visual field cut/impaired mobility : TIA Chronic anticoagulation (03/22/14) CVA + TIA ,goal inr 2-3; changed to plavix 05/2022 Surgical History Status post fracture of left tibia Family History Mother , 90's Heart disease Father , 90's No problems noted. Sister , 70's Heart disease Sister , 60's Cancer Social History Smoking/Tobacco Use Status: Former Tobacco Use tobacco type: cigarettes Quit Date: 08/26/11 Tobacco: How many years used: 40 Second Hand Exposure: Yes Smoking risk assessment performed?: Yes Alcohol Intake: current Alcohol Intake frequency: holidays/special occasions only Alcohol type: wine and hard liquor Drug use: Never Substance use type: does not use Caregiver/Support person: Yes Household members: spouse Housing: care home Number of Children: 0 Communication Needs: None Education Level: other Do you need help understanding health information?: Rarely Pets and animals: Yes Pets and animals: cat(s) Sexually active: No Do you think of yourself as: straight/heterosexual Current gender identity: female What is your relationship status?: How often do you talk on the phone with friends or family?: once per week How often do you get together with friends or relatives?: decline to answer How often do you attend advent or congregation services?: decline to answer Do you belong to any clubs or organized social groups?: no Panel score (0-1 are the most socially isolated patients): 1 Rayna/Catholic: No preference Seatbelt use: always Helmet use: No Drive intox or ride w/intox carry all driver: No Exam Narrative Exam Narrative: General: older adult frail/ill appearing female, sitting in recliner, engages readily HEENT: hearing grossly WNL, normocephalic, atraumatic Resp: even and unlabored, speaks full sentences w/o SOB; no audible wheeze or cough Psych: speech clear; mood congruent, affect normal to anxious, attitude normal to guarded, thought process impoverished, loose association; insight/judgment limited Results Last Vital Signs Temp 97.5 F L 08/11/25 11:54 Pulse 64 08/11/25 11:54 Resp 19 08/11/25 11:54 BP 108/53 L 08/11/25 11:58 Pulse Ox 94 08/11/25 11:54 Labs 08/11/25 16:10 08/11/25 07:12 Labs: Laboratory Results - last 24 hr 08/10/25 08/11/25 08/11/25 12:15 07:12 09:00 Hgb 7.0 L* 7.3 L Hct 21.7 L 22.1 L Sodium 140 Potassium 3.9 Chloride 100 Carbon Dioxide 30.8 Anion Gap 9.5 BUN 25 H Creatinine 0.84 Est GFR (CKD-EPI 2020) 65.17 Glucose 130 H Calcium 8.4 MRSA (TEM-PCR) Negative ABO/Rh O Positive Antibody Screen NEGATIVE Crossmatch See Detail Time Spent Time Spent with Patient Time Spent(min): 50
[2025-08-11 16:20] LABS: HCT 21.9 % (36.0-46.0); HGB 7.3 g/dL (11.2-15.7)
[2025-08-11] MEDS: fentaNYL 12 MCG PATCH TD (16:41)
[2025-08-11 20:09] VITALS: BP 111/52; PULSE 77; RESP 16; TEMP 37; O2SAT 97
[2025-08-11] MEDS: Simvastatin 40 MG TAB 80 MG PO (20:22)
[2025-08-11] MEDS: Enoxaparin 40 MG/0.4 ML SYR SC (20:22)
[2025-08-11 22:41] VITALS: BP 110/60; PULSE 69; RESP 18; TEMP 36.6; O2SAT 98
[2025-08-12] MEDS: oxyCODONE 5 MG TAB PO ×2 (01:41→09:21)
[2025-08-12] MEDS: Acetaminophen 325 MG TAB 650 MG PO ×2 (01:41→09:19)
[2025-08-12 06:30] VITALS: BP 110/60; PULSE 79; RESP 18; TEMP 36.5; O2SAT 93
[2025-08-12] MEDS: Clopidogrel 75 MG TAB PO (09:18)
[2025-08-12] MEDS: Lisinopril 20 MG TAB 40 MG PO (09:18)
[2025-08-12] MEDS: Metoprolol CR 100 MG TABCR PO (09:22)
--- NOTE | 2025-08-12 11:07 | PDOC.CMPRO ---
Date of service: 08/12/25 Time of Service: 11:07 Care Management Progress Note Discharge Potential Discharge Needs: Other (return to SNF) Anticipated Barriers to Discharge: Medical Status Patient/Family Education Needs: Review discharge instructions, discuss Ask Me Three Transportation: RCT Plan: Viry will be transferred back to [facility] when clinically stable. She will follow up with the facility providers and plan of care and transport via RCT/EMS. CM will follow. Social Determinants of Health Screening Will the Patient Participate in the Screening?: Unable to obtain Do you speak a language other than Bulgarian at home?: No Does the patient want assistance with any of the above?: No Comments: lives at [facility]
[2025-08-12 11:52] VITALS: BP 101/47; PULSE 69; RESP 16; TEMP 36.6; O2SAT 92
[2025-08-12 12:07] VITALS: BP 133/63; PULSE 82; RESP 16; TEMP 36.3; O2SAT 97
[2025-08-12] MEDS: DEXTROSE 5%-LACTATED RINGERS 1,000 ML 1000 ML IV (12:55)
--- NOTE | 2025-08-12 13:06 | NUR.NOTE ---
Nursing Note: This am pt has an order for a blood transfusion consent obtained from the pt VSS At 11:45 am nurse received pts blood rechecked VS VSS pt sitting up in the chair pt stated she was uncomfortable in the chair no specific complaints VSS pts transfusion started at 11:52 VSS pt continued to have no specific complaints other than hurting all over MD made aware Transfusion stopped at 12:20pm as per MD suggestion then IVF's ordered D5 LR 500cc bolus started at 1pm pt will be reassessed after bolus if transfusion can be continued At 1pm pt was uncomfortable in the chair crying had therapy assist pt back to bed pt now sleeping no further complaints offered. will continue to closely monitor
--- NOTE | 2025-08-12 13:23 | PTTR_ITS ---
PT Notes Visit Reasons: Vomiting Date: 08/12/2025 PRECAUTIONS: Fall, Standard, Activity as tolerated. SUBJECTIVE: pt in bed when approached for therapy this morning. pt very anxious but was agreeable to participating with therapy after a few minutes of coaxing from this therapist. pt in recliner when approached for a second session this afternoon, pt readily agreed to participate with therapy intervention. OBJECTIVE: Iv line for medicine and blood transfusion.? PAIN: Right LE 06/04 PAINAD VITALS: Monitored by nursing Therapeutic Activities 45386: Direct one-on-one instruction in dynamic activities to improve functional performance. ?? BED MOBILITY/TRANSFERS? Rolling L/R: mod A Supine-sit: ?mod A ? Sit-supine: mod A ? Sit-stand: ?mod A? Stand-sit: ??mod A ? Bed-Chair:? mod A? Chair-bed: mod A Provided skilled cues and instruction on performance and technique throughout. Gait Training 96887: Direct one-on-one instruction and skilled instruction in: Employing an assistive device Modified weight-bearing status Movement sequencing Turning and movement with proper form Provided verbal cues for equipment management and technique Provided instruction in gait pattern Patient education regarding pacing and breathing techniques to maximize activity tolerance? GAIT? Assistive Device: ?FWW ? Weight bearing: WBAT Assist: ?mod A? Distance:?? 10' (am) 10' (pm)? Deviation: ?Antalgic ? STAIRS:? na? ASSESSMENT:?Pt very limited engagement, very anxious, not able to concentrate on activity due to anxiety/ pain anticipation. PLAN: Continue with balance training, global strengthening and general conditioning for improved safety, mobility and activity tolerance until pt is ready for DC. TREATMENT CODE/TIME: [id number] 25mins (10:25-10:50am) [id number] 20mins (1:00-1:20p m)
[2025-08-12 13:26] LABS: HCT 21.3 % (36.0-46.0)
--- NOTE | 2025-08-12 14:12 | NUR.NOTE ---
Nursing Note: pt finished bolus of fluids MD did not reorder blood to be given MD said pts symptoms were not a reaction to the blood no orders for lab draw blood returned to the blood bank pt being discharged back the the rehab at 2:45pm
--- NOTE | 2025-08-12 14:18 | DSE_ITS ---
Date of service: 08/12/25 Time of Service: 08:00 DS: Diagnosis Discharge Diagnosis (1) Nausea & vomiting: Status: Resolved Asessment and Plan: Improved after she received pain meds and anti-emetics Of note, initial imaging report suggested gastroparesis, which is not diagnosed by imaging, and she did not have clinical signs consistent with that diagnosis. Staff radiologist report of the same image, which is the official read, does not suggest gastroparesis. PRN ondansetron (2) Postoperative pain, acute, hip: Status: Acute Asessment and Plan: Likely undermedicated for pain on day prior to arrival Restarted oxycodone PRN dosing, patient has no problems asking for it Physical therapy Renal function intact Postoperative anemia downtrend, Aug 11 morning hemoglobin 7.0, rechecked at 7.3. No transfusion Aug 11. Aug 12 morning hemoglobin 7.0. Transfusion attempted but patient too fatigued to tolerate. She received approximately 0.25 of a unit PRBC. VTE chemoprophylaxis with enoxaparin while hospitalized Resume ASA 81 BID upon discharge, continue until post-op appointment (3) Abnormal CT scan, kidney: Status: Acute Asessment and Plan: Incidental CT finding on previous admission: There is an exophytic lobulated and enhancing mass from the posterior medial aspect of the right kidney measuring 2 by 2.5 x 3.8 cm Not discussed with patient due to her confusion (4) Hx of ischemic left MCA stroke: Asessment and Plan: History of multiple CVAs Residual right hemiparesis Continue clopidogrel (5) Essential hypertension: Status: Chronic Asessment and Plan: Continue home regimen Discharge Plan Disposition Patient Disposition: [facility](SNF) Anticipated Discharge Date/Time: 08/11/25 09:00 Condition: Fair Discharge Details Reason For Visit: Vomiting Admit Date/Time: 08/10/25 12:53 Admit Provider: Zhang Alvarez Attending Provider: Zhang Alvarez Primary Care Provider: Marleen Boyle Hospital Course Hospital Course: Viry Ward is an 80 year old woman presenting August 10 with vomiting and pain, having been discharged August 09 for hospitalization for right hip surgery. Patient may have had delay with pain medication. Patient began to vomit after receiving tylenol. She was brought back to the ED. She has had very limited PO intake for the last week, exacerbated by absence from her who is at [facility]. Patient was found to be constipated, apparently having not stooled since August 05. She was also found to be anemic with hemoglobin 7.0, consistent with postop hip recovery. Transfusion was deferred, and hemoglobin birgit to 7.3 without intervention. Bowel regimen was increased and she had significant stooling overnight Aug 11. Her hemoglobin was back at 7 in the morning of Aug 12. Blood transfusion was started Aug 12 but patient felt too fatigued to continue. She was given D5LR 500ml and the transfusion was discontinued after approximately .25 unit PRBC. Patient's case and care discussed with Dr Ruth, who is accepting the patient to return to [facility]. She had intramedullary nailing of right closed comminuted intertrochanteric femur fracture with Dr Neff on August 05. She was out of bed briefly on post-op day 1. She continues to need occasional narcotic pain control and is on oxycodone 5 - 7.5 mg PO PRN for moderate to severe pain. VTE chemoprophylaxis with LMWH while hospitalized; ASA 81 BID until she sees Dr Neff in clinic. She should continue working with physical therapy. She has postoperative blood loss anemia that is exacerbated by poor PO intake. Her hemoglobin was 10.6 on August 04 arrival. On August 11 and her hemoglobin has been 7.0. There was no evidence of acute bleed on exam no imaging. 7.0 is borderline for a transfusion, and her anemia would be expected to improve with nutrition. Regardless we began PRBC 1u transfusion which she was not able to tolerate due to fatigue. Per discussion with Dr Ruth, her anemia will be monitored with primary intervention being nutrition and hydration. Her nausea and vomiting did not continue after her arrival August 10, from a combination of anti-nausea medication and pain medication. Her constipation was addressed with increased bowel regimen, which produced some stool. As she was uncomfortable in the abdomen, she was given golytely 1L. This was successful and her abdomen is soft and nontender with no complaints of pain. She should continue with a scheduled bowel regimen and PRN suppository per facility norms. She had a urinary catheter placed on August 10 in the ED. This has been removed and she is voiding without trouble. During her August 04- hospitalization, CT of the abdomen showed an abnormality in her right kidney. This has not been discussed with the patient; palliative care is aware and will help guide timing for a discussion. Patient should continue her home regimen for hypertension and stroke prevention. Home Meds and New Rx's Prescriptions: Continued clopidogrel 75 mg tablet 75 mg PO DAILY Qty: 90 3RF cholecalciferol (vitamin D3) [Vitamin D3] 2,000 UNIT capsule 2,000 unit PO DAILY Qty: 90 lisinopril [Zestril] 40 mg tablet 40 mg PO DAILY Qty: 90 4RF hydrochlorothiazide 25 mg tablet 25 mg PO DAILY Qty: 90 1RF metoprolol succinate 100 mg tablet extended release 24 hr 100 mg PO DAILY Qty: 90 3RF simvastatin 80 mg tablet 80 mg PO QPM Rx Instructions: take one tablet daily acetaminophen 325 mg Tablet 650 mg PO Q6H PRN PRNQty: 0 0RF oxycodone 5 mg Tablet 5 - 7.5 mg PO Q4H PRN PRNQty: 0 0RF aspirin 81 mg tablet,delayed release (DR/EC) 81 mg PO BID Qty: 60 0RF Discharge Instructions Instructions: Hip Pain ED Stand Alone Forms: Portal Information, Nursing Discharge Form Referrals: Marleen Boyle NP [Primary Care Provider, Medicine] Referral Note: Your PCP will reach out, if you do not hear from them please call Activity:: Activity as Tolerated Equipment/Supplies:: No Equipment Needed Diet:: As Tolerated DS: Summary Time Spent with Patient providing and/or coordinating discharge services: Greater than 30 minutes Status at Discharge Functional status at discharge: uses cane/walker Overall status at discharge: patient is progressing back to baseline Mental Status: mental status grossly normal Speech and Movement: speech and movement normal Mood: congruent mood Affect: normal affect Quality:SDOH Health Related Social Needs: Health related social needs risk of homeless transpo i nsecurity material hardship daily activities Health related social needs details Pt will need rona tance with ADLs due to recent fracture from a fall prompting this admission Exam Narrative Exam Narrative: General: This is a fatigued, confused elderly woman HEENT: Normocephalic, atraumatic CV: RRR Resp: CTAB Abd: soft, NTND. Right flank ecchymosis faded since prior exam. MSK: voluntary motion x4. Right hip incision sites c/d/i, mild ecchymoses Neuro: awake, alert, chronic right hemiparesis Psych Mental Status: mental status grossly normal Speech and Movement: speech and movement normal Mood: congruent mood Affect: normal affect DS: Data Vitals/I&O Vitals and I&O: Vital Signs Temperature 36.3 C L 08/12/25 12:07 Temperature Source Temporal Artery Scan 08/12/25 06:30 Pulse 82 08/12/25 12:07 Respiratory Rate 16 08/12/25 12:07 Respiratory Effort Normal 08/10/25 13:29 Respiratory Depth Normal 08/10/25 13:29 Respiratory Pattern Normal 08/10/25 13:29 Blood Pressure 133/63 08/12/25 12:07 Blood Pressure Mean 76 08/12/25 06:30 Blood Pressure Position Supine 08/10/25 04:42 Pulse Oximetry 97 08/12/25 12:07 Oxygen Delivery Method Room Air 08/12/25 12:07 Oxygen Flow Rate 0 08/12/25 12:07 Pain Level 8 08/12/25 09:45 Comment Downtime Entry 08/12/25 06:30 Intake & Output 08/11/25 08/12/25 08/12/25 23:59 11:59 23:59 Output Total 400 / 400 Balance -400 / -400 Output: Urine 400 / 400 Other: Urine Color Yellow Urine Appearance Clear Stool Size Large Stool Characteristics Liquid Brown Data Completed and Pending Pending Labs at Discharge: 08/10/25 08/10/25 08/10/25 06:32 07:02 10:23 WBC 11.63 H RBC 2.82 L Hgb 8.7 L 7.5 L Hct 25.8 L 21.9 L MCV 92 MCH 30.9 MCHC 33.7 RDW 12.6 Plt Count 221 MPV 10.1 Immature Gran % 0.5 Neutrophils % 87.1 Lymphocytes % 6.6 Monocytes % 5.5 Eosinophils % 0.1 Basophils % 0.2 Nucleated RBC % 0.0 Absolute Neutrophils 10.13 H Absolute Lymphocytes 0.77 L Absolute Monocytes 0.64 Absolute Eosinophils 0.01 Absolute Basophils 0.02 Sodium 136 137 Potassium 3.7 3.7 Chloride 95 L 98 Carbon Dioxide 31.1 H 30.7 Anion Gap 9.7 8.8 BUN 26 H 25 H Creatinine 0.80 0.80 Est GFR (CKD-EPI 2020) 68.94 68.94 Glucose 200 H 176 H Calcium 8.9 8.2 L Total Bilirubin 1.6 H AST 26 ALT 11 Alkaline Phosphatase 60 Total Protein 6.9 Albumin 4.0 Lipase 25 Urine Color Yellow Urine Clarity Clear Urine pH 6.0 Ur Specific [place] 1.010 Urine Protein Negative Urine Ketones 15 H Urine Blood Negative Urine Nitrite Negative Urine Bilirubin Negative Urine Urobilinogen 1.0 H Ur Leukocyte Esterase Negative Urine Glucose 100 H MRSA (TEM-PCR) ABO/Rh Antibody Screen Crossmatch 08/10/25 08/11/25 08/11/25 12:15 07:12 09:00 WBC RBC Hgb 7.0 L* 7.3 L Hct 21.7 L 22.1 L MCV MCH MCHC RDW Plt Count MPV Immature Gran % Neutrophils % Lymphocytes % Monocytes % Eosinophils % Basophils % Nucleated RBC % Absolute Neutrophils Absolute Lymphocytes Absolute Monocytes Absolute Eosinophils Absolute Basophils Sodium 140 Potassium 3.9 Chloride 100 Carbon Dioxide 30.8 Anion Gap 9.5 BUN 25 H Creatinine 0.84 Est GFR (CKD-EPI 2020) 65.17 Glucose 130 H Calcium 8.4 Total Bilirubin AST ALT Alkaline Phosphatase Total Protein Albumin Lipase Urine Color Urine Clarity Urine pH Ur Specific [place] Urine Protein Urine Ketones Urine Blood Urine Nitrite Urine Bilirubin Urine Urobilinogen Ur Leukocyte Esterase Urine Glucose MRSA (TEM-PCR) Negative ABO/Rh O Positive Antibody Screen NEGATIVE Crossmatch See Detail 08/11/25 08/12/25 08/12/25 16:10 05:31 12:00 WBC RBC Hgb 7.3 L 7.0 L* Pending Hct 21.9 L 21.3 L Pending MCV MCH MCHC RDW Plt Count MPV Immature Gran % Neutrophils % Lymphocytes % Monocytes % Eosinophils % Basophils % Nucleated RBC % Absolute Neutrophils Absolute Lymphocytes Absolute Monocytes Absolute Eosinophils Absolute Basophils Sodium Potassium Chloride Carbon Dioxide Anion Gap BUN Creatinine Est GFR (CKD-EPI 2020) Glucose Calcium Total Bilirubin AST ALT Alkaline Phosphatase Total Protein Albumin Lipase Urine Color Urine Clarity Urine pH Ur Specific [place] Urine Protein Urine Ketones Urine Blood Urine Nitrite Urine Bilirubin Urine Urobilinogen Ur Leukocyte Esterase Urine Glucose MRSA (TEM-PCR) ABO/Rh Antibody Screen Crossmatch PFSH All Active Problems (Updated 08/12/25 @ 00:04 by MICHELLE HI) ACP (advance care planning) (Acute) Palliative care encounter (Acute) Postoperative pain, acute, hip (Acute) Gastroparesis (Acute) Vomiting (Acute) Hip pain, right (Acute) Abnormal head CT (Acute) Closed comminuted intertrochanteric fracture of right femur (Acute) Abnormal CT scan, kidney (Acute) Fall (Acute) Intracranial bleed (Acute) Trochanteric fracture of right femur (Acute) Closed intertrochanteric fracture of right hip (Acute 08/04/25) Short-term memory loss (Chronic) Due to stroke in 2011. They feel it is stable. Carotid stenosis, right (Acute) Carotid occlusion, left (Chronic) Essential hypertension (Chronic 07/27/13) Hyperlipidemia (Chronic 12/19/11) Vitamin D deficiency (Chronic) Medical History Benign essential hypertension Diabetes mellitus due to underlying condition, controlled, with diabetic neuropathy, without long-term current use of insulin Hx of ischemic left MCA stroke (~2013) 09-10-2011: Left MCA infarct sec. to thrombus L ICA (R)hemiparesis,expressive aphasia/(R) visual field cut/impaired mobility : TIA Chronic anticoagulation (03/22/14) CVA + TIA ,goal inr 2-3; changed to plavix 05/2022 Surgical History Status post fracture of left tibia Family History Mother , 90's Heart disease Father , 90's No problems noted. Sister , 70's Heart disease Sister , 60's Cancer Social History Smoking/Tobacco Use Status: Former Tobacco Use tobacco type: cigarettes Quit Date: 08/26/11 Tobacco: How many years used: 40 Second Hand Exposure: Yes Smoking risk assessment performed?: Yes Alcohol Intake: current Alcohol Intake frequency: holidays/special occasions only Alcohol type: wine and hard liquor Drug use: Never Substance use type: does not use Caregiver/Support person: Yes Household members: spouse Housing: correction Number of Children: 0 Communication Needs: None Education Level: other Do you need help understanding health information?: Rarely Pets and animals: Yes Pets and animals: cat(s) Sexually active: No Do you think of yourself as: straight/heterosexual Current gender identity: female What is your relationship status?: How often do you talk on the phone with friends or family?: once per week How often do you get together with friends or relatives?: decline to answer How often do you attend anabaptist or oriental orthodox services?: decline to answer Do you belong to any clubs or organized social groups?: no Panel score (0-1 are the most socially isolated patients): 1 Rayna/Rastafarian: No preference Seatbelt use: always Helmet use: No Drive intox or ride w/intox 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
--- NOTE | 2025-08-12 15:41 | CMDISCH_ITS ---
Date of service: 08/12/25 Time of Service: 15:41 LACE Index Scoring Tool Questions: Length of Stay (in days): 2 Was the patient admitted via the E.D.?: Yes Comorbidities: Diabetes w/o Complication and Dementia E.D. Visits: 2 Answers: Total Score: 12 Risk of Readmission: High Risk Care Management Discharge Plan Reason for Hospitalization: vomiting Discharge Plan: Viry will be transferred back to [facility] via EMS. She will follow up with the facility providers and plan of care and continue with her rehab. Patient/Family Education Needs: review discharge instructions, limitations, follow up plan and discuss Ask Me Three Services Needed at Discharge: Home Health Care Services SDOH Health Related Social Needs: Health related social needs risk of homeless transpo i nsecurity material hardship daily activities Health related social needs details Pt will need rona mejía with ADLs due to recent fracture from a fall prompting this admission
--- NOTE | 2025-08-12 18:31 | NUR.NOTE ---
Nursing Note: At 6:30pm report given to Dimple DELUCA [facility]
[2025-08-13 12:56] LABS: HGB 7.0 g/dL (11.2-15.7)
== END 2025-08-12 16:34 | disposition skilled nursing facility (03) ==
LOC: ER 11:11 → MS 13:53
PROVIDERS: Student in an Organized Health Care Education/Training Program; Admitting Provider Family Medicine; Emergency Provider Emergency Medicine; PCP Nurse Practitioner Family; Responsible Provider Family Medicine; Visit Provider Family Medicine
DX: G89.18 Other acute postprocedural pain (principal); M25.551 Pain in right hip; S72.141D Displaced intertrochanteric fracture of right femur, subsequent encounter for closed fracture with routine healing; R11.2 Nausea with vomiting, unspecified; Z98.890 Other specified postprocedural states; I10 Essential (primary) hypertension; R41.3 Other amnesia; Z59.811 Housing instability, housed, with risk of homelessness; Z59.87 Material hardship due to limited financial resources, not elsewhere classified; Z73.89 Other problems related to life management difficulty; R93.421 Abnormal radiologic findings on diagnostic imaging of right kidney; I69.351 Hemiplegia and hemiparesis following cerebral infarction affecting right dominant side; F03.90 Unspecified dementia, unspecified severity, without behavioral disturbance, psychotic disturbance, mood disturbance, and anxiety; I69.311 Memory deficit following cerebral infarction; E55.9 Vitamin D deficiency, unspecified; E78.5 Hyperlipidemia, unspecified; I65.23 Occlusion and stenosis of bilateral carotid arteries; Z79.899 Other long term (current) drug therapy; D64.9 Anemia, unspecified; W19.XXXD Unspecified fall, subsequent encounter
CPT/HCPCS: 00123; 36415; 51702; 73552; 76942; 80048; 80053; 83690; 86850; 86900; 86901; 86920; 87641; 96361; 96374; 96375; 97162; 97530; 99285; J1650; 36410; 72170; 74018; 74176; 81003; 85014; 85018; 85025; 99222; 99232; 99239; G0378; J2270; J2405; P9016

== ENCOUNTER 2025-08-20 00:19 | Emergency (ER) | payer MEDICARE, SELFPAY ==
[2025-08-20] VITALS (11 sets, daily range): BP systolic 109–138; BP diastolic 34–60; PULSE 74–79; RESP 16–26; TEMP 36.9–37.9; O2SAT 88–100
--- NOTE | 2025-08-20 01:06 | W.ED.GENAD ---
Discharge Plan Disposition Patient Disposition: [facility](SNF) Condition: Good Discharge Details Clinical Impression: Hematuria, Acute hypokalemia Primary Care Provider: Marleen Boyle ED Provider: Fredi Hoffman Home Meds and New Rx's Prescriptions: No Action clopidogrel 75 mg tablet 75 mg PO DAILY Qty: 90 3RF cholecalciferol (vitamin D3) [Vitamin D3] 2,000 UNIT capsule 2,000 unit PO DAILY Qty: 90 lisinopril [Zestril] 40 mg tablet 40 mg PO DAILY Qty: 90 4RF hydrochlorothiazide 25 mg tablet 25 mg PO DAILY Qty: 90 1RF metoprolol succinate 100 mg tablet extended release 24 hr 100 mg PO DAILY Qty: 90 3RF simvastatin 80 mg tablet 80 mg PO QPM Rx Instructions: take one tablet daily acetaminophen 325 mg Tablet 650 mg PO Q6H PRN PRNQty: 0 0RF oxycodone 5 mg Tablet 5 - 7.5 mg PO Q4H PRN PRNQty: 0 0RF aspirin 81 mg tablet,delayed release (DR/EC) 81 mg PO BID Qty: 60 0RF acetaminophen 500 mg capsule 1,000 mg PO Q8H ondansetron 4 mg tablet,disintegrating 4 mg PO Q6H PRN Discharge Instructions Instructions: Hypokalemia, Blood in Urine (Hematuria), Adult ED Additional Instructions: At this time your workup is returned, CT scan shows no acute process or change. Your labs show slightly low potassium and slightly low sodium. These have been corrected with IV potassium and normal saline here. Please follow-up closely with urology for recheck of your hematuria. If you notice any worsening of your symptoms, or any new symptoms such as vomiting, diarrhea, fever, chills, shortness of breath, chest pain, numbness, weakness, or fainting , please return immediately to the emergency department for reevaluation. Please follow up with your primary care provider as soon as possible for reassessment and reevaluation. As always, it was a pleasure participating in your medical care today. Stand Alone Forms: Portal Information Referrals: Marleen Boyle NP [Primary Care Provider, Medicine] [facility] General Date/Time Provider Initiated Documentation: 08/20/25 00:24. HPI Narrative: This is an 80-year-old female with a past medical history of prior strokes, baseline cognitive impairment, hypertension, high cholesterol, with recent mechanical fall and subsequent comminuted intertrochanteric fracture of the right femur, who underwent right hip intramedullary nail fixation on 08/05/[address] Neff, with good toleration of the surgery, and subsequent transfer to [facility] and rehab, subsequent return to the ED for vomiting on 08/10/2025, with a suppose diagnosis of gastroparesis which but in the end had no radiological evidence of obstruction or functional gastroparesis, who was subsequently discharged on 10/13/2024 who returns again tonight for blood in her chronic indwelling Elias, as well as occasional nausea and vomiting. Report was from EMS. We did not receive any contact from health [facility] rehab. Patient is on aspirin and Plavix. Patient has no complaints whatsoever. Related Data Home Medications ?Medication ?Instructions ?Recorded ?Confirmed cholecalciferol (vitamin D3) 50 2,000 unit PO DAILY #90 tab-caps 09/04/16 08/20/25 mcg (2,000 unit) capsule (Vitamin D3) clopidogrel 75 mg tablet 75 mg PO DAILY #90 tabs 12/29/24 08/20/25 hydrochlorothiazide 25 mg tablet 25 mg PO DAILY #90 tabs 05/04/25 08/20/25 lisinopril 40 mg tablet (Zestril) 40 mg PO DAILY #90 tabs 05/04/25 08/20/25 metoprolol succinate 100 mg 100 mg PO DAILY #90 tabs 06/07/25 08/20/25 tablet,extended release 24 hr simvastatin 80 mg tablet 80 mg PO QPM 08/04/25 08/20/25 acetaminophen 325 mg tablet 650 mg (2 x 325 mg) PO Q6H PRN PRN 08/08/25 08/20/25 #0 tabs oxycodone 5 mg tablet 5 - 7.5 mg (1 - 1.5 x 5 mg) PO Q4H 08/08/25 08/20/25 PRN PRN #0 tabs aspirin 81 mg tablet,delayed 81 mg PO BID #60 tabs 08/09/25 08/20/25 release acetaminophen 500 mg capsule 1,000 mg PO Q8H 08/20/25 08/20/25 ondansetron 4 mg disintegrating 4 mg PO Q6H PRN 08/20/25 08/20/25 tablet Previous Rx's ?Medication ?Instructions ?Recorded clopidogrel 75 mg tablet 75 mg PO DAILY #90 tabs 12/29/24 hydrochlorothiazide 25 mg tablet 25 mg PO DAILY #90 tabs 05/04/25 lisinopril 40 mg tablet (Zestril) 40 mg PO DAILY #90 tabs 05/04/25 metoprolol succinate 100 mg 100 mg PO DAILY #90 tabs 06/07/25 tablet,extended release 24 hr acetaminophen 325 mg tablet 650 mg (2 x 325 mg) PO Q6H PRN PRN 08/08/25 #0 tabs oxycodone 5 mg tablet 5 - 7.5 mg (1 - 1.5 x 5 mg) PO Q4H 08/08/25 PRN PRN #0 tabs aspirin 81 mg tablet,delayed 81 mg PO BID #60 tabs 08/09/25 release Allergies Allergy/AdvReac Type Severity Reaction Status Date / Time spider venom Allergy Intermediate Swelling Verified 08/20/25 01:05 General Stated Complaint: Urinary RAHEL: 3 Exam Narrative Exam Narrative: 1.Const: Well-nourished, Well-developed, appearing stated age 2.Eyes: PERRL, no conjunctival injection, and symmetrical lids. 3.ENT: Atraumatic external nose and ears. Moist MM. Neck: Symmetric, trachea midline, No thyromegaly. 4.CVS: +S1/S2, Peripheral pulses 2+ and equal in all extremities. Brisk capillary refill in all extremities. 5.RESP: Unlabored respiratory effort. Clear to auscultation bilaterally. No wheezes rales or rhonchi 6.GI: Soft, Nontender/Nondistended, No hepatosplenomegaly. No guarding or rebound. No pain. Indwelling Elias catheter is in place with no blood in her diaper, but there is a few small clots noted in her Elias bag and Elias catheter. 7.MSK: Normocephalic/Atraumatic, Extremities w/o deformity or ttp No cyanosis or clubbing, Normal movement of all extremities 8.Skin: Warm, Dry. No rashes or lesions. 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 Sensation grossly intact, no focal neurologic deficits. 10.Psych: (AAO) x3. Appropriate mood and affect Course Vital Signs Vital signs: Vital Signs Temperature 36.9 C 08/20/25 00:21 Pulse 79 08/20/25 00:21 Respiratory Rate 16 08/20/25 00:21 Blood Pressure 115/51 L 08/20/25 00:21 Pulse Oximetry 95 08/20/25 00:21 Temperature 36.9 C 08/20/25 00:21 Pulse 79 08/20/25 00:21 Respiratory Rate 16 08/20/25 00:21 Blood Pressure 115/51 L 08/20/25 00:21 Blood Pressure Position Supine 08/20/25 00:21 Pulse Oximetry 95 08/20/25 00:21 Oxygen Delivery Method Room Air 08/20/25 00:21 Oxygen Flow Rate 0 08/20/25 00:21 Pain Level 5 08/20/25 00:21 Medical Decision Making This is an 80-year-old female with a past medical history of prior strokes, baseline cognitive impairment, hypertension, high cholesterol, with recent mechanical fall and subsequent comminuted intertrochanteric fracture of the right femur, who underwent right hip intramedullary nail fixation on 08/05/[address] Neff, with good toleration of the surgery, and subsequent transfer to [facility] and rehab, subsequent return to the ED for vomiting on 08/10/2025, with a suppose diagnosis of gastroparesis which but in the end had no radiological evidence of obstruction or functional gastroparesis, who was subsequently discharged on 10/13/2024 who returns again tonight for blood in her chronic indwelling Elias, as well as occasional nausea and vomiting. Report was from EMS. We did not receive any contact from health and rehab. Patient is on aspirin and Plavix. Patient has no complaints whatsoever. Exam demonstrates well-appearing female, no tachycardia, fever or other abnormality. No vomiting here, no abdominal pain or tenderness. Patient is not a good historian, but exam does not reveal any significant abnormalities aside for a few blood clots in the Elias catheter and bag. We may get further imaging to evaluate for mass in the bladder, she does have a history of a mass on the right kidney. Will see if this is changed. Will check her hemoglobin status. Will monitor closely and reassess. 3:01 AM Laboratory workup shows no white count, no fever to suggest infection. Hemoglobin has improved to 8.7. Electrolytes demonstrate a slightly low sodium at 133, slightly low potassium at 3.1, slightly low chloride at 89, bicarb elevated. BUN minimally elevated at 24. Lipase normal, urinalysis shows no nitrites. Only small leuk esterase. We will wait on urine culture as she shows no evidence to suggest infection systemically. With the slightly low potassium we will give 20 mEq of IV potassium. Patient has not vomited here. Patient has received a liter of normal saline which will normalize the sodium and chloride. Patient otherwise stable with no evidence of life-threatening etiology. The blood in her urine is still notable, but she shows no evidence of anemia. Recommend nonemergent outpatient follow-up with urology. Patient otherwise stable for discharge. I have extensively reviewed the treatment plan and discharge instructions with the patient. I have addressed all patient concerns at this time. The patient was made aware of what symptoms to monitor for that would warrant a return to the emergency department. Discussed the plan with the patient, they demonstrate verbal understanding and agreement with our assessment and plan at this time. The documentation in this chart was dictated using [employer] dictation software. Please excuse any dictation errors. FINDINGS: Lungs: Linear bibasilar opacities most consistent with subsegmental atelectasis. Liver: The liver is unremarkable. Gallbladder and biliary ducts: Multiple gallstones are present. No pericholecystic inflammatory changes to suggest cholecystitis. Pancreas: The pancreas is unremarkable. Spleen: No splenomegaly. No lesions. Adrenal glands: The adrenal glands are unremarkable. Kidneys and ureters: Stable renal cysts. Stomach and bowel: Colonic diverticulosis without evidence of diverticulitis. Appendix: Appendix is not seen but there is no pericecal inflammatory change. Intraperitoneal space: Unremarkable. No free air. No significant fluid collection. Vasculature: There is severe diffuse atherosclerotic disease of the abdominal aorta. Moderate narrowing of the ostium of the celiac and superior mesenteric artery secondary to atherosclerotic disea Lymph nodes: Unremarkable. No enlarged lymph nodes. Urinary bladder: Elias catheter within the urinary bladder. Reproductive: Degenerating fibroid within the uterus. Bones/joints: Moderate multilevel degenerative changes with disc space narrowing and osteophyte formation. Moderate diffuse facet arthropathy. No fracture subluxation. Moderate multilevel degenerative changes as described. No fracture subluxation. The lumbar spine demonstrates mild degenerative changes at multiple levels. Postsurgical changes in the left femur with expected changes including subcutaneous edema and soft tissue air. Soft tissues: Small fat containing umbilical hernia. IMPRESSION: 1. Chronic noncritical findings as described above. 2. Postsurgical changes in the left femur with expected changes including subcutaneous edema and soft tissue air. Thank you for allowing us to participate in the care of your patient. Dictated and Authenticated by: Emani Horner MD 08/20/2025 1:49 AM Eastern Time ([place] Quality:SDOH Health Related Social Needs: Health related social needs risk of homeless transpo insecurity material hardship daily activities Health related social needs details Pt will need assistance with ADLs due to recent fracture from a fall prompting this admission PFSH All Active Problems (Updated 08/20/25 @ 03:04 by Fredi Hoffman DO) Acute hypokalemia (Acute) Hematuria (Acute) Postoperative pain, acute, hip (Acute) Vomiting (Acute) Hip pain, right (Acute) Abnormal head CT (Acute) Closed comminuted intertrochanteric fracture of right femur (Acute) Abnormal CT scan, kidney (Acute) Intracranial bleed (Acute) Trochanteric fracture of right femur (Acute) Closed intertrochanteric fracture of right hip (Acute 08/04/25) Short-term memory loss (Chronic) Due to stroke in 2011. They feel it is stable. Carotid stenosis, right (Acute) Carotid occlusion, left (Chronic) Essential hypertension (Chronic 07/27/13) Hyperlipidemia (Chronic 12/19/11) Vitamin D deficiency (Chronic) Medical History Benign essential hypertension Diabetes mellitus due to underlying condition, controlled, with diabetic neuropathy, without long-term current use of insulin Hx of ischemic left MCA stroke (~2013) 09-10-2011: Left MCA infarct sec. to thrombus L ICA (R)hemiparesis,expressive aphasia/(R) visual field cut/impaired mobility : TIA Chronic anticoagulation (03/22/14) CVA + TIA ,goal inr 2-3; changed to plavix 05/2022 Surgical History Status post fracture of left tibia Family History Mother , 's Heart disease Father , 90's No problems noted. Sister , 70's Heart disease Sister , 60's Cancer Social History Smoking/Tobacco Use Status: Former Tobacco Use tobacco type: cigarettes Quit Date: 08/26/11 Tobacco: How many years used: 40 Second Hand Exposure: Yes Smoking risk assessment performed?: Yes Alcohol Intake: current Alcohol Intake frequency: holidays/special occasions only Alcohol type: wine and hard liquor Drug use: Never Substance use type: does not use Caregiver/Support person: Yes Household members: spouse Housing: skilled nursing Number of Children: 0 Communication Needs: None Education Level: other Do you need help understanding health information?: Rarely Pets and animals: Yes Pets and animals: cat(s) Sexually active: No Do you think of yourself as: straight/heterosexual Current gender identity: female What is your relationship status?: How often do you talk on the phone with friends or family?: once per week How often do you get together with friends or relatives?: decline to answer How often do you attend yarsanism or pentecostalism services?: decline to answer Do you belong to any clubs or organized social groups?: no Panel score (0-1 are the most socially isolated patients): 1 Rayna/Nondenominational: No preference Seatbelt use: always Helmet use: No 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
[2025-08-20 01:11] LABS: Abs Immature Grans 0.06 10^3/uL (0.0-0.06); HCT 26.0 % (36.0-46.0); HGB 8.7 g/dL (11.2-15.7); Immature Grans % 0.6 %; MCH 30.9 pg (27.0-33.0); MCHC 33.5 % (32.0-36.0); MCV 92 fL (80-95); MPV 9.3 fL (8.0-11.0); Platelet Count 337 10^3/uL (130-400); RBC 2.82 10^6/uL (3.93-5.22); RDW 13.2 % (11.7-14.6); RDW-SD 43.3 fL; WBC 10.41 10^3/uL (4.4-10.8)
[2025-08-20 01:25] LABS: Glucose Negative (Negative)
--- NOTE | 2025-08-20 01:27 | DI.CT_ITS ---
Exam(s) CT ABDOMEN PELVIS WO EXAM: CT ABDOMEN PELVIS WO CLINICAL HISTORY: vomiting. TECHNIQUE: Imaging Protocol: Axial computed tomography images with coronal and sagittal reformatted images were created and reviewed CONTRAST MATERIAL: Intravenous: none Oral: None COMPARISON: CT CT CHEST/ABD/PEL W from 08/04/[address] ABDOMEN PELVIS WO from 08/10/2025 FINDINGS: VISUALIZED LUNG BASES: There increased markings both lung bases posterior basal segments both lower lobes. There are no pleural effusions.. ABDOMEN: There is no ascites. Stomach is moderately distended. There is, however, no evidence of obvious small bowel obstruction. LIVER: There are no obvious focal hepatic lesions evident of this noninfused study. GALLBLADDER/BILIARY: There is the prominent gallstones in the lower body of the gallbladder measuring 1.8 by 1.3 cm. Gallbladder size is upper normal. There is no pericholecystic fluid. CBD is not dilated. PANCREAS: No evidence of pancreatic mass nor dilatation of the pancreatic duct. SPLEEN: Spleen is not enlarged. No obvious intrasplenic lesions. ADRENALS: There are no significant adrenal masses. KIDNEYS:There is a benign cyst in the anterior cortex left kidney noted which measures 1.5 cm. There is an exophytic lesion off the medial cortex of the right kidney noted which measures 2.2 by 2.2 cm, unchanged from 08/10/2025. And with Hounsfield unit measurements higher than typical cyst. This exhibited internal enhancement on contrast infused CT scan of 08/04/2025, consistent with probable renal cell carcinoma. It is unchanged in size. There are no renal calculi nor hydronephrosis nor hydroureter. ABDOMINAL AORTA: Abdominal aorta is heavily calcified but not enlarged. Iliac arteries are also calcified but not enlarged. LYMPH NODES: There is no retroperitoneal nor paraaortic adenopathy. ABDOMINAL WALL: No evidence of significant anterior abdominal wall nor inguinal hernia. GI: There is no evidence of bowel obstruction, free air, nor abscess. PELVIS: LYMPH NODES: There is no intrapelvic nor inguinal adenopathy. GI: No evidence of appendicitis.No evidence of sigmoid diverticulitis. URINARY BLADDER: There is a Elias catheter in the urinary bladder. The bladder is not distended. It contains intraluminal air most probably related to the Elias insertion. REPRODUCTIVE: Uterus is again noted to contain a calcified right side uterine fibroid. See no significant adnexal masses and no free fluid in the pelvis. OSSEOUS: Right hip hardware evident across the intertrochanteric fracture site, supported by a short intramedullary dasha. No further displacement of the fracture fragments and the lesser trochanters again noted to be avulsed. IMPRESSION: 1. There is again noted the previously described solid lobulated exophytic lesion off the medial cortex of the right kidney, unchanged from 08/10/2025 and is most probably consistent with malignancy. 2. Postsurgical findings in the right hip from recent repair of 08/04/2025 RADIATION DOSE DELIVERED: 727.22mGy.cm Total DLP DATA REPOSITORY: All CT scans at this facility are submitted to the National Radiology Data Registry (NRDR) Dose Index Registry (DIR) with the [employer] (ACR). RADIATION OPTIMIZATION: All CT scans at this facility use at least one of these dose optimization techniques: automated exposure control; mA and/or kV adjustment per patient size (includes targeted exams where dose is matched to clinical indication); or iterative reconstruction.
[2025-08-20 01:31] LABS: Lipase 38 U/L (<53)
[2025-08-20 01:32] LABS: C & S Indicated? Yes; RBC >50 HPF (0-2)
[2025-08-20] MEDS: Normal Saline 500 ML IV ×2 (01:32→03:16)
[2025-08-20 01:33] LABS: ALT 14 U/L (10-49); AST 33 U/L (<34); Albumin 3.8 g/dL (3.2-5.0); Alkaline Phosphatase 109 U/L (46-116); Anion Gap 7.5 mmol/L (3-11); BUN 24 mg/dL (9-23); Bilirubin, Total 0.8 mg/dL (0.2-1.2); CO2 36.5 mmol/L (20.0-31.0); Calcium 8.9 mg/dL (8.3-10.6); Chloride 89 mmol/L (98-107); Glucose 158 mg/dL (74-106); Potassium 3.1 mmol/L (3.5-5.1); Sodium 133 mmol/L (136-145); Total Protein 6.7 g/dL (5.7-8.2)
[2025-08-20] MEDS: Ondansetron 4 MG/2 ML VIAL IVP (01:35)
--- NOTE | 2025-08-20 01:50 | DI.VRAD_ITS ---
PROCEDURE INFORMATION: Exam: CT Abdomen And Pelvis Without Contrast Exam date and time: 08/20/2025 1:11 AM Age: 80 years old Clinical indication: Vomiting; Prior surgery; Surgery date: <1 month; Surgery type: Femur dasha TECHNIQUE: Imaging protocol: Computed tomography of the abdomen and pelvis without contrast. Radiation optimization: All CT scans at this facility use at least one of these dose optimization techniques: automated exposure control; mA and/or kV adjustment per patient size (includes targeted exams where dose is matched to clinical indication); or iterative reconstruction. COMPARISON: CT ABDOMEN PELVIS WO 08/10/2025 5:42 AM FINDINGS: Lungs: Linear bibasilar opacities most consistent with subsegmental atelectasis. Liver: The liver is unremarkable. Gallbladder and biliary ducts: Multiple gallstones are present. No pericholecystic inflammatory changes to suggest cholecystitis. Pancreas: The pancreas is unremarkable. Spleen: No splenomegaly. No lesions. Adrenal glands: The adrenal glands are unremarkable. Kidneys and ureters: Stable renal cysts. Stomach and bowel: Colonic diverticulosis without evidence of diverticulitis. Appendix: Appendix is not seen but there is no pericecal inflammatory change. Intraperitoneal space: Unremarkable. No free air. No significant fluid collection. Vasculature: There is severe diffuse atherosclerotic disease of the abdominal aorta. Moderate narrowing of the ostium of the celiac and superior mesenteric artery secondary to atherosclerotic disease Lymph nodes: Unremarkable. No enlarged lymph nodes. Urinary bladder: Elias catheter within the urinary bladder. Reproductive: Degenerating fibroid within the uterus. Bones/joints: Moderate multilevel degenerative changes with disc space narrowing and osteophyte formation. Moderate diffuse facet arthropathy. No fracture subluxation. Moderate multilevel degenerative changes as described. No fracture subluxation. The lumbar spine demonstrates mild degenerative changes at multiple levels. Postsurgical changes in the left femur with expected changes including subcutaneous edema and soft tissue air. Soft tissues: Small fat containing umbilical hernia. IMPRESSION: 1. Chronic noncritical findings as described above. 2. Postsurgical changes in the left femur with expected changes including subcutaneous edema and soft tissue air. Dictated and Authenticated by: Emani Horner MD. Orderin Yasmin Rai MD
[2025-08-20] MEDS: POTASSIUM CHLORIDE 20 MEQ/100 ML BAG 50 MEQ IV INF (03:15)
--- NOTE | 2025-08-20 06:45 | NUR.NOTE ---
Report called to [facility] for pt return. Pt transferred [facility] to [facility] ([facility]). Report given to EMS prior to transfer.
--- NOTE | 2025-08-22 07:29 | W.ED.FU ---
Date of service: 08/22/25 Time of Service: 07:29 Follow Up Plan: I called [facility] for [facility] to provide cephalexin prescription 250 mg 4 times daily. I spoke with nurse Strickland
== END 2025-08-20 06:09 | disposition skilled nursing facility (03) ==
PROVIDERS: Emergency Provider Student in an Organized Health Care Education/Training Program; PCP Nurse Practitioner Family
DX: R31.9 Hematuria, unspecified (principal); E87.6 Hypokalemia; Z59.82 Transportation insecurity; Z59.811 Housing instability, housed, with risk of homelessness; Z59.87 Material hardship due to limited financial resources, not elsewhere classified; Z73.9 Problem related to life management difficulty, unspecified
CPT/HCPCS: 36415; 80053; 83690; 87077; 96361; 96374; 99284; 74176; 81003; 81015; 85025; 87086; 87186; 99283; J2405; J3480

== ENCOUNTER 2025-08-22 10:49 | Outpatient (REF) | payer MEDICARE, SELFPAY ==
[2025-08-22 14:13] LABS: Glucose Negative (Negative)
[2025-08-22 14:20] LABS: RBC >50 HPF (0-2)
== END 2025-08-22 10:50 | disposition home or self-care (01) ==
LOC: LBN 10:49
PROVIDERS: PCP Nurse Practitioner Family; Visit Provider Nurse Practitioner Family
DX: R41.0 Disorientation, unspecified (principal); R31.9 Hematuria, unspecified
CPT/HCPCS: 87077; 81003; 81015; 87086; 87186